=== PATIENT | female | born 1950 | race Caucasian/White ===

== ENCOUNTER → 2017-03-09 | Outpatient (CLI) | payer MEDICARE, OTHER ==
[~2017-03-09] MED LIST: ASPI-587 PO; CIPR250S2 PO; HYDR-2890 PO; HYDR-623 PO; HYDR1TAB PO; MELO-195 PO; MULT-608 PO; NAPR220T76 PO; OMEP-10 PO; OMEP20CA6 PO; PANT40TA2 PO; POLY17PO21 PO; POLY500P24 MC; SUCR1TAB36 PO; TRM50T PO
--- NOTE | 2017-03-09 18:10 | ECHOCARDIOGRAPHY REPORT ---
DATE OF SERVICE: 03/09/2017 REFERRING PHYSICIAN: Dr. Ned Sun. MEASUREMENT: LVID end diastolic 4.3, IVS thickness 1.1, LVPW thickness 1.0, left atrial diameter 3.9, ejection fraction 60%. FINDINGS: 1. Technical quality is good. 2. The left ventricle is normal in size with normal contractility, systolic function appeared to be normal, estimated ejection fraction 60%. Diastolic dysfunction is suggested by Doppler. 3. The left atrium is normal in size. No clot or thrombus were seen within the left atrium. 4. The right atrium and right ventricle are normal in size. No clot or thrombus were seen within the right side. 5. Mitral valve is normal in morphology with mild mitral regurgitation noted by color Doppler flow. Doppler across the mitral valve showed equalization of E and A, which is suggestive of diastolic dysfunction. 6. Aortic valve is functioning normally. The leaflets were not well visualized. There is no significant aortic stenosis or regurgitation was seen. 7. Tricuspid valve is normal in morphology with mild tricuspid regurgitation noted by color Doppler flow. Doppler across the tricuspid valve estimated pulmonary artery pressure of 20+ right atrial pressure. 8. Pulmonic valve is functioning normally. 9. No pericardial effusion. CONCLUSION: 1. Normal left ventricular size and systolic function, estimated ejection fraction 60%. 2. Mild mitral and tricuspid regurgitation. 3. Estimated pulmonary artery pressure of 30 mmHg. Job ID: [id number] DocumentID: [id number] Dictated Date: 03/09/2017 16:19:42 Vice President Underwriting Date: 03/09/2017 16:54:49 Dictated By: AIDAN GUO MD
== END ==
LOC: CARD 13:42
PROVIDERS: ATTEND Internal Medicine Cardiovascular Disease
DX: K21.9 Gastro-esophageal reflux disease without esophagitis (principal); E78.2 Mixed hyperlipidemia; R07.9 Chest pain, unspecified; I08.1 Rheumatic disorders of both mitral and tricuspid valves
CPT/HCPCS: 93306

== ENCOUNTER 2017-08-31 15:49 | Emergency (ER) | payer MEDICARE, OTHER ==
[~2017-08-31] VITALS: Ht 165.1 cm; Wt 72.6 kg
[2017-08-31] MEDS ORDERED: ADENOSINE 6 MG/2 ML (ADENOCARD) VIAL IV ONE ×3 (15:53→16:00)
[2017-08-31] MEDS ORDERED: NS IV 1000 ML 1,000 ML ONE (15:55)
[2017-08-31] MEDS ORDERED: ASPIRIN 81 MG CHEW (CHILDREN'S ASA) PO STA (16:08)
[2017-08-31] MEDS ORDERED: NS IV 1000 ML 1,000 ML IV ONE (16:09)
--- NOTE | 2017-08-31 16:21 | ED Cardiac General ---
History of Present Illness General Chief Complaint: Cardiac/General Problems Stated Complaint: HEART PROBLEMS;HEART RACING Source: patient Exam Limitations: no limitations (MERCY JEAN BAPTISTE MD) History of Present Illness Time seen by provider: 15:51 Initial Comments Here with report of palpitations that started about 2 p.m. today. States that she feels a heaviness and palpitations with this. She did get clammy earlier but that has improved. School nurse took her pulse and was unable to read it because it was too fast so sent her here to the ER for evaluation. Her primary vocational education teacher is Dr. Hernandez with PCP of Dr. Sun. Doesn't really any significant medical problems. Takes a baby aspirin daily as well as a stomach medicine and low-dose cholesterol medicine. Denies nausea, vomiting, breathing problems, sweating or weakness. Timing/Duration: 1-3 hours, constant Severity: mild Location: central (pressure) Activities at Onset: none Prior CP/Workup: no prior chest pain Modifying Factors: improves with rest NTG SL LAMP SHADE SEWER: No ASA po LAMP SHADE SEWER: Yes Associated Systoms: No Diaphoresis, No Nausea/Vomiting, No Shortness of Air, No Weakness (MERCY JEAN BAPTISTE MD) Allergies and Home Medications Allergies Coded Allergies: No Known Drug Allergies (Unverified , 01/16/12) Home Medications Hydrocodone Bit/Acetaminophen 1 Tab Tablet, 1 EACH PO Q 4 - 6 HRS PRN, #60 Ref 4 Prescribed by: SOCORRO TOWNSEND on 05/01/14 1106 Pantoprazole Sodium 40 Mg Tablet.dr, 40 MG PO DAILY, #90 Prescribed by: KALYAN DALE on 01/21/16 1534 Polyethylene Glycol 3350 17 Gm Powd.pack, 17 GM PO DAILY, (Reported) Sucralfate 1 Gm Tablet, 1 GM PO QID, #120 Prescribed by: KALYAN DALE on 01/21/16 1534 Tramadol Hcl 50 Mg Tab, 50 MG PO Q4H, #60 Ref 1 Prescribed by: SOCORRO TOWNSEND on 05/01/14 1106 Review of Systems Constitutional: see HPI, No chills, No diaphoresis, No fever EENTM: No Symptoms Reported Respiratory: No Symptoms Reported Cardiovascular: See HPI, Denies Edema, Palpitations Gastrointestinal: Denies Nausea, Denies Vomiting Genitourinary: No Symptoms Reported Musculoskeletal: no symptoms reported Skin: no symptoms reported (MERCY JEAN BAPTISTE MD) All Other Systems Reviewed Negative Unless Noted: Yes (MERCY JEAN BAPTISTE MD) Past Jzeosqx-Jqtcly-Vjzqad Hx Patient Social History Alcohol Use: Denies Use Recreational Drug Use: No Smoking Status: Never a Smoker 2nd Hand Smoke Exposure: No Recent Foreign Travel: No Contact w/Someone Who Travel: No Recent Hopitalizations: No Physical Abuse: No Sexual Abuse: No (MERCY JEAN BAPTISTE MD) Immunizations Up To Date Tetanus Booster (TDap): Unknown Date of Pneumonia Vaccine: Nov 23, 2015 (MERCY JEAN BAPTISTE MD) Surgeries History of Surgeries: Yes Surgeries: Abdominal, Section, Gallbladder, Orthopedic (MERCY JEAN BAPTISTE MD) Respiratory History of Respiratory Disorde: No (MERCY JEAN BAPTISTE MD) Cardiovascular History of Cardiac Disorders: No Cardiac Disorders: High Cholesterol (MERCY JEAN BAPTISTE MD) Neurological History of Neurological Disord: No (MERCY JEAN BAPTISTE MD) Reproductive System Hx Reproductive Disorders: No (MERCY JEAN BAPTISTE MD) Gastrointestinal History of Gastrointestinal Di: Yes Gastrointestinal Disorders: Gastroesophageal Reflux (MERCY JEAN BAPTISTE MD) Musculoskeletal History of Musculoskeletal Dis: Yes (ARTHRITIS, DJD) (MERCY JEAN BAPTISTE MD) Endocrine History of Endocrine Disorders: No (MERCY JEAN BAPTISTE MD) Cancer History of Cancer: No (MERCY JEAN BAPTISTE MD) Psychosocial History of Psychiatric Problem: No Suicide Risk Score: 0 (MERCY JEAN BAPTISTE MD) Integumentary History of Skin or Integumenta: No (MERCY JEAN BAPTISTE MD) Blood Transfusions History of Blood Disorders: No Adverse Reaction to a Blood Tr: No (MERCY JEAN BAPTISTE MD) Reviewed Nursing Assessment Reviewed/Agree w Nursing PMH: Yes (MERCY JEAN BAPTISTE MD) Family Medical History Significant Family History: No Pertinent Family Hx Family Medial History: Cancer 19 MOTHER (LARYNX AND SPINE ) Family history: Cardiovascular disease 19 FATHER (MERCY JEAN BAPTISTE MD) Family Medial History: Cancer 19 MOTHER (LARYNX AND SPINE ) Family history: Cardiovascular disease 19 FATHER (KARLENE HOLMAN APRN) Physical Exam Vital Signs Vital Sign - Last 12Hours 08/31/17 15:49 Temp 96.5 Pulse 186 Resp 10 B/P (MAP) 115/84 Pulse Ox 97 O2 Delivery Room Air (KARLENE HOLMAN APRN) Vital Signs Capillary Refill : Less Than 3 Seconds (MERCY JEAN BAPTISTE MD) General Appearance: No Apparent Distress, WD/WN HEENT: PERRL/EOMI, Pharynx Normal Neck: Non Tender, Supple Respiratory: Lungs Clear, Normal Breath Sounds Cardiovascular: No Murmur, Tachycardia Gastrointestinal: Non Tender, Soft Extremity: Normal Inspection, Normal Range of Motion, Non Tender, No Calf Tenderness Neurologic/Psychiatric: Alert, Oriented x3 Skin: Normal Color, Warm/Dry (MERCY JEAN BAPTISTE MD) Progress/Results/Core Measures Results/Orders Lab Results Laboratory Tests Test 08/31/17 16:00 08/31/17 18:20 Range/Units White Blood Count 7.5 4.3-11.0 10^3/uL Red Blood Count 4.99 4.35-5.85 10^6/uL Hemoglobin 15.3 11.5-16.0 G/DL Hematocrit 45 35-52 % Mean Corpuscular Volume 90 80-99 FL Mean Corpuscular Hemoglobin 31 25-34 PG Mean Corpuscular Hemoglobin Concent 34 32-36 G/DL Red Cell Distribution Width 13.2 10.0-14.5 % Platelet Count 640 H 130-400 10^3/uL Mean Platelet Volume 10.5 H 7.4-10.4 FL Neutrophils (%) (Auto) 59 42-75 % Lymphocytes (%) (Auto) 27 12-44 % Monocytes (%) (Auto) 11 0-12 % Eosinophils (%) (Auto) 2 0-10 % Basophils (%) (Auto) 1 0-10 % Neutrophils # (Auto) 4.5 1.8-7.8 X 10^3 Lymphocytes # (Auto) 2.0 1.0-4.0 X 10^3 Monocytes # (Auto) 0.8 0.0-1.0 X 10^3 Eosinophils # (Auto) 0.1 0.0-0.3 10^3/uL Basophils # (Auto) 0.1 0.0-0.1 10^3/uL Prothrombin Time 14.6 12.2-14.7 SEC INR Comment 1.1 0.8-1.4 Activated Partial Thromboplast Time 29 24-35 SEC D-Dimer 0.37 0.00-0.49 UG/ML Sodium Level 140 135-145 MMOL/L Potassium Level 3.8 3.6-5.0 MMOL/L Chloride Level 107 98-107 MMOL/L Carbon Dioxide Level 20 L 21-32 MMOL/L Anion Gap 13 5-14 MMOL/L Blood Urea Nitrogen 15 7-18 MG/DL Creatinine 1.81 H 0.60-1.30 MG/DL Estimat Glomerular Filtration Rate 28 BUN/Creatinine Ratio 8 Glucose Level 111 H 70-105 MG/DL Calcium Level 8.8 8.5-10.1 MG/DL Magnesium Level 1.9 1.8-2.4 MG/DL Total Bilirubin 0.5 0.1-1.0 MG/DL Aspartate Amino Transf (AST/SGOT) 45 H 5-34 U/L Alanine Aminotransferase (ALT/SGPT) 51 0-55 U/L Alkaline Phosphatase 101 40-136 U/L Myoglobin 93.2 H 10.0-92.0 NG/ML Troponin I < 0.30 <0.30 NG/ML Total Protein 7.1 6.4-8.2 GM/DL Albumin 3.8 3.2-4.5 GM/DL Thyroid Stimulating Hormone (TSH) 0.75 0.35-4.94 UIU/ML (KARLENE HOLMAN APRN) My Orders Orders - KARLENE HOLMAN APRN Myoglobin Serum (08/31/17 18:02) Troponin I (08/31/17 18:02) (KARLENE HOLMAN APRN) Medications Given in ED Current Medications Medications Dose Ordered Sig/Thu Route Start Time Stop Time Status Last Admin Dose Admin Adenosine 6 mg ONCE ONCE IV 08/31/17 16:00 08/31/17 16:01 DC 08/31/17 16:03 6 MG Adenosine 12 mg ONCE ONCE IV 08/31/17 16:00 08/31/17 16:01 DC 08/31/17 16:04 12 MG Metoprolol Succinate 25 mg ONCE ONCE PO 08/31/17 16:15 08/31/17 16:16 DC 08/31/17 16:22 25 MG Sodium Chloride 500 ml @ 0 mls/hr Q0M ONCE IV 08/31/17 17:41 08/31/17 17:43 DC 08/31/17 17:54 0 MLS/HR Sodium Chloride 1,000 ml @ 0 mls/hr Q0M ONCE IV 08/31/17 16:09 08/31/17 16:10 DC 08/31/17 16:05 0 MLS/HR (KARLENE HOLMAN APRN) Vital Signs/I&O Vital Sign - Last 12Hours 08/31/17 15:49 Temp 96.5 Pulse 186 Resp 10 B/P (MAP) 115/84 Pulse Ox 97 O2 Delivery Room Air (KARLENE HOLMAN APRN) Progress Note : Progress Note Seen and evaluated. Supraventricular tachycardia noted on monitor and EKG. Advanced medical maneuvers attempted with Nehemias rounds and laying back with leg lift 2 without improvement in her heart rate. Adenosine 6 mg IV attempted which did not change rate. Adenosine 12 mg IV and then given and rate and rhythm change noted. Rate decreased to the 90s. Patient feels much better. Normal saline 1 L bolus initiated. I did discuss the case with Dr. Hernandez. We will give Toprol-XL 25 mg by mouth. Patient does have a mild first degree block and he is okay with the Toprol. Labs, EKG and chest x-ray ordered. Aspirin 324 mg by mouth ordered. Monitor patient. 1745: Labs reviewed. Myoglobin slightly elevated. Patient has been working outside quite a bit this week and her kidney function is elevated and this is likely related to that but we will recheck it as well as troponin to give her indication of rise or stability. All of this was discussed with the patient and family who agree. Repeat normal saline 500 mL bolus. Patient is urinating well. She does admit that she drinks 3 sodas a day but doesn't really drink water and this is likely the cause of the elevated serum creatinine. She was instructed on ensuring adequate fluid intake. Also she was counseled on the need for follow-up with her doctor. We will recheck myoglobin and troponin at 615 p.m. (MERCY JEAN BAPTISTE MD) ECG Initial ECG Impression Date: Aug 31, 2017 Initial ECG Impression Time: 15:53 Initial ECG Rate: 187 Initial ECG Rhythm: SVT Initial ECG Impression: SVT Comment SVT with normal axis. No evidence of ST elevation RI. No previous for comparison. Interpreted by me. EKG : EKG Time: 16:02 Rate: 97 Rhythm: Normal Sinus Intervals: CO (first degree block) ECG Impression: 1st Degree AV Block Comment First degree block with occasional PVC. Normal axis. Change from previous done earlier as now is in sinus rhythm. No evidence of ST elevation RI. Interpreted by me. (MERCY JEAN BAPTISTE MD) Diagnostic Imaging Diagonstic Imaging: Xray Plain Films/CT/US/NM/MRI: chest Comments NAME: [facility] REC#: [id number] PT STATUS: REG ER : 1950 PHYSICIAN: MERCY JEAN BAPTISTE MD ADMIT DATE: 08/31/17/ER Draft Date of Exam:08/31/17 CHEST 1 VIEW, AP/PA ONLY EXAMINATION: Portable upright radiograph of the chest. INDICATION: Palpitations. FINDINGS: There is mild cardiomegaly with minimal vascular congestion. There is no focal consolidation. No effusion or pneumothorax. The mediastinum and kavita appear markable. IMPRESSION: Cardiomegaly with mild vascular congestion. Dictated on workstation # [id number] Dict: 08/31/17 1621 Trans: 08/31/17 1641 [facility] [id number] Interpreted by: ALEXANDRIA SOTO MD Electronically signed by: (MERCY JEAN BAPTISTE MD) Departure Impression Impression: Primary Impression: SVT (supraventricular tachycardia) Disposition: 01 HOME, SELF-CARE Condition: Stable Departure-Patient Inst. Decision time for Depature: 18:50 (KARLENE HOLMAN APRN) Referrals: RYLEY SUN DO (PCP/Family) Primary Care Physician Patient Instructions: Paroxysmal Supraventricular Tachycardia (DC) Add. Discharge Instructions: 1. Follow up with Dr Sun next week for recheck 2. Return to ER for any concerns or worsening symptoms All discharge instructions reviewed with patient and/or family. Voiced understanding. Copy Copies To 1: AIDAN HERNANDEZ MD Copies To 2: RYLEY SUN TIMOTHY D MD Aug 31, 2017 16:21 KARLENE HOLMAN APRN Aug 31, 2017 18:50
[2017-08-31 16:26] LABS: BASOPHILS # (AUTO) 0.1 10^3/uL (0.0-0.1); BASOPHILS % (AUTO) 1 % (0-10); EOSINOPHILS # (AUTO) 0.1 10^3/uL (0.0-0.3); EOSINOPHILS % (AUTO) 2 % (0-10); LYMPHOCYTES % (AUTO) 27 % (12-44); MEAN CORPUSCULAR HEMOGLOBIN 31 PG (25-34); MEAN CORPUSCULAR HGB CONC 34 G/DL (32-36); MEAN CORPUSCULAR VOLUME 90 FL (80-99); MEAN PLATELET VOLUME 10.5 FL (7.4-10.4); MONOCYTES # (AUTO) 0.8 X 10^3 (0.0-1.0); MONOCYTES % (AUTO) 11 % (0-12); NEUTROPHILS # (AUTO) 4.5 X 10^3 (1.8-7.8); NEUTROPHILS % (AUTO) 59 % (42-75); PLATELET COUNT 640 10^3/uL (130-400); RED BLOOD COUNT 4.99 10^6/uL (4.35-5.85); RED CELL DISTRIBUTION WIDTH 13.2 % (10.0-14.5); WHITE BLOOD COUNT 7.5 10^3/uL (4.3-11.0)
[2017-08-31 16:39] LABS: INR 1.1 (0.8-1.4); PROTHROMBIN TIME PATIENT 14.6 SEC (12.2-14.7)
--- NOTE | 2017-08-31 16:42 | Diagnostic Imaging Report ---
EXAMINATION: Portable upright radiograph of the chest. INDICATION: Palpitations. FINDINGS: There is mild cardiomegaly with minimal vascular congestion. There is no focal consolidation. No effusion or pneumothorax. The mediastinum and kavita appear markable. IMPRESSION: Cardiomegaly with mild vascular congestion. Dictated by: Dictated on workstation # [id number]
[2017-08-31 16:54] LABS: ALANINE AMINOTRANSFERASE 51 U/L (0-55); ALBUMIN 3.8 GM/DL (3.2-4.5); ANION GAP 13 MMOL/L (5-14); ASPARTATE AMINO TRANSFERASE 45 U/L (5-34); BILIRUBIN,TOTAL 0.5 MG/DL (0.1-1.0); BLOOD UREA NITROGEN 15 MG/DL (7-18); BUN/CREATININE RATIO 8; CALCIUM 8.8 MG/DL (8.5-10.1); CARBON DIOXIDE 20 MMOL/L (21-32); CHLORIDE 107 MMOL/L (98-107); CREATININE SERUM 1.81 MG/DL (0.60-1.30); GFR ESTIMATED 28; GLUCOSE 111 MG/DL (70-105); MAGNESIUM 1.9 MG/DL (1.8-2.4); POTASSIUM 3.8 MMOL/L (3.6-5.0); SODIUM 140 MMOL/L (135-145); TOTAL PROTEIN 7.1 GM/DL (6.4-8.2)
[2017-08-31 17:14] LABS: MYOGLOBIN SERUM 93.2 NG/ML (10.0-92.0)
[2017-08-31] MEDS ORDERED: NS IV 500 ML 500 ML IV ONE (17:41)
[2017-08-31 18:51] LABS: TROPONIN I < 0.30 NG/ML (<0.30)
[2017-08-31 19:05] VITALS: BP 123/80
== END 2017-08-31 19:05 | disposition home or self-care (01) ==
LOC: EDUNIT# 15:49 → ER 15:51
DX: I47.1 Supraventricular tachycardia (principal); E78.00 Pure hypercholesterolemia, unspecified; K21.9 Gastro-esophageal reflux disease without esophagitis; M19.90 Unspecified osteoarthritis, unspecified site; Z82.49 Family history of ischemic heart disease and other diseases of the circulatory system; Z80.8 Family history of malignant neoplasm of other organs or systems; Z87.59 Personal history of other complications of pregnancy, childbirth and the puerperium
CPT/HCPCS: 36415; 71010; 80053; 83735; 83874; 84443; 84484; 85025; 85379; 85610; 85730; 93005; 93041

== ENCOUNTER → 2017-09-11 | Outpatient (CLI) | payer MEDICARE, OTHER ==
[~2017-09-11] MED LIST changes: +CATHETER FLUSH 10 ML SYR IV PRN; +REGADENOSON 0.4 MG/5 ML SYR (LEXISCAN) IV ONE
[2017-09-11 08:01] VITALS: BP 142/75
[2017-09-11 08:49] LABS: ANION GAP 10 MMOL/L (5-14); BLOOD UREA NITROGEN 15 MG/DL (7-18); BUN/CREATININE RATIO 18; CALCIUM 8.8 MG/DL (8.5-10.1); CARBON DIOXIDE 24 MMOL/L (21-32); CHLORIDE 107 MMOL/L (98-107); CREATININE SERUM 0.82 MG/DL (0.60-1.30); GFR ESTIMATED > 60; GLUCOSE 101 MG/DL (70-105); POTASSIUM 3.9 MMOL/L (3.6-5.0); SODIUM 141 MMOL/L (135-145)
--- NOTE | 2017-09-11 23:00 | STRESS TEST ---
DATE OF SERVICE: 09/11/2017 NUCLEAR MYOVIEW REPORT REFERRING PHYSICIAN: Ned Sun DO. SUMMARY: The patient was injected with 10.52 mCi of technetium-99 Myoview and the resting images were obtained. With peak stress test, a 32.5 mCi of technetium-99 Myoview were injected and stress images were obtained. The resting and stress images were reviewed and compared in the short axis, horizontal long axis, and vertical long axis views. Review of the images showed diaphragmatic attenuation with mild decrease uptake involving the mid to apical inferior wall with mild reversibility. SSS is 0. Transient ischemic dilatation with TID value 1.26. On the gated images, the left ventricle appeared to be normal size with normal contractility. Calculated ejection fraction is 69%. CONCLUSION: 1. Questionable mild ischemia involving the mid to apical inferior wall. 2. Transient ischemic dilatation with TID value 1.26. 3. Normal left ventricular size with normal contractility. Calculated ejection fraction is 69%. Job ID: [id number] DocumentID: [id number] Dictated Date: 09/11/2017 16:44:35 Warp Hauler Date: 09/11/2017 19:16:51 Dictated By: AIDAN GUO MD
== END ==
LOC: CARD 06:52
PROVIDERS: ATTEND Internal Medicine
DX: I47.1 Supraventricular tachycardia (principal); E86.0 Dehydration
CPT/HCPCS: 36415; 78452; 80048; 93017; 93306

== ENCOUNTER 2017-09-20 11:27 | Day surgery (SDC) | payer MEDICARE, OTHER ==
[2017-09-20] VITALS (15 sets, daily range): BP systolic 100–138; BP diastolic 57–78
[~2017-09-20] VITALS: Ht 165.1 cm; Wt 73.0 kg
[~2017-09-20 11:27] MED LIST changes: -CATHETER FLUSH 10 ML SYR IV PRN; -REGADENOSON 0.4 MG/5 ML SYR (LEXISCAN) IV ONE
[2017-09-20] MEDS ORDERED: LIDOCAINE 1% INJ 50 ML (XYLOCAINE) VIAL ONE (11:33)
[2017-09-20] MEDS ORDERED: HEParin (CATH LAB) 2,000 ML IV ONE (11:33)
[2017-09-20] MEDS ORDERED: NS IV 1000 ML 1,000 ML ONE (11:33)
--- NOTE | 2017-09-20 11:47 | Cardiac Procedure Note-CS/ASA ---
Pre-Procedure Note Pre-Op Procedure Note H&P Reviewed The H&P was reviewed, patient examined and no changes noted. Date H&P Reviewed: Sep 20, 2017 Time H&P Reviewed: 11:47 Conscious Sedation Pre-Proced Time Reviewed: 11:47 ASA Class: 3 Airway Mallampati Classification: ([place] appropriate class) I. II. III, IV Lungs Heart ASA score ASA 1: a normal healthy patient ASA 2: a patient with a mild systemic disease (mid diabetes, controlled hypertension, obesity x ASA 3: a patient with a severe systemic disease that limits activity (angina , COPD, prior Myocardial infarction) ASA 4: a patient with an incapacitating disease that is a constant threat to life (CHF, renal failure) ASA 5: a moribund patient not expected to survive 24 hrs. (ruptured aneurysm) ASA 6: a declared brain patient whose organs are being harvested. For emergent operations, add the letter E after the classification Grade 3 Sedation Plan: Analgesia, Amnesia, Plan communicated to team members, Discussed options with patient/fam, Discussed risks with patient/fam Note The patient is an appropriate candidate to undergo the planned procedure, sedation, and anesthesia. The patient immediately re-assessed prior to indication. AIDAN GUO MD Sep 20, 2017 11:47
[2017-09-20 11:52] LABS: RED BLOOD COUNT 4.87 10^6/uL (4.35-5.85); WHITE BLOOD COUNT 6.4 10^3/uL (4.3-11.0)
[2017-09-20 11:53] LABS: BILIRUBIN,URINE NEGATIVE (NEGATIVE); KETONES,URINE NEGATIVE (NEGATIVE); LEUKOCYTE ESTERASE ,URINE 2+ (NEGATIVE); NITRITE,URINE NEGATIVE (NEGATIVE); PH,URINE 6 (5-9); PROTEIN,URINE NEGATIVE (NEGATIVE); UROBILINOGEN,URINE NORMAL (NORMAL)
--- NOTE | 2017-09-20 11:58 | Diagnostic Imaging Report ---
INDICATION: Hypertension FINDINGS: The lungs are clear. The heart and vessels normal. There is no effusion or pneumothorax. IMPRESSION: Negative. Dictated by: Dictated on workstation # [id number]
[2017-09-20] MEDS ORDERED: NS IV 1000 ML 1,000 ML IV SCH ×3 (12:00→13:11)
[2017-09-20] MEDS ORDERED: OMG1KC PO (12:03)
[2017-09-20] MEDS ORDERED: PANT40TA2 PO (12:03)
[2017-09-20] MEDS ORDERED: ATOR10TA66 PO (12:03)
[2017-09-20] MEDS ORDERED: ASPI-983 PO (12:03)
[2017-09-20] MEDS ORDERED: OMEG-160 PO (12:03)
[2017-09-20 12:11] LABS: ALBUMIN 4.2 GM/DL (3.2-4.5); BILIRUBIN,TOTAL 0.8 MG/DL (0.1-1.0); CALCIUM 8.9 MG/DL (8.5-10.1); CREATININE SERUM 0.94 MG/DL (0.60-1.30); INR 1.1 (0.8-1.4); PROTHROMBIN TIME PATIENT 14.1 SEC (12.2-14.7); TOTAL PROTEIN 7.6 GM/DL (6.4-8.2)
[2017-09-20] MEDS ORDERED: NITROGLYCERIN DRIP 25 MG/D5W 250 ML IV ONE (12:29)
[2017-09-20] MEDS ORDERED: fentaNYL INJECTION 100 MCG/2 ML AMP ONE (12:29)
[2017-09-20] MEDS ORDERED: VERAPAMIL 5 MG/2 ML (CALAN) VIAL IV ONE (12:29)
[2017-09-20] MEDS ORDERED: HEParin 1000 UNIT/ML (10ML VIAL) FOR BOLUS ONE (12:29)
[2017-09-20] MEDS ORDERED: MIDAZOLAM 2 MG/2 ML (VERSED) VIAL ONE (12:29)
--- NOTE | 2017-09-20 13:13 | Discharge Inst-Post CATH ---
Discharge Inst-CATH Post Cardiac Cath D/C Inst Follow Up/Plan Appointment with Dr. Hernandez's office in 2-4 weeks CARDIAC CATH DISCHARGE INSTRUCTIONS *Hold Metformin for 48 hours post heart cath. ACTIVITY * Go Home directly and rest. * Limit activity of the leg (or wrist if it was used) for 7 days including aerobics, swimming, jogging, bicycling, etc. * Restrict stair-climbing for 7 days if possible, if not, climb up with your non -cath leg, then bring together on the same step. * Avoid lifting, pushing, pulling or excessive movement of the affected extremity for 7 days. * Customary sexual activity may be resumed after 2 days-use caution not to use a position that strains or causes pain to the affected extremity. * No driving for 24 hours. * NO SMOKING. * Avoid straining for bowel movements for 7 days. * Gentle walking on level ground is allowed. * Returning to work will depend on the type of procedure and the results. Your doctor will discuss this with you. CALL YOUR DOCTOR FOR ANY OF THE FOLLOWING: *If bleeding from the puncture site occurs- Apply gentle pressure to site with clean cloth and call your doctor or EMS. * If a knot or lump forms under the skin, increases in size, or causes pain. * If bruising appears to be worsening or moving further down your leg instead of disappearing. * Temperature above 101 F. CARE OF YOUR GROIN INCISION; * Bruising or purple discoloration of the skin near the puncture site is common. * You may shower only, no bathtub bathing for 5 days. Be careful to avoid slipping as your leg may feel stiff. * If a closure device was used on your femoral artery, please see the attached guide regarding care of the device and your leg. * REMOVE the dressing from your groin the next day after your procedure in the shower. CARE OF YOUR WRIST INCISION; * Bruising or purple discoloration of the skin near the puncture site is common. * You may shower. * DO NOT submerge wrist. * Remove dressing in 24 hours. AIDAN HERNANDEZ MD Sep 20, 2017 13:13
--- NOTE | 2017-09-20 13:17 | Cardiac Cath Report ---
Cardiac Cath Report Physician (s)/Airbrush Artist (s) Physician AIDAN GUO MD Pre-Procedure Diagnosis Pre-Procedure Diagnosis: coronary artery disease Post-Procedure Note Procedure Start Date: Sep 20, 2017 Name of Procedure: coronary angiogram 10014 Findings/Procedure Note PROCEDURE NOTE: After explaining the procedure to the patient, all pros and cons were explained, all questions were answered. The patient signed the consent and then she was placed on the cardiac catheterization laboratory. The patient was placed on the cardiac catheterization laboratory. wrist was prepped SL fashion local anesthesia was used. Sheath placed in the right radial artery. Hayden catheter was used for access the right and left coronary system At the end of the procedure the sheath was removed. Closure device was used FINDINGS: Hemodynamics Aorta 108/71 mean of 54 ANATOMY: Left Main is free of obstructive disease Left Anterior Descending has mild disease distally Left Circumflex has mild disease at the midportion nonobstructive disease Right Coronory Artery his small with no obstructive disease CONCLUSION: 1. Small coronary system with mild disease nonobstructive disease 2. Normal aortic pressure DISCUSSION AND RECOMMENDATION: Continue medical therapy, abnormal stress test is probably due to extracardiac attenuation Anesthesia Type: Conscious Sedation Estimated blood loss (mL): 5 ml Contrast Amount: 33 ml Total Radiation Dose: 218 mGy Post-Procedure Diagnosis Post-operative diagnosis: Chest pain nonspecific etiology Coronary artery disease Hyperlipidemia Gastroesophageal reflux disease AIDAN GUO MD Sep 20, 2017 13:17
== END 2017-09-20 17:15 | disposition home or self-care (01) ==
LOC: CATH 11:27 → ICU 13:24 → CATH 17:15
PROVIDERS: ATTEND Internal Medicine Cardiovascular Disease
DX: R07.89 Other chest pain (principal); I25.10 Atherosclerotic heart disease of native coronary artery without angina pectoris; E78.2 Mixed hyperlipidemia; I65.23 Occlusion and stenosis of bilateral carotid arteries; K21.9 Gastro-esophageal reflux disease without esophagitis; R94.39 Abnormal result of other cardiovascular function study; Z79.82 Long term (current) use of aspirin; Z79.899 Other long term (current) drug therapy; Z96.652 Presence of left artificial knee joint
CPT/HCPCS: 36415; 71010; 80053; 80061; 81000; 85027; 85610; 85730; 87081; 87088; 93005; 93454

== ENCOUNTER 2018-06-25 19:14 | Emergency (ER) | payer MEDICARE, OTHER ==
[~2018-06-25] VITALS: Ht 165.1 cm; Wt 73.0 kg
[~2018-06-25 19:14] MED LIST changes: +ASPI-983 PO; +ATOR10TA66 PO; +OMEG-160 PO; +OMG1KC PO
[2018-06-25] MEDS ORDERED: ADENOSINE 6 MG/2 ML (ADENOCARD) VIAL IV ONE ×2 (19:30)
[2018-06-25] MEDS: ADENOSINE 6 MG/2 ML (ADENOCARD) VIAL IV ONE ×2 (19:33→19:37)
[2018-06-25] MEDS ORDERED: NS IV 1000 ML 1,000 ML IV ONE (19:41)
[2018-06-25] MEDS ORDERED: ASPIRIN 81 MG CHEW (CHILDREN'S ASA) PO ONE (19:45)
[2018-06-25] MEDS ORDERED: DILTIAZEM 25 MG/5 ML INJ (CARDIZEM) VIAL IVP ONE (19:45)
[2018-06-25 19:47] LABS: BASOPHILS # (AUTO) 0.1 10^3/uL (0.0-0.1); BASOPHILS % (AUTO) 1 % (0-10); EOSINOPHILS # (AUTO) 0.2 10^3/uL (0.0-0.3); EOSINOPHILS % (AUTO) 2 % (0-10); HEMATOCRIT 43 % (35-52); HEMOGLOBIN 15.1 G/DL (11.5-16.0); LYMPHOCYTES # (AUTO) 2.1 X 10^3 (1.0-4.0); LYMPHOCYTES % (AUTO) 22 % (12-44); MEAN CORPUSCULAR HEMOGLOBIN 31 PG (25-34); MEAN CORPUSCULAR HGB CONC 35 G/DL (32-36); MEAN CORPUSCULAR VOLUME 89 FL (80-99); MEAN PLATELET VOLUME 9.8 FL (7.4-10.4); MONOCYTES % (AUTO) 10 % (0-12); NEUTROPHILS # (AUTO) 6.5 X 10^3 (1.8-7.8); NEUTROPHILS % (AUTO) 66 % (42-75); PLATELET COUNT 718 10^3/uL (130-400); RED BLOOD COUNT 4.83 10^6/uL (4.35-5.85); RED CELL DISTRIBUTION WIDTH 13.6 % (10.0-14.5); WHITE BLOOD COUNT 9.8 10^3/uL (4.3-11.0)
--- NOTE | 2018-06-25 19:48 | ED Cardiac General ---
History of Present Illness General Stated Complaint: SOB/CARDIAC ISSUES Source: patient Exam Limitations: no limitations History of Present Illness Date Seen by Provider: Jun 25, 2018 Time Seen by Provider: 19:30 Initial Comments PT ARRIVES VIA POV FROM HOME C/O RAPID HEART BEAT SINCE 1800 STATES SHE HAD GONE TO A VOLLEYBALL GAME, AND WAS WALKING UP STAIRS OF BLEACHERS WHEN SHE SUDDENLY HAD RAPID HEART BEAT, SLIGHT SHORTNESS OF BREATH, SLIGHT LIGHTHEADEDNESS AND WAS SWEATY DROVE HOME AND THEN CAME HERE STATES NO CHEST PAIN NO LONGER SHORT OF BREATH NO SWEATS NOW NO SWELLING IN LEGS/ FEET OR PAIN IN [place] HAS HAD THIS ONE OTHER TIME IN JANUARY OF THIS YEAR SEEN BY DR. GUO AND HAD NORMAL STRESS TEST AND ECHOCARDIOGRAM IS NOT ON ANY MEDICATIONS FOR IT PCP: DR. HARVEY Allergies and Home Medications Allergies Coded Allergies: No Known Drug Allergies (Unverified , 01/16/12) Home Medications Aspirin 81 Mg Tablet.dr, 81 MG PO DAILY, (Reported) Atorvastatin Calcium 10 Mg Tablet, 10 MG PO DAILY, (Reported) [place] 3 Polyunsat Fatty Acids 1,000 Mg Cap, 1,000 MG PO EVENING, (Reported) [place]-3/Dha/Epa/Fish Oil 1 Each Capsule, 2,000 MG PO AM, (Reported) Pantoprazole Sodium 40 Mg Tablet.dr, 40 MG PO DAILY, (Reported) Patient Home Medication List Home Medication List Reviewed: Yes Review of Systems Review of Systems Constitutional: see HPI, diaphoresis, dizziness, weakness EENTM: No Symptoms Reported Respiratory: See HPI, Shortness of Air, SOA With Exertion Cardiovascular: See HPI; Denies Chest Pain, Denies Edema; Irregular Heart Rate , Lightheadedness, Palpitations; Denies Syncope Gastrointestinal: No Symptoms Reported; Denies Abdominal Pain, Denies Nausea, Denies Vomiting Genitourinary: No Symptoms Reported Musculoskeletal: no symptoms reported Skin: no symptoms reported Psychiatric/Neurological: No Symptoms Reported Endocrine: No Symptoms Reported Hematologic/Lymphatic: No Symptoms Reported Past Voaqhga-Hyxbta-Zaczqq Hx Patient Social History Alcohol Use: Denies Use Recreational Drug Use: No Smoking Status: Never a Smoker 2nd Hand Smoke Exposure: No Recent Foreign Travel: No Contact w/Someone Who Travel: No Recent Hopitalizations: No Immunizations Up To Date Tetanus Booster (TDap): Unknown Date of Pneumonia Vaccine: Nov 23, 2015 Date of Influenza Vaccine: Sep 05, 2017 Past Medical History Surgeries: Yes ( X 3; BILATERAL TOTAL KNEE REPLACEMENTS; COLON RESECTION FOR OBSTRUCTION; OPEN CHOLECYSTECTOMY) Abdominal, Bowel Surgery, Section, Gallbladder, Joint Replacement, Orthopedic Respiratory: No Cardiac: Yes (SVT--NORMAL ECHOCARDIOGRAM AND STRESS TEST 01/2018 ) High Cholesterol, Irregular Heartbeat Neurological: No Reproductive Disorders: No Genitourinary: No Gastrointestinal: Yes (S/P COLON RESECTION FOR OBSTRUCTION; OPEN CHOLECYSTECTOMY) Gastroesophageal Reflux, Obstructive Bowel, Gall Bladder Disease Musculoskeletal: Yes (ARTHRITIS, DJD) Arthritis Endocrine: No HEENT: No Cancer: No Psychosocial: No Integumentary: No Blood Disorders: No Adverse Reaction/Blood Tranf: No Family Medical History Cancer 19 MOTHER (LARYNX AND SPINE ) Family history: Cardiovascular disease 19 FATHER No Pertinent Family Hx Physical Exam Vital Signs Vital Signs - First Documented 06/25/18 06/25/18 19:30 21:28 Pulse 77 Resp 17 B/P (MAP) 81/54 (63) Pulse Ox 99 O2 Delivery Room Air Capillary Refill : Height, Weight, BMI Height: 5'5.00" Weight: 161lbs. 0.0oz. 73.962246cl; 26.8 BMI Method:Stated General Appearance: No Apparent Distress, WD/WN, Other (SMILING TALKATIVE) Neck: Full Range of Motion, Normal Inspection, Non Tender, Supple; No Carotid Bruit Respiratory: Normal Breath Sounds, No Accessory Muscle Use, No Respiratory Distress Cardiovascular: No Edema, No Gallop, No JVD, No Murmur, Normal Peripheral Pulses, Tachycardia Gastrointestinal: Normal Bowel Sounds, No Organomegaly, No Pulsatile Mass, Non Tender Extremity: Normal Capillary Refill, Normal Inspection, Normal Range of Motion, Non Tender, No Calf Tenderness, No Pedal Edema Neurologic/Psychiatric: Alert, Oriented x3, No Motor/Sensory Deficits, Normal Mood/Affect, 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-XII Norm as Tested Skin: Normal Color, Warm/Dry Progress/Results/Core Measures Results/Orders Lab Results Laboratory Tests Test 06/25/18 19:35 Range/Units White Blood Count 9.8 4.3-11.0 10^3/uL Red Blood Count 4.83 4.35-5.85 10^6/uL Hemoglobin 15.1 11.5-16.0 G/DL Hematocrit 43 35-52 % Mean Corpuscular Volume 89 80-99 FL Mean Corpuscular Hemoglobin 31 25-34 PG Mean Corpuscular Hemoglobin Concent 35 32-36 G/DL Red Cell Distribution Width 13.6 10.0-14.5 % Platelet Count 718 H 130-400 10^3/uL Mean Platelet Volume 9.8 7.4-10.4 FL Neutrophils (%) (Auto) 66 42-75 % Lymphocytes (%) (Auto) 22 12-44 % Monocytes (%) (Auto) 10 0-12 % Eosinophils (%) (Auto) 2 0-10 % Basophils (%) (Auto) 1 0-10 % Neutrophils # (Auto) 6.5 1.8-7.8 X 10^3 Lymphocytes # (Auto) 2.1 1.0-4.0 X 10^3 Monocytes # (Auto) 1.0 0.0-1.0 X 10^3 Eosinophils # (Auto) 0.2 0.0-0.3 10^3/uL Basophils # (Auto) 0.1 0.0-0.1 10^3/uL Prothrombin Time 14.4 12.2-14.7 SEC INR Comment 1.1 0.8-1.4 Activated Partial Thromboplast Time 33 24-35 SEC Sodium Level 140 135-145 MMOL/L Potassium Level 3.7 3.6-5.0 MMOL/L Chloride Level 105 98-107 MMOL/L Carbon Dioxide Level 19 L 21-32 MMOL/L Anion Gap 16 H 5-14 MMOL/L Blood Urea Nitrogen 17 7-18 MG/DL Creatinine 1.33 H 0.60-1.30 MG/DL Estimat Glomerular Filtration Rate 40 BUN/Creatinine Ratio 13 Glucose Level 147 H 70-105 MG/DL Calcium Level 9.2 8.5-10.1 MG/DL Corrected Calcium 9.2 8.5-10.1 MG/DL Magnesium Level 2.1 1.8-2.4 MG/DL Total Bilirubin 0.6 0.1-1.0 MG/DL Aspartate Amino Transf (AST/SGOT) 22 5-34 U/L Alanine Aminotransferase (ALT/SGPT) 26 0-55 U/L Alkaline Phosphatase 80 40-136 U/L Total Creatine Kinase 60 29-168 U/L Creatine Kinase MB 1.1 <6.6 NG/ML Myoglobin 70.1 10.0-92.0 NG/ML Troponin I < 0.30 <0.30 NG/ML B-Type Natriuretic Peptide 17.1 <100.0 PG/ML Total Protein 6.7 6.4-8.2 GM/DL Albumin 4.0 3.2-4.5 GM/DL TSH [place] Testing 1.24 0.35-4.94 UIU/ML My Orders Orders - KEN ALANIZ DO Cbc With Automated Diff (06/25/18) Magnesium (06/25/18) Chest 1 View, Ap/Pa Only (06/25/18) Ekg Tracing (06/25/18) Cardiac Profile 1 (06/25/18) Comprehensive Metabolic Panel (06/25/18) Myoglobin Serum (06/25/18) Protime With Inr (06/25/18) Partial Thromboplastin Time (06/25/18) O2 (06/25/18) Monitor-Rhythm Ecg Trace Only (06/25/18) Aspirin Chewable Tablet (Baby Aspirin Ch (06/25/18:45) Saline Lock/Iv-Start (06/25/18) Creatine Kinase (06/25/18) Creatine Kinase Mb (06/25/18) BNP (06/25/18) Thyroid Analyzer (06/25/18) Diltiazem Injection (Cardizem Injection) (06/25/18:45) Adenosine Injection (Adenocard Injection (06/25/18:30) Adenosine Injection (Adenocard Injection (06/25/18:30) Adenosine Injection (Adenocard Injection (06/25/18:45) Saline Lock/Iv-Start (06/25/18:41) Ns Iv 1000 Ml (Sodium Chloride 0.9%) (06/25/18:41) Ekg Tracing (06/26/18 03:10) Ekg Tracing (06/26/18 03:10) Medications Given in ED Vital Signs/I&O 06/25/18 06/25/18 19:30 21:28 Pulse 77 Resp 17 B/P (MAP) 81/54 (63) 128/75 (63) Pulse Ox 99 O2 Delivery Room Air 06/26/18 00:00 Intake Total 1000 ml Balance 1000 ml Progress Progress Note : Progress Note CONVERTED TO NSR WITH ADENOSINE 6 MG PT REMAINED IN NSR AND HAD NO COMPLAINTS OR SYMPTOMS FOR REMAINDER OF ER STAY Initial ECG Impression Date: Jun 25, 2018 Initial ECG Impression Time: 19:30 Initial ECG Rate: 152 Initial ECG Rhythm: SVT EKG : EKG Time: 19:34 Rate: 100 Rhythm: JUNCTIONAL RHYTHM Comment EKG #3 AT 1935-RATE 85, NSR, NO ACUTE CHANGES Diagnostic Imaging Comments CXR--NO ACUTE PROCESS, PENDING RADIOLOGIST REVIEW Reviewed: Reviewed by Me Departure Communication (Admissions) 2029--SPOKE WITH DR. GUO, HE ADVISES TO SEND PT HOME AND HE WILL SEE IN OFFICE THIS WEEK Impression Primary Impression: PSVT (paroxysmal supraventricular tachycardia) Disposition: 01 HOME, SELF-CARE Condition: Improved Departure-Patient Inst. Referrals: AIDAN GUO MD, WILLIAM J DO (PCP/Family) Primary Care Physician Patient Instructions: Paroxysmal Supraventricular Tachycardia (DC) Add. Discharge Instructions: HOME, REST AVOID CAFFEINE, DECONGESTANTS OR ANY STIMULANTS FOLLOW UP WITH DR GUO IN 1-2 DAYS--CALL IN AM TO MAKE APPOINTMENT RETURN TO ER IF SYMPTOMS RETURN KEN ALANIZ DO Jun 25, 2018 19:48
[2018-06-25 19:57] LABS: INR 1.1 (0.8-1.4); PROTHROMBIN TIME PATIENT 14.4 SEC (12.2-14.7)
[2018-06-25 20:05] LABS: ALANINE AMINOTRANSFERASE 26 U/L (0-55); ALKALINE PHOSPHATASE 80 U/L (40-136); BILIRUBIN,TOTAL 0.6 MG/DL (0.1-1.0); BUN/CREATININE RATIO 13; CALCIUM 9.2 MG/DL (8.5-10.1); CARBON DIOXIDE 19 MMOL/L (21-32); CHLORIDE 105 MMOL/L (98-107); CREATINE KINASE 60 U/L (29-168); CREATININE SERUM 1.33 MG/DL (0.60-1.30); GFR ESTIMATED 40; GLUCOSE 147 MG/DL (70-105); MAGNESIUM 2.1 MG/DL (1.8-2.4); POTASSIUM 3.7 MMOL/L (3.6-5.0); SODIUM 140 MMOL/L (135-145); TOTAL PROTEIN 6.7 GM/DL (6.4-8.2)
--- NOTE | 2018-06-25 20:07 | Diagnostic Imaging Report ---
INDICATION: Chest pain COMPARISON: 09/20/2017 TECHNIQUE: Single frontal radiograph of the chest dated 06/25/2018. FINDINGS: The cardiac silhouette is at the upper limits of normal in size. No significant pulmonary vascular congestion. The lungs are clear of focal pulmonary opacity. No pleural effusion. No pneumothorax. No acute osseous abnormality. IMPRESSION: Similar appearing examination without acute cardiopulmonary abnormality. Dictated by: Dictated on workstation # [id number]
[2018-06-25 20:13] LABS: CREATINE KINASE MB 1.1 NG/ML (<6.6); MYOGLOBIN SERUM 70.1 NG/ML (10.0-92.0)
[2018-06-25 21:28] VITALS: BP 128/75
== END 2018-06-25 21:30 | disposition home or self-care (01) ==
LOC: EDUNIT# 19:14 → ER 19:15
DX: I47.1 Supraventricular tachycardia (principal); E78.00 Pure hypercholesterolemia, unspecified; K21.9 Gastro-esophageal reflux disease without esophagitis; Z80.8 Family history of malignant neoplasm of other organs or systems; Z87.448 Personal history of other diseases of urinary system; Z82.49 Family history of ischemic heart disease and other diseases of the circulatory system; Z87.19 Personal history of other diseases of the digestive system; Z79.82 Long term (current) use of aspirin; Z98.890 Other specified postprocedural states; Z96.653 Presence of artificial knee joint, bilateral; Z90.49 Acquired absence of other specified parts of digestive tract
CPT/HCPCS: 36415; 71045; 80053; 82550; 82553; 83735; 83874; 83880; 84443; 84484; 85025; 85610; 85730; 93005; 93041; 96361; 96374

== ENCOUNTER 2018-12-26 02:59 | Emergency (ER) | payer MEDICARE, OTHER ==
[~2018-12-26] VITALS: Ht 165.1 cm; Wt 72.6 kg
--- OUTSIDE RECORDS SUMMARY | 2018-12-26 03:06 | XMS REPORT | Continuity of Care Document ---
Demographics Preferred Language Unknown Marital Status Unknown Restoration Affiliation Unknown Race Unknown Ethnic Group Unknown Author Author [facility] Address Unknown Phone Unavailable Allergies Active Description Code Type Severity Reaction Onset Reported/Identified Relationship to Patient Clinical Status Yes No Known Drug Allergies [id number] Drug Allergy Unknown N/A 01/16/2012 Medications There is no data. Problems Date Dx Coded Attending Type Code Diagnosis Diagnosed By 01/09/2012 564.00 CONSTIPATION 03/05/2012 Ot V58.31 ENCOUNTER FOR CHANGE OR REMOVAL OF SURGI 06/22/2012 Ot 998.59 OTH POSTOPER INFECTION 06/22/2012 Ot V58.30 ENCOUNTER FOR CHANGE OR REMOVAL OF NONSU 03/06/2014 JOSELITO DO KANDY Hills Ot 715.36 LOC OSTEOARTH NOS-L/LEG 05/01/2014 JOSELITO DO KANDY Hills Ot 715.36 LOC OSTEOARTH NOS-L/LEG 05/01/2014 JOSELITO , KANDY Hills Ot 788.20 RETENTION OF URINE NOS 01/21/2016 Ot 562.10 01/21/2016 Ot 562.10 01/21/2016 Ot V72.63 01/21/2016 Ot V74.8 01/21/2016 JOSELITO DO, KANDY Hills Ot 715.36 01/21/2016 JOSELITO DO, KANDY Hills Ot V72.63 01/21/2016 JOSELITO DO, KANDY F Ot V72.81 01/21/2016 JOSELITO DO, KANDY Hills Ot V72.83 01/21/2016 JOSELITO DO, KANDY F Ot V72.84 01/21/2016 JOSELITO DO, KANDY F Ot V74.8 01/21/2016 JOSELITO DO, KANDY F Ot 715.36 01/21/2016 JOSELITO DO, KANDY F Ot 791.9 01/21/2016 JOSELITO DO, KANDY F Ot V72.63 01/21/2016 JOSELITO DO, KANDY Reinier Ot V74.8 01/21/2016 JOSELITO DO, KANDY Reinier Ot V43.65 01/21/2016 JOSELITO DO KANDY Hills Ot V58.61 01/21/2016 JOSELITO DO KANDY Reinier Ot V58.83 01/21/2016 CHITO PRIEST, KALYAN Nicole K21.0 GASTRO-ESOPHAGEAL REFLUX DISEASE WITH ES 01/21/2016 CHITO PRIEST, KALYAN Ot K22.2 ESOPHAGEAL OBSTRUCTION 01/21/2016 CHITO PRIEST, KALYAN Ot K29.70 GASTRITIS, UNSPECIFIED, WITHOUT BLEEDING 01/21/2016 CHITO PRIEST, KALYAN Ot K44.9 DIAPHRAGMATIC HERNIA WITHOUT OBSTRUCTION 01/21/2016 CHITO PRIEST, KALYAN Ot T18.108A UNSP FOREIGN BODY IN ESOPHAGUS CAUSING O 01/22/2016 CHITO PRIEST, KALYAN Ot K21.0 01/22/2016 CHITO PRIEST, KALYAN Ot K22.2 01/22/2016 CHITO PRIEST, KALYAN Nicole K29.70 01/22/2016 CHITO PRIEST, KALYAN Nicole K44.9 01/22/2016 CHITO PRIEST, KALYAN Nicole T18.108A 03/09/2017 Ot 562.10 DIVERTICULOSIS COLON (W/O MENT OF HEMORR 03/09/2017 Ot 562.10 DIVERTICULOSIS COLON (W/O MENT OF HEMORR 03/09/2017 Ot V72.63 PRE- PROCEDURAL LABORATORY EXAMINATION 03/09/2017 Ot V74.8 SCREEN- BACTERIAL DIS NEC 03/09/2017 JOSELITO KANDY RADER Ot 715.36 LOC OSTEOARTH NOS-L/LEG 03/09/2017 JOSELITO DO KANDY Reinier Ot V72.63 PRE-PROCEDURAL LABORATORY EXAMINATION 03/09/2017 JOSELITO DO KANDY F Ot V72.81 SPTA-RNA-SYHHXCZZV CARDIOVASCULAR 03/09/2017 KANDY YEE DO Ot V72.83 EXAM PRE-OPERATIVE NEC 03/09/2017 JOSELITO DO KANDY Reinier Ot V72.84 EXAM PRE-OPERATIVE NOS 03/09/2017 JOSELITO KANDY RADER Ot V74.8 SCREEN-BACTERIAL DIS NEC 03/09/2017 KANDY YEE DO Ot 715.36 LOC OSTEOARTH NOS-L/LEG 03/09/2017 KANDY YEE DO Ot 791.9 ABN URINE FINDINGS NEC 03/09/2017 JOSELITO DO KANDY Reinier Ot V72.63 PRE-PROCEDURAL LABORATORY EXAMINATION 03/09/2017 KANDY YEE DO Ot V74.8 SCREEN-BACTERIAL DIS NEC 03/09/2017 KANDY YEE DO Ot V43.65 KNEE JOINT REPLACEMENT STATUS 03/09/2017 KANDY YEE DO Ot V58.61 ANTICOAGULANTS,LT,CURRENT USE 03/09/2017 KANDY YEE DO Ot V58.83 ENCOUNTER FOR THERAPEUTIC DRUG MONITORIN 03/10/2017 AIDAN GUO MD Ot E78.2 MIXED HYPERLIPIDEMIA 03/10/2017 AIDAN GUO MD Ot I08.1 RHEUMATIC DISORDERS OF BOTH MITRAL AND T 03/10/2017 AIDAN GUO MD Ot K21.9 GASTRO-ESOPHAGEAL REFLUX DISEASE WITHOUT 03/10/2017 AIDAN GUO MD Ot R07.9 CHEST PAIN, UNSPECIFIED 03/30/2017 AIDAN GUO MD Ot E78.2 MIXED HYPERLIPIDEMIA 03/30/2017 AIDAN GUO MD Ot I08.1 RHEUMATIC DISORDERS OF BOTH MITRAL AND T 03/30/2017 AIDAN GUO MD Ot K21.9 GASTRO-ESOPHAGEAL REFLUX DISEASE WITHOUT 03/30/2017 AIDAN GUO MD Ot R07.9 CHEST PAIN, UNSPECIFIED 04/12/2017 AIDAN GUO MD Ot E78.2 MIXED HYPERLIPIDEMIA 04/12/2017 AIDAN GUO MD Ot I08.1 RHEUMATIC DISORDERS OF BOTH MITRAL AND T 04/12/2017 AIDAN GUO MD Ot K21.9 GASTRO-ESOPHAGEAL REFLUX DISEASE WITHOUT 04/12/2017 AIDAN GUO MD Ot R07.9 CHEST PAIN, UNSPECIFIED 08/31/2017 KARLENE HOLMAN APRN Ot E78.00 PURE HYPERCHOLESTEROLEMIA, UNSPECIFIED 08/31/2017 KARLENE HOLMAN APRN Ot I47.1 SUPRAVENTRICULAR TACHYCARDIA 08/31/2017 KARLENE HOLMAN APRN Ot K21.9 GASTRO-ESOPHAGEAL REFLUX DISEASE WITHOUT 08/31/2017 KARLENE HOLMAN APRN Ot M19.90 UNSPECIFIED OSTEOARTHRITIS, UNSPECIFIED 08/31/2017 KARLENE HOLMAN APRN Ot R00.2 PALPITATIONS 08/31/2017 KARLENE HOLMAN APRN Ot Z80.8 FAMILY HISTORY OF MALIGNANT NEOPLASM OF 08/31/2017 KARLENE HOLMAN APRN Ot Z82.49 FAMILY HX OF ISCHEM HEART DIS AND OTH DI 08/31/2017 KARLENE HOLMAN APRN Ot Z87.59 PERSONAL HISTORY OF COMP OF PREG, CHLDBR 09/12/2017 RYLEY HARVEY DO Ot E86.0 DEHYDRATION 09/12/2017 RYLEY HARVEY DO Ot I47.1 SUPRAVENTRICULAR TACHYCARDIA 09/20/2017 AIDAN GUO MD Ot E78.2 MIXED HYPERLIPIDEMIA 09/20/2017 AIDAN GUO MD Ot I25.10 ATHSCL HEART DISEASE OF [place] CORONARY 09/20/2017 AIDAN GUO MD Ot I65.23 OCCLUSION AND STENOSIS OF BILATERAL [place] 09/20/2017 AIDAN GUO MD Ot K21.9 GASTRO-ESOPHAGEAL REFLUX DISEASE WITHOUT 09/20/2017 AIDAN GUO MD Ot R07.89 OTHER CHEST PAIN 09/20/2017 AIDAN GUO MD Ot R94.39 ABNORMAL RESULT OF OTHER CARDIOVASCULAR 09/20/2017 AIDAN GUO MD Ot Z79.82 SENIOR CARE (CURRENT) USE OF ASPIRIN 09/20/2017 AIDAN GUO MD Ot 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 09/20/2017 AIDAN GUO MD Ot Z96.652 PRESENCE OF LEFT ARTIFICIAL KNEE JOINT 09/25/2017 AIDAN GUO MD Ot E78.2 MIXED HYPERLIPIDEMIA 09/25/2017 AIDAN GUO MD Ot I25.10 ATHSCL HEART DISEASE OF [place] CORONARY 09/25/2017 AIDAN GUO MD Ot I65.23 OCCLUSION AND STENOSIS OF BILATERAL [place] 09/25/2017 AIDAN GUO MD Ot K21.9 GASTRO-ESOPHAGEAL REFLUX DISEASE WITHOUT 09/25/2017 AIDAN GUO MD Ot R07.89 OTHER CHEST PAIN 09/25/2017 AIDAN GUO MD Ot R94.39 ABNORMAL RESULT OF OTHER CARDIOVASCULAR 09/25/2017 AIDAN GUO MD Ot Z79.82 SENIOR CARE (CURRENT) USE OF ASPIRIN 09/25/2017 AIDAN GUO MD Ot 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 09/25/2017 AIDAN GUO MD Ot Z96.652 PRESENCE OF LEFT ARTIFICIAL KNEE JOINT 10/03/2017 RYLEY HARVEY DO Ot E86.0 DEHYDRATION 10/03/2017 RYLEY HARVEY DO Ot I47.1 SUPRAVENTRICULAR TACHYCARDIA 10/10/2017 RYLEY HARVEY DO Ot E86.0 DEHYDRATION 10/10/2017 RYLEY HARVEY DO Ot I47.1 SUPRAVENTRICULAR TACHYCARDIA 10/20/2017 AIDAN GUO MD, Ot E78.2 MIXED HYPERLIPIDEMIA 10/20/2017 AIDAN GUO MD, Ot I25.10 ATHSCL HEART DISEASE OF [place] CORONARY 10/20/2017 AIDAN GUO MD, Ot I65.23 OCCLUSION AND STENOSIS OF BILATERAL [place] 10/20/2017 AIDAN GUO MD, Ot K21.9 GASTRO-ESOPHAGEAL REFLUX DISEASE WITHOUT 10/20/2017 AIDAN GUO MD Ot R07.89 OTHER CHEST PAIN 10/20/2017 AIDAN GUO MD, Ot R94.39 ABNORMAL RESULT OF OTHER CARDIOVASCULAR 10/20/2017 AIDAN GUO MD, Ot 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 10/20/2017 AIDAN GUO MD, Ot 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 10/20/2017 AIDAN GUO MD, Ot Z96.652 PRESENCE OF LEFT ARTIFICIAL KNEE JOINT 06/25/2018 KEN ALANIZ DO Ot E78.00 PURE HYPERCHOLESTEROLEMIA, UNSPECIFIED 06/25/2018 KEN ALANIZ DO Ot I47.1 SUPRAVENTRICULAR TACHYCARDIA 06/25/2018 KEN ALANIZ DO, Ot K21.9 GASTRO-ESOPHAGEAL REFLUX DISEASE WITHOUT 06/25/2018 KEN ALANIZ DO Ot R00.0 TACHYCARDIA, UNSPECIFIED 06/25/2018 KEN ALANIZ DO Ot Z79.82 SENIOR CARE (CURRENT) USE OF ASPIRIN 06/25/2018 KEN ALANIZ DO Ot Z80.8 FAMILY HISTORY OF MALIGNANT NEOPLASM OF 06/25/2018 KEN ALANIZ DO Ot Z82.49 FAMILY HX OF ISCHEM HEART DIS AND OTH DI 06/25/2018 KEN ALANIZ DO, Ot Z87.19 PERSONAL HISTORY OF OTHER DISEASES OF TH 06/25/2018 KEN ALANIZ DO Ot Z87.448 PERSONAL HISTORY OF OTHER DISEASES OF UR 06/25/2018 KEN ALANIZ DO Ot Z90.49 ACQUIRED ABSENCE OF OTHER SPECIFIED PART 06/25/2018 KEN ALANIZ DO Ot Z96.653 PRESENCE OF ARTIFICIAL KNEE JOINT, BILAT 06/25/2018 KEN ALANIZ DO Ot Z98.890 OTHER SPECIFIED POSTPROCEDURAL STATES 06/25/2018 KANDY YEE DO Ot 715.36 LOC OSTEOARTH NOS-L/LEG 06/25/2018 KANDY YEE DO Ot V72.63 PRE-PROCEDURAL LABORATORY EXAMINATION 06/25/2018 KANDY YEE DO Ot V72.81 BZKA-THN-NVIWAIBPO CARDIOVASCULAR 06/25/2018 KANDY YEE DO Ot V72.83 EXAM PRE-OPERATIVE NEC 06/25/2018 JOSELITO RADER KANDY Hills Ot V72.84 EXAM PRE-OPERATIVE NOS 06/25/2018 KANDY YEE DO Ot V74.8 SCREEN-BACTERIAL DIS NEC 06/25/2018 KANDY YEE DO Ot 715.36 LOC OSTEOARTH NOS-L/LEG 06/25/2018 KANDY YEE DO Ot 791.9 ABN URINE FINDINGS NEC 06/25/2018 KANDY YEE DO Ot V72.63 PRE-PROCEDURAL LABORATORY EXAMINATION 06/25/2018 KANDY YEE DO Ot V74.8 SCREEN-BACTERIAL DIS NEC 06/25/2018 KANDY YEE DO Ot V43.65 KNEE JOINT REPLACEMENT STATUS 06/25/2018 KANDY YEE DO Ot V58.61 ANTICOAGULANTS,LT,CURRENT USE 06/25/2018 KANDY YEE DO Ot V58.83 ENCOUNTER FOR THERAPEUTIC DRUG MONITORIN 06/25/2018 AIDAN GUO MD Ot E78.2 MIXED HYPERLIPIDEMIA 06/25/2018 AIDAN GUO MD Ot I08.1 RHEUMATIC DISORDERS OF BOTH [place]RAL AND T 06/25/2018 AIDAN GUO MD Ot K21.9 GASTRO-ESOPHAGEAL REFLUX DISEASE WITHOUT 06/25/2018 AIDAN GUO MD Ot R07.9 CHEST PAIN, UNSPECIFIED 06/25/2018 RYLEY HARVEY DO Ot E86.0 DEHYDRATION 06/25/2018 RYLEY HARVEY DO Ot I47.1 SUPRAVENTRICULAR TACHYCARDIA 06/27/2018 KEN ALANIZ DO Ot E78.00 PURE HYPERCHOLESTEROLEMIA, UNSPECIFIED 06/27/2018 KEN ALANIZ DO Ot I47.1 SUPRAVENTRICULAR TACHYCARDIA 06/27/2018 KEN ALANIZ DO Ot K21.9 GASTRO-ESOPHAGEAL REFLUX DISEASE WITHOUT 06/27/2018 KEN ALANIZ DO Ot R00.0 TACHYCARDIA, UNSPECIFIED 06/27/2018 KEN ALANIZ DO Ot Z79.82 SENIOR CARE (CURRENT) USE OF ASPIRIN 06/27/2018 KEN ALANIZ DO Ot Z80.8 FAMILY HISTORY OF MALIGNANT NEOPLASM OF 06/27/2018 KEN ALANIZ DO Ot Z82.49 FAMILY HX OF ISCHEM HEART DIS AND OTH DI 06/27/2018 KEN ALANIZ DO Ot Z87.19 PERSONAL HISTORY OF OTHER DISEASES OF TH 06/27/2018 KEN ALANIZ DO Ot Z87.448 PERSONAL HISTORY OF OTHER DISEASES OF UR 06/27/2018 KEN ALANIZ DO Ot Z90.49 ACQUIRED ABSENCE OF OTHER SPECIFIED PART 06/27/2018 KEN ALANIZ DO Ot Z96.653 PRESENCE OF ARTIFICIAL KNEE JOINT, BILAT 06/27/2018 KEN ALANIZ DO Ot Z98.890 OTHER SPECIFIED POSTPROCEDURAL STATES Procedures Code Description Performed By Performed On 81.54 TOTAL KNEE REPLACEMENT 03/04/2014 81.54 TOTAL KNEE REPLACEMENT 04/29/2014 Results Test Result Range Complete blood count (CBC) with automated white blood cell (WBC) differential - 08/31/17 16:00 Blood leukocytes automated count (number/volume) 7.5 10*3/uL 4.3-11.0 Blood erythrocytes automated count (number/volume) 4.99 10*6/uL 4.35-5.85 Venous blood hemoglobin measurement (mass/volume) 15.3 g/dL 11.5-16.0 Blood hematocrit (volume fraction) 45 % 35-52 Automated erythrocyte mean corpuscular volume 90 [foz_us] 80-99 Automated erythrocyte mean corpuscular hemoglobin (mass per erythrocyte) 31 pg 25-34 Automated erythrocyte mean corpuscular hemoglobin concentration measurement ( mass/volume) 34 g/dL 32-36 Automated erythrocyte distribution width ratio 13.2 % 10.0-14.5 Automated blood platelet count (count/volume) 640 10*3/uL 130-400 Automated blood platelet mean volume measurement 10.5 [foz_us] 7.4-10.4 Automated blood neutrophils/100 leukocytes 59 % 42-75 Automated blood lymphocytes/100 leukocytes 27 % 12-44 Blood monocytes/100 leukocytes 11 % 0-12 Automated blood eosinophils/100 leukocytes 2 % 0-10 Automated blood basophils/100 leukocytes 1 % 0-10 Blood neutrophils automated count (number/volume) 4.5 10*3 1.8-7.8 Blood lymphocytes automated count (number/volume) 2.0 10*3 1.0-4.0 Blood monocytes automated count (number/volume) 0.8 10*3 0.0-1.0 Automated eosinophil count 0.1 10*3/uL 0.0-0.3 Automated blood basophil count (count/volume) 0.1 10*3/uL 0.0-0.1 PT panel in platelet poor plasma by coagulation assay - 08/31/17 16:00 Prothrombin time (PT) in platelet poor plasma by coagulation assay 14.6 s 12.2-14.7 INR in platelet poor plasma or blood by coagulation assay 1.1 0.8-1.4 Activated partial thromboplastin time (aPTT) in platelet poor plasma bycoagulation assay - 08/31/17 16:00 Activated partial thromboplastin time (aPTT) in platelet poor plasma bycoagulation assay 29 s 24-35 Fibrin D-dimer FEU measurement in platelet poor plasma (mass/volume) - 16:00 Fibrin D-dimer FEU measurement in platelet poor plasma (mass/volume) 0.37 ug/mL 0.00-0.49 Comprehensive metabolic panel - 08/31/17 16:00 Serum or plasma sodium measurement (moles/volume) 140 mmol/L 135-145 Serum or plasma potassium measurement (moles/volume) 3.8 mmol/L 3.6-5.0 Serum or plasma chloride measurement (moles/volume) 107 mmol/L 98-107 Carbon dioxide 20 mmol/L 21-32 Serum or plasma anion gap determination (moles/volume) 13 mmol/L 5-14 Serum or plasma urea nitrogen measurement (mass/volume) 15 mg/dL 7-18 Serum or plasma creatinine measurement (mass/volume) 1.81 mg/dL 0.60-1.30 Serum or plasma urea nitrogen/creatinine mass ratio 8 NRG Serum or plasma creatinine measurement with calculation of estimated glomerular filtration rate 28 NRG Serum or plasma glucose measurement (mass/volume) 111 mg/dL 70-105 Serum or plasma calcium measurement (mass/volume) 8.8 mg/dL 8.5-10.1 Serum or plasma total bilirubin measurement (mass/volume) 0.5 mg/dL 0.1-1.0 Serum or plasma alkaline phosphatase measurement (enzymatic activity/volume) 101 U/L 40-136 Serum or plasma aspartate aminotransferase measurement (enzymatic activity/ volume) 45 U/L 5-34 Serum or plasma alanine aminotransferase measurement (enzymatic activity/volume ) 51 U/L 0-55 Serum or plasma protein measurement (mass/volume) 7.1 g/dL 6.4-8.2 Serum or plasma albumin measurement (mass/volume) 3.8 g/dL 3.2-4.5 Magnesium - 08/31/17 16:00 Magnesium 1.9 mg/dL 1.8-2.4 Serum or plasma troponin i.cardiac measurement (mass/volume) - 08/31/17 16:00 Serum or plasma troponin i.cardiac measurement (mass/volume) < ng/ mL <0.30 THYROID STIMULATING HORMONE - 08/31/17 16:00 THYROID STIMULATING HORMONE 0.75 u[iU]/mL 0.35-4.94 Myoglobin, serum - 08/31/17 16:00 Myoglobin, serum 93.2 ng/mL 10.0-92.0 Serum or plasma troponin i.cardiac measurement (mass/volume) - 08/31/17 18:20 Serum or plasma troponin i.cardiac measurement (mass/volume) < ng/ mL <0.30 Myoglobin, serum - 08/31/17 18:20 Myoglobin, serum 66.0 ng/mL 10.0-92.0 Whole blood basic metabolic panel - 09/11/17 08:18 Serum or plasma sodium measurement (moles/volume) 141 mmol/L 135-145 Serum or plasma potassium measurement (moles/volume) 3.9 mmol/L 3.6-5.0 Serum or plasma chloride measurement (moles/volume) 107 mmol/L 98-107 Carbon dioxide 24 mmol/L 21-32 Serum or plasma anion gap determination (moles/volume) 10 mmol/L 5-14 Serum or plasma urea nitrogen measurement (mass/volume) 15 mg/dL 7-18 Serum or plasma creatinine measurement (mass/volume) 0.82 mg/dL 0.60-1.30 Serum or plasma urea nitrogen/creatinine mass ratio 18 NRG Serum or plasma creatinine measurement with calculation of estimated glomerular filtration rate > NRG Serum or plasma glucose measurement (mass/volume) 101 mg/dL 70-105 Serum or plasma calcium measurement (mass/volume) 8.8 mg/dL 8.5-10.1 Complete urinalysis with reflex to culture - 09/20/17 11:39 Urine color determination YELLOW NRG Urine clarity determination CLEAR NRG Urine pH measurement by test strip 6 5-9 Specific gravity of urine by test strip 1.015 1.016- 1.022 Urine protein assay by test strip, semi-quantitative NEGATIVE NEGATIVE Urine glucose detection by automated test strip NEGATIVE NEGATIVE Erythrocytes detection in urine sediment by light microscopy 1+ NEGATIVE Urine ketones detection by automated test strip NEGATIVE NEGATIVE Urine nitrite detection by test strip NEGATIVE NEGATIVE Urine total bilirubin detection by test strip NEGATIVE NEGATIVE Urine urobilinogen measurement by automated test strip (mass/volume) NORMAL NORMAL Urine leukocyte esterase detection by dipstick 2+ NEGATIVE Automated urine sediment erythrocyte count by microscopy (number/high power field) NONE NRG Automated urine sediment leukocyte count by microscopy (number/high power field ) [HPF] NRG Bacteria detection in urine sediment by light microscopy TRACE NRG Squamous epithelial cells detection in urine sediment by light microscopy 5-10 NRG Crystals detection in urine sediment by light microscopy NONE NRG Casts detection in urine sediment by light microscopy NONE NRG Mucus detection in urine sediment by light microscopy NEGATIVE NRG Complete urinalysis with reflex to culture YES NRG Bacterial urine culture - 09/20/17 11:39 URINE CULTURE RESULTS <10,000/ML NRG Automated blood complete blood count (hemogram) panel - 09/20/17 11:45 Blood leukocytes automated count (number/volume) 6.4 10*3/uL 4.3-11.0 Blood erythrocytes automated count (number/volume) 4.87 10*6/uL 4.35-5.85 Venous blood hemoglobin measurement (mass/volume) 15.1 g/dL 11.5-16.0 Blood hematocrit (volume fraction) 44 % 35-52 Automated erythrocyte mean corpuscular volume 90 [foz_us] 80-99 Automated erythrocyte mean corpuscular hemoglobin (mass per erythrocyte) 31 pg 25-34 Automated erythrocyte mean corpuscular hemoglobin concentration measurement ( mass/volume) 35 g/dL 32-36 Automated erythrocyte distribution width ratio 13.0 % 10.0-14.5 Automated blood platelet count (count/volume) 555 10*3/uL 130-400 Automated blood platelet mean volume measurement 10.0 [foz_us] 7.4-10.4 Comprehensive metabolic panel - 09/20/17 11:45 Serum or plasma sodium measurement (moles/volume) 142 mmol/L 135-145 Serum or plasma potassium measurement (moles/volume) 4.0 mmol/L 3.6-5.0 Serum or plasma chloride measurement (moles/volume) 107 mmol/L 98-107 Carbon dioxide 24 mmol/L 21-32 Serum or plasma anion gap determination (moles/volume) 11 mmol/L 5-14 Serum or plasma urea nitrogen measurement (mass/volume) 15 mg/dL 7-18 Serum or plasma creatinine measurement (mass/volume) 0.94 mg/dL 0.60-1.30 Serum or plasma urea nitrogen/creatinine mass ratio 16 NRG Serum or plasma creatinine measurement with calculation of estimated glomerular filtration rate 59 NRG Serum or plasma glucose measurement (mass/volume) 97 mg/dL 70-105 Serum or plasma calcium measurement (mass/volume) 8.9 mg/dL 8.5-10.1 Serum or plasma total bilirubin measurement (mass/volume) 0.8 mg/dL 0.1-1.0 Serum or plasma alkaline phosphatase measurement (enzymatic activity/volume) 92 U/L 40-136 Serum or plasma aspartate aminotransferase measurement (enzymatic activity/ volume) 24 U/L 5-34 Serum or plasma alanine aminotransferase measurement (enzymatic activity/volume ) 26 U/L 0-55 Serum or plasma protein measurement (mass/volume) 7.6 g/dL 6.4-8.2 Serum or plasma albumin measurement (mass/volume) 4.2 g/dL 3.2-4.5 Lipid 1996 panel - 09/20/17 11:45 Serum or plasma triglyceride measurement (mass/volume) 72 mg/dL <150 Serum or plasma cholesterol measurement (mass/volume) 152 mg/dL < 200 Serum or plasma cholesterol in HDL measurement (mass/volume) 42 mg/ dL 40-60 Cholesterol in LDL [mass/volume] in serum or plasma by direct assay 92 mg/dL 1-129 Serum or plasma cholesterol in VLDL measurement (mass/volume) 14 mg/ dL 5-40 PT panel in platelet poor plasma by coagulation assay - 09/20/17 11:45 Prothrombin time (PT) in platelet poor plasma by coagulation assay 14.1 s 12.2-14.7 INR in platelet poor plasma or blood by coagulation assay 1.1 0.8-1.4 Activated partial thromboplastin time (aPTT) in platelet poor plasma bycoagulation assay - 09/20/17 11:45 Activated partial thromboplastin time (aPTT) in platelet poor plasma bycoagulation assay 31 s 24-35 Methicillin resistant Staphylococcus aureus (MRSA) screening culture - 11:45 Methicillin resistant Staphylococcus aureus (MRSA) screening culture NEG NRG Complete blood count (CBC) with automated white blood cell (WBC) differential - 06/25/18 19:35 Blood leukocytes automated count (number/volume) 9.8 10*3/uL 4.3-11.0 Blood erythrocytes automated count (number/volume) 4.83 10*6/uL 4.35-5.85 Venous blood hemoglobin measurement (mass/volume) 15.1 g/dL 11.5-16.0 Blood hematocrit (volume fraction) 43 % 35-52 Automated erythrocyte mean corpuscular volume 89 [foz_us] 80-99 Automated erythrocyte mean corpuscular hemoglobin (mass per erythrocyte) 31 pg 25-34 Automated erythrocyte mean corpuscular hemoglobin concentration measurement ( mass/volume) 35 g/dL 32-36 Automated erythrocyte distribution width ratio 13.6 % 10.0-14.5 Automated blood platelet count (count/volume) 718 10*3/uL 130-400 Automated blood platelet mean volume measurement 9.8 [foz_us] 7.4-10.4 Automated blood neutrophils/100 leukocytes 66 % 42-75 Automated blood lymphocytes/100 leukocytes 22 % 12-44 Blood monocytes/100 leukocytes 10 % 0-12 Automated blood eosinophils/100 leukocytes 2 % 0-10 Automated blood basophils/100 leukocytes 1 % 0-10 Blood neutrophils automated count (number/volume) 6.5 10*3 1.8-7.8 Blood lymphocytes automated count (number/volume) 2.1 10*3 1.0-4.0 Blood monocytes automated count (number/volume) 1.0 10*3 0.0-1.0 Automated eosinophil count 0.2 10*3/uL 0.0-0.3 Automated blood basophil count (count/volume) 0.1 10*3/uL 0.0-0.1 PT panel in platelet poor plasma by coagulation assay - 06/25/18 19:35 Prothrombin time (PT) in platelet poor plasma by coagulation assay 14.4 s 12.2-14.7 INR in platelet poor plasma or blood by coagulation assay 1.1 0.8-1.4 Activated partial thromboplastin time (aPTT) in platelet poor plasma bycoagulation assay - 06/25/18 19:35 Activated partial thromboplastin time (aPTT) in platelet poor plasma bycoagulation assay 33 s 24-35 Comprehensive metabolic panel - 06/25/18 19:35 Serum or plasma sodium measurement (moles/volume) 140 mmol/L 135-145 Serum or plasma potassium measurement (moles/volume) 3.7 mmol/L 3.6-5.0 Serum or plasma chloride measurement (moles/volume) 105 mmol/L 98-107 Carbon dioxide 19 mmol/L 21-32 Serum or plasma anion gap determination (moles/volume) 16 mmol/L 5-14 Serum or plasma urea nitrogen measurement (mass/volume) 17 mg/dL 7-18 Serum or plasma creatinine measurement (mass/volume) 1.33 mg/dL 0.60-1.30 Serum or plasma urea nitrogen/creatinine mass ratio 13 NRG Serum or plasma creatinine measurement with calculation of estimated glomerular filtration rate 40 NRG Serum or plasma glucose measurement (mass/volume) 147 mg/dL 70-105 Serum or plasma calcium measurement (mass/volume) 9.2 mg/dL 8.5-10.1 Serum or plasma total bilirubin measurement (mass/volume) 0.6 mg/dL 0.1-1.0 Serum or plasma alkaline phosphatase measurement (enzymatic activity/volume) 80 U/L 40-136 Serum or plasma aspartate aminotransferase measurement (enzymatic activity/ volume) 22 U/L 5-34 Serum or plasma alanine aminotransferase measurement (enzymatic activity/volume ) 26 U/L 0-55 Serum or plasma protein measurement (mass/volume) 6.7 g/dL 6.4-8.2 Serum or plasma albumin measurement (mass/volume) 4.0 g/dL 3.2-4.5 CALCIUM CORRECTED 9.2 mg/dL 8.5-10.1 Magnesium - 06/25/18 19:35 Magnesium 2.1 mg/dL 1.8-2.4 Serum or plasma creatine kinase measurement (enzymatic activity/volume) - 06/25 19:35 Serum or plasma creatine kinase measurement (enzymatic activity/volume) 60 U/L 29-168 Serum or plasma creatine kinase MB measurement (enzymatic activity/volume) - 19:35 Serum or plasma creatine kinase MB measurement (enzymatic activity/volume) 1.1 ng/mL <6.6 Serum or plasma troponin i.cardiac measurement (mass/volume) - 06/25/18 19:35 Serum or plasma troponin i.cardiac measurement (mass/volume) < ng/ mL <0.30 Myoglobin, serum - 06/25/18 19:35 Myoglobin, serum 70.1 ng/mL 10.0-92.0 Serum or plasma lithium measurement (moles/volume) - 06/25/18 19:35 BNP level 17.1 pg/mL <100.0 Serum or plasma thyrotropin measurement by detection limit <=0.05 miu/l (units/ volume) - 06/25/18 19:35 Serum or plasma thyrotropin measurement by detection limit <=0.05 miu/l (units/ volume) 1.24 u[iU]/mL 0.35-4.94 Encounters ACCT No. Visit Date/Time Discharge Status Pt. Type Provider Facility Loc./Unit Complaint [id number] 01/09/2012 10:12:00 01/09/2012 23:59:59 CLS Outpatient [id number] 06/25/2018 19:15:00 06/25/2018 21:30:00 DIS Emergency KEN ALANIZ DO [facility] ER SOB/CARDIAC ISSUES [id number] 09/20/2017 11:27:00 09/20/2017 17:15:00 DIS Outpatient AIDAN GUO MD [facility] CATH CP,CAD [id number] 09/11/2017 06:52:00 09/11/2017 23:59:59 CLS Outpatient RYLEY HARVEY DO [facility] CARD PSVT [id number] 09/05/2017 12:53:00 09/05/2017 23:59:59 CLS Preadmit RYLEY HARVEY DO [facility] RAD E86.0 [id number] 08/31/2017 15:51:00 08/31/2017 19:05:00 DIS Emergency KARLENE HOLMAN APRN [facility] ER HEART PROBLEMS;HEART RACING [id number] 03/09/2017 13:42:00 03/09/2017 23:59:59 CLS Outpatient AIDAN GUO MD [facility] CARD R07.9 CHEST PAIN [id number] 01/21/2016 14:26:00 01/21/2016 16:15:00 DIS Outpatient KALYAN DALE MD [facility] SDC FOREIGN BODY [id number] 04/29/2014 06:00:00 05/01/2014 11:30:00 DIS Inpatient JOSELITO RADER [place] [facility] SURGICAL LEFT KNEE DEGENERATIVE JOINT DISEASE [id number] 04/22/2014 10:05:00 04/22/2014 23:59:59 CLS Outpatient JOSELITO RADER [place] [facility] PREOP LEFT KNEE DEGNERATIVE JOINT DISEASE [id number] 03/13/2014 15:35:00 03/13/2014 23:59:59 CLS Outpatient KANDY YEE DO [place] [facility] HH TKR, ANTICOAG [place] [id number] 03/04/2014 08:55:00 03/06/2014 12:00:00 DIS Inpatient KANDY YEE DO [facility] SURGICAL RIGHT KNEE DEGENERATIVE JOINT DISEASE [id number] 02/26/2014 09:44:00 02/26/2014 23:59:59 CLS Outpatient KANDY YEE DO [facility] PREOP RIGHT KNEE DEGENERATIVE JOINT DISEASE [id number] 06/22/2012 08:30:00 Document Registration [id number] 05/07/2012 10:23:00 Document Registration [id number] 05/02/2012 10:05:00 Document Registration [id number] 03/02/2012 09:00:00 Document Registration
[2018-12-26 03:20] LABS: BASOPHILS # (AUTO) 0.1 10^3/uL (0.0-0.1); BASOPHILS % (AUTO) 1 % (0-10); EOSINOPHILS # (AUTO) 0.1 10^3/uL (0.0-0.3); EOSINOPHILS % (AUTO) 2 % (0-10); HEMATOCRIT 42 % (35-52); HEMOGLOBIN 14.6 G/DL (11.5-16.0); LYMPHOCYTES # (AUTO) 0.9 X 10^3 (1.0-4.0); LYMPHOCYTES % (AUTO) 16 % (12-44); MEAN CORPUSCULAR HEMOGLOBIN 31 PG (25-34); MEAN CORPUSCULAR HGB CONC 34 G/DL (32-36); MEAN CORPUSCULAR VOLUME 90 FL (80-99); MEAN PLATELET VOLUME 9.6 FL (7.4-10.4); MONOCYTES # (AUTO) 1.2 X 10^3 (0.0-1.0); MONOCYTES % (AUTO) 21 % (0-12); NEUTROPHILS # (AUTO) 3.6 X 10^3 (1.8-7.8); NEUTROPHILS % (AUTO) 61 % (42-75); PLATELET COUNT 571 10^3/uL (130-400); RED CELL DISTRIBUTION WIDTH 13.9 % (10.0-14.5); WHITE BLOOD COUNT 5.9 10^3/uL (4.3-11.0)
[2018-12-26 03:29] VITALS: BP_SYST 130; BP_SYST 135; BP_SYST 136; BP_DIAS 71; BP_DIAS 72; BP_DIAS 76
[2018-12-26 03:32] LABS: INR 1.1 (0.8-1.4); PROTHROMBIN TIME PATIENT 14.2 SEC (12.2-14.7)
[2018-12-26 03:44] LABS: BAND NEUTROPHILS 1 %; EOSINOPHILS % (MANUAL) 2 %; LYMPHOCYTES % (MANUAL) 8 %; MONOCYTES % (MANUAL) 16 %; NEUTROPHILS % (MANUAL) 73 %; RBC MORPH NORMAL
[2018-12-26 03:45] LABS: ALANINE AMINOTRANSFERASE 28 U/L (0-55); ALBUMIN 3.7 GM/DL (3.2-4.5); ALKALINE PHOSPHATASE 80 U/L (40-136); BILIRUBIN,TOTAL 0.6 MG/DL (0.1-1.0); BUN/CREATININE RATIO 14; CARBON DIOXIDE 23 MMOL/L (21-32); CHLORIDE 104 MMOL/L (98-107); CREATININE SERUM 0.99 MG/DL (0.60-1.30); GFR ESTIMATED 55; GLUCOSE 143 MG/DL (70-105); MAGNESIUM 1.9 MG/DL (1.8-2.4); POTASSIUM 3.6 MMOL/L (3.6-5.0); SODIUM 140 MMOL/L (135-145); TOTAL PROTEIN 6.5 GM/DL (6.4-8.2)
[2018-12-26 04:00] LABS: TSH (THYROID ANALYZER) 1.29 UIU/ML (0.35-4.94)
[2018-12-26 04:26] LABS: BILIRUBIN,URINE NEGATIVE (NEGATIVE); CLARITY,URINE CLEAR; COLOR,URINE YELLOW; GLUCOSE, URINE (UA) NEGATIVE (NEGATIVE); KETONES,URINE NEGATIVE (NEGATIVE); LEUKOCYTE ESTERASE ,URINE 3+ (NEGATIVE); NITRITE,URINE NEGATIVE (NEGATIVE); PH,URINE 6 (5-9); PROTEIN,URINE 1+ (NEGATIVE); UROBILINOGEN,URINE NORMAL (NORMAL)
[2018-12-26 04:39] LABS: RBC,URINE 0-2 /HPF
[2018-12-26 04:40] LABS: BACTERIA,URINE FEW /HPF
[2018-12-26] MEDS ORDERED: RX-OSELTAMIVIR 75 MG (TAMIFLU) BOX OF 10 PO STA (04:46)
[2018-12-26] MEDS ORDERED: BENZ100C18 PO (04:50)
[2018-12-26] MEDS ORDERED: CEFD300C3 PO (04:50)
--- NOTE | 2018-12-26 04:51 | ED General ---
General Chief Complaint: Dizziness/Syncope Stated Complaint: HEADACHE SYNCOPAL EPISODE/FALL Nursing Triage Note: AMBULATED TO ED 7 WITHOUT DIFFICULTY. A&O X4. MONDAY STARTED WITH A SINUS CARTER, TURNED INTO A DEEP COUGH (THAT HAS MADE HER STOMACH AND CHEST SORE), AND IS NOW HAVING CONGESTION. WOKE UP WITH THE CARTER AGAIN THIS AM. WENT TO THE BATHROOM BECAME SWEATY AND CLAMMY, CALLED FOR HER TO COME HELP HER, WHEN HE GOT TO HER IN THE HALLWAY SHE WAS ON THE FLOOR. DOES NOT CLAIM TO HAVE HIT HER HEAD. DOES NOT RECALL GOING TO THE FLOOR. REPORTS HAVING EPISODES OF PSVT. LAST ONE WAS A MONTH AGO. Nursing Sepsis Screen: No Definite Risk Source of Information: Patient Exam Limitations: No Limitations History of Present Illness Date Seen by Provider: Dec 26, 2018 Time Seen by Provider: 03:13 Initial Comments PT ARRIVES VIA POV FROM HOME PT STATES "I THINK I HAVE THE FLU" PT STATES SHE STARTED GETTING SICK ON MONDAY NIGHT--STARTED WITH A SINUS HEADACHE, THEN WITH NASAL CONGESTION AND NON-PRODUCTIVE COUGH COUGH IS VERY HARSH AND CHEST AND ABDOMINAL MUSCLES ARE SORE FROM COUGHING NO KNOWN FEVER WOKE UP WITH HEADACHE AGAIN THIS AM AT 0230, WENT TO BATHROOM AND GOT SWEATY/ CLAMMY, NAUSEATED AND PASSED OUT--WAS NOT WITNESSED BUT WAS HEARD BY , AND WAS BRIEF. NO COUGH WITH SYNCOPE NO INJURY NO INCONTINENCE NO CHEST PAIN NO SHORTNESS OF BREATH NO PALPITATIONS--HAS HISTORY OF PSVT, AND STATES SHE DID NOT HAVE THOSE SYMPTOMS AT ALL. STATES SHE HAS BEEN SLEEPING MORE HAS BEEN ABLE TO EAT AND DRINK BUT NOT MUCH USUAL, IS URINATING A NORMAL AMOUNT. 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 GUO Allergies and Home Medications Allergies Coded Allergies: No Known Drug Allergies (Unverified , 01/16/12) Home Medications Aspirin 81 Mg Tablet.dr, 81 MG PO DAILY, (Reported) Atorvastatin Calcium 10 Mg Tablet, 10 MG PO DAILY, (Reported) Benzonatate 100 Mg Capsule, 1-2 TAB PO TID Prescribed by: KEN ALANIZ on 12/26/18449 Cefdinir 300 Mg Capsule, 300 MG PO BID Prescribed by: KEN ALANIZ on 3/13/19 0450 Satanta 3 Polyunsat Fatty Acids 1,000 Mg Cap, 1,000 MG PO EVENING, (Reported) Satanta-3/Dha/Epa/Fish Oil 1 Each Capsule, 2,000 MG PO AM, (Reported) Pantoprazole Sodium 40 Mg Tablet.dr, 40 MG PO DAILY, (Reported) Patient Home Medication List Home Medication List Reviewed: Yes Review of Systems Review of Systems Constitutional: see HPI, diaphoresis, dizziness; No fever; malaise, weakness EENTM: see HPI, nose congestion Respiratory: see HPI, cough; No short of breath, No wheezing Cardiovascular: see HPI; No edema, No palpitations; syncope Gastrointestinal: No diarrhea; loss of appetite; No nausea, No vomiting Genitourinary: No decreased output Musculoskeletal: see HPI Skin: no symptoms reported Psychiatric/Neurological: See HPI Hematologic/Lymphatic: No Symptoms Reported Immunological/Allergic: no symptoms reported Past Uloqgyz-Bnpdcd-Brscnh Hx Patient Social History Alcohol Use: Rarely Uses Recreational Drug Use: No Smoking Status: Never a Smoker 2nd Hand Smoke Exposure: No Recent Foreign Travel: No Contact w/Someone Who Travel: No Recent Infectious Disease Expo: No Recent Hopitalizations: No Immunizations Up To Date Tetanus Booster (TDap): Unknown Date of Pneumonia Vaccine: Nov 23, 2015 Date of Influenza Vaccine: Sep 05, 2017 Seasonal Allergies Seasonal Allergies: Yes Past Medical History Surgeries: Yes ( X 3; BILATERAL TOTAL KNEE REPLACEMENTS; COLON RESECTION FOR OBSTRUCTION; OPEN CHOLECYSTECTOMY; CARDIAC CATH 09/2017-NO INTERVENTION) Abdominal, Bowel Surgery, Cardiac, Section, Gallbladder, Hysterectomy, Joint Replacement, Orthopedic Respiratory: No Cardiac: Yes (PSVT; NORMAL ECHO AND STRESS TEST 01/2018; NORMAL CARDIAC CATH ) High Cholesterol, Irregular Heartbeat Neurological: No : No 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, Menopausal Genitourinary: No Gastrointestinal: Yes (S/P COLON RESECTION FOR OBSTRUCTION; OPEN CHOLECYSTECTOMY) Gastroesophageal Reflux, Obstructive Bowel, Gall Bladder Disease Musculoskeletal: Yes (DJD) Arthritis Endocrine: No HEENT: No Cancer: No Psychosocial: No Integumentary: No Blood Disorders: No Adverse Reaction/Blood Tranf: No Family Medical History Cancer 19 MOTHER (LARYNX AND SPINE ) Family history: Cardiovascular disease 19 FATHER No Pertinent Family Hx Physical Exam Vital Signs Vital Signs - First Documented 12/26/18 03:12 Temp 98.8 Pulse 76 Resp 23 B/P (MAP) 130/70 (90) Pulse Ox 96 O2 Delivery Room Air Capillary Refill : Less Than 3 Seconds Height, Weight, BMI Height: 5'5.00" Weight: 160lbs. 0.0oz. 72.080321jl; 26.8 BMI Method:Stated General Appearance: No Apparent Distress, WD/WN HEENT: PERRL/EOMI, Normal ENT Inspection Neck: Full Range of Motion, Normal Inspection, Non Tender, Supple Respiratory: Normal Breath Sounds, No Accessory Muscle Use, No Respiratory Distress Cardiovascular: Regular Rate, Rhythm, No Edema, No JVD, No Murmur, Normal Peripheral Pulses Gastrointestinal: Normal Bowel Sounds, No Organomegaly, No Pulsatile Mass, Non Tender, Soft Back: Normal Inspection Extremity: Normal Capillary Refill, Normal Inspection, Normal Range of Motion, Non Tender, No Calf Tenderness, No Pedal Edema Neurologic/Psychiatric: Alert, Oriented x3, No Motor/Sensory Deficits, Normal 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, 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 as Tested Skin: Normal Color, Warm/Dry Progress/Results/Core Measures Suspected Sepsis Recent Fever Within 48 Hours: No Infection Criteria Present: None New/Unexplained Altered Menta: No Sepsis Screen: No Definite Risk SIRS Temperature:98.8 Pulse: 79 Respiratory Rate: 23 Laboratory Tests 12/26/18 03:11: White Blood Count 5.9 Blood Pressure 130 /76 Mean: 94 Laboratory Tests 12/26/18 03:11: Creatinine 0.99, INR Comment 1.1, Platelet Count 571H, Total Bilirubin 0.6 Results/Orders Lab Results Laboratory Tests Test 12/26/18 03:11 12/26/18 03:25 12/26/18 04:15 Range/Units White Blood Count 5.9 4.3-11.0 10^3/uL Red Blood Count 4.70 4.35-5.85 10^6/uL Hemoglobin 14.6 11.5-16.0 G/DL Hematocrit 42 35-52 % Mean Corpuscular Volume 90 80-99 FL Mean Corpuscular Hemoglobin 31 25-34 PG Mean Corpuscular Hemoglobin Concent 34 32-36 G/DL Red Cell Distribution Width 13.9 10.0-14.5 % Platelet Count 571 H 130-400 10^3/uL Mean Platelet Volume 9.6 7.4-10.4 FL Neutrophils (%) (Auto) 61 42-75 % Lymphocytes (%) (Auto) 16 12-44 % Monocytes (%) (Auto) 21 H 0-12 % Eosinophils (%) (Auto) 2 0-10 % Basophils (%) (Auto) 1 0-10 % Neutrophils # (Auto) 3.6 1.8-7.8 X 10^3 Lymphocytes # (Auto) 0.9 L 1.0-4.0 X 10^3 Monocytes # (Auto) 1.2 H 0.0-1.0 X 10^3 Eosinophils # (Auto) 0.1 0.0-0.3 10^3/uL Basophils # (Auto) 0.1 0.0-0.1 10^3/uL Neutrophils % (Manual) 73 % Lymphocytes % (Manual) 8 % Monocytes % (Manual) 16 % Eosinophils % (Manual) 2 % Band Neutrophils 1 % Blood Morphology Comment NORMAL Prothrombin Time 14.2 12.2-14.7 SEC INR Comment 1.1 0.8-1.4 Activated Partial Thromboplast Time 34 24-35 SEC Sodium Level 140 135-145 MMOL/L Potassium Level 3.6 3.6-5.0 MMOL/L Chloride Level 104 98-107 MMOL/L Carbon Dioxide Level 23 21-32 MMOL/L Anion Gap 13 5-14 MMOL/L Blood Urea Nitrogen 14 7-18 MG/DL Creatinine 0.99 0.60-1.30 MG/DL Estimat Glomerular Filtration Rate 55 BUN/Creatinine Ratio 14 Glucose Level 143 H 70-105 MG/DL Calcium Level 9.0 8.5-10.1 MG/DL Corrected Calcium 9.2 8.5-10.1 MG/DL Magnesium Level 1.9 1.8-2.4 MG/DL Total Bilirubin 0.6 0.1-1.0 MG/DL Aspartate Amino Transf (AST/SGOT) 33 5-34 U/L Alanine Aminotransferase (ALT/SGPT) 28 0-55 U/L Alkaline Phosphatase 80 40-136 U/L Troponin I < 0.028 <0.028 NG/ML B-Type Natriuretic Peptide 24.1 <100.0 PG/ML Total Protein 6.5 6.4-8.2 GM/DL Albumin 3.7 3.2-4.5 GM/DL TSH [place] Testing 1.29 0.35-4.94 UIU/ML Glucometer 129 H 70-110 MG/DL Urine Color YELLOW Urine Clarity CLEAR Urine pH 6 5-9 Urine Specific [place] 1.025 H 1.016-1.022 Urine Protein 1+ H NEGATIVE Urine Glucose (UA) NEGATIVE NEGATIVE Urine Ketones NEGATIVE NEGATIVE Urine Nitrite NEGATIVE NEGATIVE Urine Bilirubin NEGATIVE NEGATIVE Urine Urobilinogen NORMAL NORMAL MG/DL Urine Leukocyte Esterase 3+ H NEGATIVE Urine RBC (Auto) 2+ H NEGATIVE Urine RBC 0-2 /HPF Urine WBC 10-25 H /HPF Urine Squamous Epithelial Cells 5-10 /HPF Urine Crystals NONE /LPF Urine Bacteria FEW H /HPF Urine Casts PRESENT /LPF Urine Hyaline Casts 2-5 H /LPF Urine Mucus LARGE H /LPF Urine Culture Indicated YES Micro Results Microbiology 12/26/18 Influenza Types A,B Antigen (NAHOMY) - Final, Complete My Orders Orders - KEN ALANIZ DO Accucheck Stat ONCE (12/26/18 03:13) Saline Lock/Iv-Start (12/26/18 03:13) Ekg Tracing (12/26/18 03:13) O2 (12/26/18 03:13) Monitor-Rhythm Ecg Trace Only (12/26/18 03:13) Ct Head Wo-R/O Stroke (12/26/18 03:13) BNP (12/26/18 03:13) Cbc With Automated Diff (12/26/18 03:13) Comprehensive Metabolic Panel (12/26/18 03:13) Magnesium (12/26/18 03:13) Protime With Inr (12/26/18 03:13) Partial Thromboplastin Time (12/26/18 03:13) Thyroid Analyzer (12/26/18 03:13) Troponin I (12/26/18 03:13) Ua Culture If Indicated (12/26/18 03:13) Chest 1 View, Ap/Pa Only (12/26/18 03:13) Manual Differential (12/26/18 03:11) Influenza A And B Antigens (12/26/18 04:13) Urine Culture (12/26/18 04:15) Ceftriaxone For Iv Use (Rocephin For I (12/26/18 05:00) Rx-Oseltamivir Caps (Rx-Tamiflu Caps) (12/26/18 04:46) Medications Given in ED Current Medications Medications Dose Ordered Sig/Thu Route Start Time Stop Time Status Last Admin Dose Admin Ceftriaxone Sodium 1000 mg/ Sterile Water 10 ml @ 200 mls/hr ONCE ONCE IV 12/26/18 05:00 12/26/18 05:02 DC 12/26/18 04:52 200 MLS/HR Vital Signs/I&O 12/26/18 12/26/18 12/26/18 03:12 03:29 05:29 Temp 98.8 98.8 Pulse 76 70 75 75 79 Resp 23 18 B/P (MAP) 130/70 (90) 136/72 (93) 135/71 (92) 135/71 (92) 130/76 (94) Pulse Ox 96 97 O2 Delivery Room Air Room Air Capillary Refill : Less Than 3 Seconds Blood Pressure Mean: 94 Point of Care Testing Finger Stick Blood Glucose: 129 Progress Note : Progress Note UNEVENTFUL ER STAY PT STATES SHE FEELS MUCH BETTER ECG Initial ECG Impression Date: Dec 26, 2018 Initial ECG Impression Time: 03:27 Initial ECG Rate: 77 Initial ECG Rhythm: Normal Sinus Diagnostic Imaging Comments CT HEAD--NO ACUTE PROCESS, PER [facility] VIA FAX @ 6326 CXR--NO ACUTE PROCESS, PENDING RADIOLOGIST REVIEW Reviewed: Reviewed by Me Departure Impression Primary Impression: Influenza A Additional Impressions: UTI (urinary tract infection) Episode of syncope Right maxillary sinusitis Disposition: 01 HOME, SELF-CARE Condition: Improved Departure-Patient Inst. Referrals: RYLEY HARVEY DO (PCP/Family) Primary Care Physician Patient Instructions: Flu, Adult (DC), Sinusitis, Adult (DC), Syncope (Fainting ) (DC), Urinary Tract Infection, Adult (DC) Add. Discharge Instructions: TAKE TAMIFLU TWICE A DAY FOR 5 DAYS LOTS OF CLEAR LIQUIDS--WATER, BROTH, JELLO, GATORADE TYLENOL 1 GRAM/ MOTRIN 800 MG 4 TIMES A DAY NEEDED FOR PAIN OR FEVER TAKE YOUR HOME COUGH SYRUP NEEDED OVER THE COUNTER FLONASE OR NASACORT NASAL SPRAY DAILY FOR SINUSES FOLLOW UP WITH YOUR DR IN 2-3 DAYS IF NO BETTER, RETURN TO ER IF WORSE All discharge instructions reviewed with patient and/or family. Voiced understanding. Scripts Cefdinir (Cefdinir) 300 Mg Capsule 300 MG PO BID for FOR INFECTION, #20 CAP Prov: KEN ALANIZ DO 12/26/18 Benzonatate (TESSALON PERLES) 100 Mg Capsule 1-2 TAB PO TID for Cough, #30 CAP Prov: KEN ALANIZ DO 12/26/18 KEN ALANIZ DO Dec 26, 2018 04:51
[2018-12-26] MEDS ORDERED: cefTRIAXone FOR IV USE 1,000 MG in WATER (STERILE) FOR INJECTION 10 ML IV ONE (05:00)
[2018-12-26 05:29] VITALS: BP 135/71
--- NOTE | 2018-12-26 08:14 | Diagnostic Imaging Report ---
PROCEDURE: CT head wok r/o stroke. TECHNIQUE: Multiple contiguous axial images were obtained through the brain without the use of intravenous contrast. INDICATION: Headache and syncope. No prior studies are available for comparison. The ventricles and sulci are within normal limits. No sulcal effacement, midline shift or hemorrhage is detected. Cisterns are patent. There is some fluid in the right maxillary sinus. Remaining sinuses are clear. IMPRESSION: 1. No acute intracranial process is identified. 2. Right maxillary sinusitis. Dictated by: Dictated on workstation # [id number]
--- NOTE | 2018-12-26 08:26 | Diagnostic Imaging Report ---
CHEST 1 VIEW, AP/PA ONLY Indication: Syncope Comparison: 06/25/2018 Findings: No focal airspace disease in the visualized lungs. Please note that the posterior lower lobes are poorly evaluated by portable radiography. No pleural effusion or pneumothorax. Normal cardiomediastinal silhouette. Impression: No acute cardiopulmonary process by portable radiography. Dictated by: Dictated on workstation # [id number]
== END 2018-12-26 05:29 | disposition home or self-care (01) ==
LOC: EDUNIT# 02:59 → ER 03:01
DX: J10.1 Influenza due to other identified influenza virus with other respiratory manifestations (principal); N39.0 Urinary tract infection, site not specified; R55 Syncope and collapse; J32.0 Chronic maxillary sinusitis; E78.00 Pure hypercholesterolemia, unspecified; K21.9 Gastro-esophageal reflux disease without esophagitis; Z82.49 Family history of ischemic heart disease and other diseases of the circulatory system; Z80.8 Family history of malignant neoplasm of other organs or systems; Z87.19 Personal history of other diseases of the digestive system; Z86.79 Personal history of other diseases of the circulatory system; Z79.82 Long term (current) use of aspirin; Z96.653 Presence of artificial knee joint, bilateral; Z90.49 Acquired absence of other specified parts of digestive tract; Z98.890 Other specified postprocedural states; Z90.710 Acquired absence of both cervix and uterus
CPT/HCPCS: 36415; 70450; 71045; 80053; 81000; 82962; 83735; 83880; 84443; 84484; 85007; 85027; 85610; 85730; 87088; 87804; 93005; 93041

== ENCOUNTER → 2019-03-21 | Outpatient (CLI) | payer MEDICARE, OTHER ==
[~2019-03-21] MED LIST changes: +BENZ100C18 PO; +CEFD300C3 PO; +METO-387 PO
--- NOTE | 2019-03-21 11:09 | Diagnostic Imaging Report ---
PROCEDURE: CT abdomen and pelvis without contrast. TECHNIQUE: Multiple contiguous axial images were obtained through the abdomen and pelvis without the use of intravenous contrast. Auto Exposure Controls were utilized during the CT exam to meet ALARA standards for radiation dose reduction. INDICATION: Diarrhea. Abdominal cramping. COMPARISON: 01/16/2012 FINDINGS: Included portions of the lung bases show small micronodule within the subpleural margins of lateral segment of the right middle lobe measuring approximately 3 mm (image 5, series 2). This is stable compared to 01/16/2012. Partially visualized subpleural micronodule is also noted more anteriorly and superiorly also within the right middle lobe and measures approximately 3-4 mm. Although only partially visualized, visualized portions of the micronodule are stable as well. Small hiatal hernia is also noted. CT ABDOMEN: Patient appears to be status post previous partial colectomy. There is dominant large diverticulum at the anastomotic site measuring approximately 2.4 cm in diameter. A few smaller scattered more proximal colonic diverticuli are also noted, but there is no CT evidence of acute diverticulitis. Normal appendix is identified. Small bowel loops are nondistended. The kidneys, adrenal glands, spleen, pancreas, and liver have an unremarkable noncontrast CT appearance. There is no loculated fluid collection, free fluid, nor free air within the abdomen. No abnormal mesenteric or retroperitoneal adenopathy is seen. There is moderate scattered calcified aortic atherosclerosis. Bony structures show no acute abnormalities. CT PELVIS: Urinary bladder is unopacified. No calculi are seen within the urinary bladder. There is no loculated fluid collection, free fluid, nor free air within the pelvis. No abnormal lymph nodes are seen. Osseous structures show no acute abnormalities. IMPRESSION: 1. No acute abnormalities are seen within the abdomen or pelvis. 2. Postsurgical changes of previous partial colectomy. Again, there is dominant diverticulum at the anastomotic site as well as a few smaller scattered colonic diverticuli. There is however no CT evidence of acute diverticulitis. 3. Small hiatal hernia. 4. Micronodules within the right middle lobe as described above. Dictated by: Dictated on workstation # [id number]
== END ==
LOC: RAD 10:28
PROVIDERS: ATTEND Internal Medicine
DX: K57.30 Diverticulosis of large intestine without perforation or abscess without bleeding (principal); K44.9 Diaphragmatic hernia without obstruction or gangrene; I70.0 Atherosclerosis of aorta; R91.8 Other nonspecific abnormal finding of lung field; Z90.49 Acquired absence of other specified parts of digestive tract
CPT/HCPCS: 74176

== ENCOUNTER 2019-03-26 15:21 | Outpatient (RCR) | payer MEDICARE, OTHER ==
[~2019-03-26 15:21] MED LIST changes: -METO-387 PO
[2019-03-28] MEDS ORDERED: METO-387 PO (14:08)
== END 2019-06-24 | disposition home or self-care (01) ==
LOC: LAB 15:21
PROVIDERS: ATTEND Surgery
DX: R19.7 Diarrhea, unspecified (principal); K21.9 Gastro-esophageal reflux disease without esophagitis; Z87.19 Personal history of other diseases of the digestive system

== ENCOUNTER 2019-03-28 05:41 | Outpatient (CLI) | payer MEDICARE, OTHER ==
[~2019-03-28] VITALS: Ht 165.1 cm; Wt 72.6 kg
[2019-03-28] MEDS ORDERED: METO-387 PO (14:08)
== END 2019-03-28 14:10 ==
LOC: PREOP 05:41
PROVIDERS: ATTEND Surgery
DX: Z01.818 Encounter for other preprocedural examination (principal)

== ENCOUNTER 2019-04-01 09:14 | Day surgery (SDC) | payer MEDICARE, OTHER ==
[~2019-04-01] VITALS: Ht 165.1 cm; Wt 72.6 kg
[~2019-04-01 09:14] MED LIST changes: +LACTATED RINGERS 1,000 ML IV ONE; +METO-387 PO
[2019-04-01] MEDS ORDERED: LACTATED RINGERS 1,000 ML IV STA (09:21)
[2019-04-01] MEDS ORDERED: HURRICAINE EXT TUBE (BENZOCAINE) XX PRN (09:30)
[2019-04-01 09:39] VITALS: BP 111/80
[2019-04-01] MEDS ORDERED: PROPOFOL INJECTION 50 ML IV ONE (09:52)
[2019-04-01] MEDS ORDERED: MIDAZOLAM 2 MG/2 ML (VERSED) VIAL ONE (09:52)
--- NOTE | 2019-04-01 09:52 | Progress Note-Pre Operative ---
Pre-Operative Progress Note H&P Reviewed The H&P was reviewed, patient examined and no changes noted. Time Seen by Provider: 09:50 Date H&P Reviewed: Apr 01, 2019 Time H&P Reviewed: 09:51 Pre-Operative Diagnosis: Chronic Gastritis, Hx of colon polyps, Diverticulitis, Diarrhea JAMESON MOSES DO Apr 01, 2019 09:52
--- NOTE | 2019-04-01 10:43 | Progress Note-Post Operative ---
Post-Operative Progess Note Surgeon (s)/Health Information Internship (s) Surgeon JAMESON MOSES DO Health Information Internship: none Pre-Operative Diagnosis Chronic Gastritis, Hx of colon polyps, Diverticulitis, Diarrhea Post-Operative Diagnosis Gastritis Hiatal Hernia Diverticula Internal Hemorrhoids Procedure & Operative Findings Date of Procedure 04/01/19 Procedure Performed/Findings EGD with bx Colon Anesthesia Type IV sedation by DIRECTOR NEW PRODUCT Estimated Blood Loss Estimated blood loss (mL): scant Specimens/Packing Specimens Removed antral bx GE jxn bx JAMESON MOSES DO Apr 01, 2019 10:43
--- NOTE | 2019-04-01 10:46 | Endoscopy Discharge Instruct ---
Endo Procedure/Findings Findings 1.: Gastritis 2.: Hiatal Hernia 3.: Diverticulosis 4.: Internal Hemorrhoids Discharge Instructions - Activity: You might feel a little sleepy until tomorrow. This is due to the medicine you received to relax you. Until tomorrow, you should: NOT drive a car, operate machinery or power tools. NOT drink any alcoholic beverages. NOT make any important decisions or sign importortant papers. Do not return to work until tomorrow, unless otherwise instructed. Resume previous activities tomorrow. Diet: Start by taking liquids. If you tolerate liquids, advance to solid food. make an appointment for one week Instructions: 1.: Colonscopy in 10 years, EGD in 3 years Notify Physician - If you experience excessive bleeding, unusual abdominal pain, fever, or chest pain, contact your doctor immediately. Follow-Up: - I have received and understand the above instructions and will call my doctor if I have any further questions. Patient Signature Date Nurse Signature Other (Relationship) JAMESON MOSES DO Apr 01, 2019 10:46
[2019-04-01 11:05] VITALS: BP 109/74
[2019-04-01 11:35] VITALS: BP 112/66
--- NOTE | 2019-04-01 14:48 | Anesthesia-General Post-Op ---
MAC Patient Condition Mental Status/LOC: Same as Preop Cardiovascular: Satisfactory Nausea/Vomiting: Absent Respiratory: Satisfactory Pain: Controlled Complications: Absent Post Op Complications Complications None Follow Up Care/Instructions Patient Instructions None needed. Anesthesiology Discharge Order Discharge Order Patient is doing well, no complaints, stable vital signs, no apparent adverse anesthesia problems. No complications reported per nursing. ALETA SAUCEDO CRNA Apr 01, 2019 14:48
--- NOTE | 2019-04-01 20:59 | OPERATIVE REPORT ---
DATE OF SERVICE: 04/01/2019 PREOPERATIVE DIAGNOSES: 1. Chronic gastritis, history of colon polyps. 2. Diverticulitis. 3. Diarrhea. POSTOPERATIVE DIAGNOSES: 1. Gastritis, hiatal hernia, gastric polyps. 2. Diverticula. 3. Internal hemorrhoids. PROCEDURE: 1. EGD with biopsy. 2. Colonoscopy. SURGEON: Phil Sánchez DO. FIELD MECHANIC: None. ANESTHESIA: IV sedation by TECHNICAL SUPPORT INTERN. SPECIMEN: One biopsy from the antrum, one biopsy of the GE junction. BLOOD LOSS: Scant. FLUIDS: Per anesthesia. POSTOPERATIVE CONDITION: Stable. INDICATION FOR PROCEDURE: The patient is a 68-year-old female who has been having some chronic gastritis. She has a history of colon polyps and has not had a colonoscopy in over 5 years. She also has recently had some diverticulitis and she had some diarrhea. FINDINGS: The patient had some gastritis, large hiatal hernia. In the colon, she had a large amount of diverticula, but no inflammation. Also could see previous colon anastomosis and she had some internal hemorrhoids. PROCEDURE NOTE: After informed consent was obtained, the patient was brought to the endoscopy suite, placed in the bed in left lateral decubitus position. She was administered IV sedation by the TECHNICAL SUPPORT INTERN who monitored her vitals the entire time, heart rate, blood pressure, pulse ox and the scope was inserted down the mouth through the esophagus and into the stomach, pushed through into the duodenum. First and second portion of duodenum looked normal, took a picture. Pulled back into the antrum and there was some mild inflammation, did a biopsy here, retroflexed the scope, saw moderate hiatal hernia, took a picture of this and then noted some gastric polyps, took a picture of this, then pulled back into the GE junction, did a biopsy of the GE junction. Switched gloves and switched cameras and went down below to start the colonoscopy. Pushed all the way into 150 cm, able to get to the cecum, took a picture of appendiceal orifice, noted the ileocecal valve and then slowly withdrew the scope insufflating to look circumferentially at the archer looking at the cecum up the ascending colon to the hepatic flexure, then down the transverse colon, the splenic flexure, into the descending colon, through the descending colon and down to sigmoid colon or whatever was left after resection. She had some diverticula throughout the colon; including in the transverse and on the right side, found at the anastomosis, took a picture of this, looked good and then pulled into the rectum, retroflexed the rectal vault, saw some minimal internal hemorrhoids, took a picture of this and then removed the scope. The patient tolerated the procedure and she was recovered in the endoscopy suite. Job ID: [id number] DocumentID: [id number] Dictated Date: 04/01/2019 14:56:35 Social Work Nurse Date: 04/01/2019 20:58:02 Dictated By: DO DANA MATHEW
== END 2019-04-01 11:45 | disposition home or self-care (01) ==
LOC: ENDO 09:14
PROVIDERS: ATTEND Surgery
DX: Z12.11 Encounter for screening for malignant neoplasm of colon (principal); K29.50 Unspecified chronic gastritis without bleeding; K44.9 Diaphragmatic hernia without obstruction or gangrene; K31.7 Polyp of stomach and duodenum; K57.30 Diverticulosis of large intestine without perforation or abscess without bleeding; K21.9 Gastro-esophageal reflux disease without esophagitis; K64.8 Other hemorrhoids; I25.10 Atherosclerotic heart disease of native coronary artery without angina pectoris; E78.2 Mixed hyperlipidemia; I47.1 Supraventricular tachycardia; I65.23 Occlusion and stenosis of bilateral carotid arteries; Z96.653 Presence of artificial knee joint, bilateral; Z95.5 Presence of coronary angioplasty implant and graft; Z79.82 Long term (current) use of aspirin; Z79.899 Other long term (current) drug therapy; Z86.010 Personal history of colon polyps; Z87.19 Personal history of other diseases of the digestive system
CPT/HCPCS: 43239; G0105

== ENCOUNTER → 2019-10-23 | Outpatient (CLI) | payer MEDICARE, OTHER ==
[~2019-10-23] MED LIST changes: -LACTATED RINGERS 1,000 ML IV ONE
--- NOTE | 2019-10-23 14:21 | Diagnostic Imaging Report ---
INDICATION: Left breast pain. Patient denies a discrete palpable lump. COMPARISON: Correlation is made with prior mammogram from 04/29/2010. TECHNIQUE: 2-D and 3-D bilateral diagnostic mammography was performed. The current study was also evaluated with a Computer Aided Detection (CAD) system. 3-D tomosynthesis was also performed and reviewed. FINDINGS: Scattered fibroglandular densities are identified bilaterally. Overall parenchymal density is stable. No spiculated mass or malignant-appearing microcalcifications are seen. Benign nodular densities in the right breast are stable. Axillae are unremarkable. IMPRESSION: No mammographic features suspicious for malignancy are identified. ACR BI-RADS Category 2: Benign findings. Result letter will be mailed to the patient. Note: At least 10% of breast cancer is not imaged by mammography. Dictated by: Dictated on workstation # [id number]
== END ==
LOC: RAD 13:56
PROVIDERS: ATTEND Internal Medicine
DX: N63.20 Unspecified lump in the left breast, unspecified quadrant (principal)
CPT/HCPCS: 77066

== ENCOUNTER → 2021-01-19 | Outpatient (CLI) | payer MEDICARE, OTHER ==
[~2021-01-19] MED LIST changes: +ASPI-1238 PO; -ASPI-983 PO; -METO-387 PO; +MTP25TSR PO
[2021-01-19 09:44] LABS: ABSOLUTE RETIC # 83 10e9/uL (24-90); BASOPHILS # (AUTO) 0.1 10^3/uL (0.0-0.1); BASOPHILS % (AUTO) 2 % (0-10); EOSINOPHILS # (AUTO) 0.2 10^3/uL (0.0-0.3); EOSINOPHILS % (AUTO) 3 % (0-10); HEMATOCRIT 45 % (35-52); HEMOGLOBIN 14.7 g/dL (11.5-16.0); LYMPHOCYTES # (AUTO) 1.7 10^3/uL (1.0-4.0); LYMPHOCYTES % (AUTO) 28 % (12-44); MEAN CORPUSCULAR HEMOGLOBIN 30 pg (25-34); MEAN CORPUSCULAR HGB CONC 33 g/dL (32-36); MEAN CORPUSCULAR VOLUME 90 fL (80-99); MEAN PLATELET VOLUME 9.7 fL (9.0-12.2); MONOCYTES # (AUTO) 0.8 10^3/uL (0.0-1.0); MONOCYTES % (AUTO) 13 % (0-12); NEUTROPHILS # (AUTO) 3.3 10^3/uL (1.8-7.8); NEUTROPHILS % (AUTO) 55 % (42-75); PLATELET COUNT 703 10^3/uL (130-400); RETICULOCYTE % 1.67 % (0.50-2.40); WHITE BLOOD COUNT 6.1 10^3/uL (4.3-11.0)
[2021-01-19 10:17] LABS: LYMPHOCYTES % (MANUAL) 36 %; MONOCYTES % (MANUAL) 11 %; NEUTROPHILS % (MANUAL) 53 %
[2021-01-19 10:19] LABS: RBC MORPH NORMAL
--- NOTE | 2021-01-19 11:43 | Diagnostic Imaging Report ---
INDICATION: Postmenopausal state. COMPARISON: None available. FINDINGS: AP Spine L1-L4: [BMD (g/cm2): 0.826] [T-Score: -3.1] [Z-Score: -1.7] [BMD Previous: NA] [BMD % Change: NA] LT Hip Neck: [BMD (g/cm2): 0.824] [T-Score: -1.5] [Z-Score: 0.1] LT Hip Total: [BMD (g/cm2):0.853] [T-Score:-1.2] [Z-Score: 0.1] [BMD Previous: NA] [BMD % Change: NA] RT Hip Neck: [BMD (g/cm2):0.826] [T-Score:-1.5] [Z-Score:0.1] RT Hip Total: [BMD (g/cm2):0.854] [T-score:-1.2] [Z-Score:0.1] [BMD Previous:NA] [BMD % Change:NA] *Indicates significant change from prior examination based on 95% confidence level. World Health Organization criteria for BMD interpretation classify patients as Normal (T-score at or above -1.0), Osteopenic (T-score between -1.0 and -2.5) or Osteoporotic (T-score at or below -2.5). LIMITATIONS AND MODIFICATION: None. IMPRESSION: 1. Osteoporosis. 2. Baseline examination. 3. See below National Osteoporosis Foundation guidelines on when to potentially initiate pharmacologic therapy. Based on the National Osteoporosis Foundation Guidelines, pharmacologic treatment should be initiated in any of the following, unless clinical conditions suggest otherwise: * Any patient with prior fragility fracture of the hip or vertebrae. A spine fracture indicates 5X risk for subsequent spine fracture and 2X risk for subsequent hip fracture. * Osteoporosis (T-score <-2.5). * Postmenopausal women and men age 50 and older with low bone mass/osteopenia (T-score between -1.0 and -2.5) by DXA and 10-year major osteoporotic fracture greater than 20% or a 10-year probability of hip fracture greater than 3%. These fracture risks are supplied above in the FRAX score, if applicable. * Clinician judgement and/or patient preferences may indicate treatment for people with 10-year fracture probabilities above or below these levels. Dictated by: Dictated on workstation # [id number]
--- NOTE | 2021-01-19 12:20 | Diagnostic Imaging Report ---
INDICATION: Routine screening. COMPARISON: 10/23/2019. TECHNIQUE: 2D and 3D bilateral screening mammography was performed with CAD. FINDINGS: Scattered fibroglandular densities are identified bilaterally. The parenchymal pattern is stable. No mass is identified. No malignant appearing microcalcifications are seen. The axillae are unremarkable. IMPRESSION: No mammographic features suspicious for malignancy are identified. ACR BI-RADS Category 1: Negative. Result letter will be mailed to the patient. Note: At least 10% of breast cancer is not imaged by mammography. Dictated by: Dictated on workstation # [id number]
== END ==
LOC: RAD 08:52
PROVIDERS: ATTEND Family Medicine
DX: Z12.31 Encounter for screening mammogram for malignant neoplasm of breast (principal); M81.0 Age-related osteoporosis without current pathological fracture; D47.3 Essential (hemorrhagic) thrombocythemia; Z78.0 Asymptomatic menopausal state
CPT/HCPCS: 36415; 77063; 77067; 77080; 85007; 85027; 85045; 85055

== ENCOUNTER 2021-03-31 07:26 | Day surgery (SDC) | payer MEDICARE, OTHER ==
[~2021-03-31] VITALS: Ht 165.1 cm; Wt 74.5 kg
[2021-03-31] VITALS (10 sets, daily range): BP systolic 120–163; BP diastolic 61–84
[2021-03-31] MEDS ORDERED: NS IV 1000 ML 1,000 ML IV STA (08:03)
[2021-03-31] MEDS ORDERED: MIDAZOLAM 2 MG/2 ML (VERSED) VIAL IVP ONE (08:15)
[2021-03-31] MEDS ORDERED: LIDOCAINE 1% INJ 20 ML 20 ML VIAL INJ ONE (08:15)
[2021-03-31] MEDS ORDERED: fentaNYL INJ 100 MCG/2 ML AMP IVP ONE (08:15)
[2021-03-31 08:38] LABS: ABSOLUTE RETIC # 69 10e9/uL (24-90); BASOPHILS # (AUTO) 0.1 10^3/uL (0.0-0.1); BASOPHILS % (AUTO) 1 % (0-10); EOSINOPHILS # (AUTO) 0.2 10^3/uL (0.0-0.3); EOSINOPHILS % (AUTO) 3 % (0-10); HEMATOCRIT 46 % (35-52); HEMOGLOBIN 15.1 g/dL (11.5-16.0); LYMPHOCYTES # (AUTO) 1.4 10^3/uL (1.0-4.0); LYMPHOCYTES % (AUTO) 26 % (12-44); MEAN CORPUSCULAR HEMOGLOBIN 30 pg (25-34); MEAN CORPUSCULAR HGB CONC 33 g/dL (32-36); MEAN CORPUSCULAR VOLUME 91 fL (80-99); MEAN PLATELET VOLUME 9.9 fL (9.0-12.2); MONOCYTES # (AUTO) 0.7 10^3/uL (0.0-1.0); MONOCYTES % (AUTO) 13 % (0-12); NEUTROPHILS # (AUTO) 3.1 10^3/uL (1.8-7.8); NEUTROPHILS % (AUTO) 56 % (42-75); RETICULOCYTE % 1.37 % (0.50-2.40); WHITE BLOOD COUNT 5.5 10^3/uL (4.3-11.0)
[2021-03-31 08:58] LABS: INR 1.1 (0.8-1.4); PROTHROMBIN TIME PATIENT 14.4 SEC (12.2-14.7)
[2021-03-31 09:04] LABS: NEUTROPHILS % (MANUAL) 55 %
[2021-03-31 09:05] LABS: BASOPHILS % (MANUAL) 1 %; EOSINOPHILS % (MANUAL) 2 %; LYMPHOCYTES % (MANUAL) 30 %; MONOCYTES % (MANUAL) 11 %; RBC MORPH NORMAL; REACTIVE LYMPHOCYTES 1 %
[2021-03-31 09:06] LABS: PLATELET COUNT 702 10^3/uL (130-400)
--- NOTE | 2021-03-31 10:08 | Pre-Op Note & Conscious Sedat ---
Pre-Operative Progress Note H&P Reviewed The H&P was reviewed, patient examined and no changes noted. Date H&P Reviewed: Mar 31, 2021 Time H&P Reviewed: 08:00 Pre-Op Diagnosis: essential thrombocytopenia Conscious Sedation Pre-Proced Time 08:00 ASA Score 2 For ASA 3 and 4: Consider anesthesia and medical clearance. Also, for patients with a history of failed moderate sedation consider anesthesia. Airway Lungs Heart ASA score ASA 1: a normal healthy patient ASA 2: a patient with a mild systemic disease (mid diabetes, controlled hypertension, obesity ASA 3: a patient with a severe systemic disease that limits activity (angina, COPD, prior Myocardial infarction) ASA 4: a patient with an incapacitating disease that is a constant threat to life (CHF, renal failure) ASA 5: a moribund patient not expected to survive 24 hrs. (ruptured aneurysm) ASA 6: a declared brain- patient whose organs are being harvested. For emergent operations, add the letter E after the classification Mallampati Classification Grade 2 Sedation Plan Analgesia, Amnesia, Plan communicated to team members, Discussed options with patient/fam, Discussed risks with patient/fam The patient is an appropriate candidate to undergo the planned procedure, sedation, and anesthesia. The patient immediately re-assessed prior to indication. TEJINDER EID MD Mar 31, 2021 10:08
[2021-03-31] MEDS ORDERED: HYDROcodone/APAP 5 MG/325 MG (LORTAB) TAB PO PRN (10:15)
--- NOTE | 2021-03-31 10:19 | Diagnostic Imaging Report ---
Indication: Essential thrombocytopenia. Patient presents for CT-guided bone marrow aspiration and biopsy. Patient brought to the CT suite placed on table in the prone position. Axial imaging through the pelvis was performed to evaluate appropriate entry site. The procedure was performed utilizing conscious sedation with radiology nursing and constant patient monitoring. Patient was given a total of 50 mg of fentanyl intravenously. Total procedure time was 3 minutes. Low back was prepped and draped in usual sterile fashion. Small amount of 1% lidocaine was utilized for local anesthesia. Bone marrow needle was advanced and placed with its tip along the posterior cortex of the right iliac bone. The needle was advanced through the cortex into the marrow utilizing the bone marrow drill. 2 bone marrow aspirates were then obtained. Next, the drill was utilized to obtain a bone marrow core biopsy. The needle was removed and hemostasis was obtained using manual compression. The patient tolerated the procedure well and left the department in stable condition. IMPRESSION: Successful CT-guided bone marrow aspiration and biopsy utilizing conscious sedation. Dictated by: Dictated on workstation # [id number]
== END 2021-03-31 11:55 | disposition home or self-care (01) ==
LOC: RAD 07:26 → SDC 09:52 → RAD 11:55
PROVIDERS: ATTEND Internal Medicine Hematology & Oncology
DX: D69.3 Immune thrombocytopenic purpura (principal); D45 Polycythemia vera; Z79.82 Long term (current) use of aspirin; Z79.899 Other long term (current) drug therapy
CPT/HCPCS: 36415; 38222; 77012; 85007; 85027; 85045; 85055; 85610; 85730; 99156

== ENCOUNTER 2021-05-11 16:05 | Observation (INO) | payer MEDICARE, OTHER ==
[~2021-05-11] VITALS: Ht 165.1 cm; Wt 73.4 kg
[2021-05-11] MEDS ORDERED: ACETAMINOPHEN 500 MG TAB (TYLENOL) PO ONE (16:45)
[2021-05-11] MEDS ORDERED: LACTATED RINGERS 1,000 ML IV ONE ×2 (16:45→20:00)
[2021-05-11] MEDS ORDERED: ONDANSETRON 4 MG/2 ML (SDV) Z0FRAN IVP ONE (16:45)
[2021-05-11 16:57] LABS: BASOPHILS % (AUTO) 1 % (0-10); EOSINOPHILS # (AUTO) 0.1 10^3/uL (0.0-0.3); EOSINOPHILS % (AUTO) 1 % (0-10); HEMATOCRIT 45 % (35-52); HEMOGLOBIN 15.3 g/dL (11.5-16.0); LYMPHOCYTES # (AUTO) 0.6 10^3/uL (1.0-4.0); LYMPHOCYTES % (AUTO) 7 % (12-44); MEAN CORPUSCULAR HEMOGLOBIN 31 pg (25-34); MEAN CORPUSCULAR HGB CONC 34 g/dL (32-36); MEAN CORPUSCULAR VOLUME 90 fL (80-99); MEAN PLATELET VOLUME 9.5 fL (9.0-12.2); MONOCYTES # (AUTO) 1.1 10^3/uL (0.0-1.0); MONOCYTES % (AUTO) 12 % (0-12); NEUTROPHILS # (AUTO) 6.9 10^3/uL (1.8-7.8); NEUTROPHILS % (AUTO) 79 % (42-75); PLATELET COUNT 664 10^3/uL (130-400); WHITE BLOOD COUNT 8.7 10^3/uL (4.3-11.0)
[2021-05-11 17:08] LABS: ALBUMIN 3.8 GM/DL (3.2-4.5); POTASSIUM 3.9 MMOL/L (3.6-5.0)
[2021-05-11 17:09] LABS: CALCIUM 7.9 MG/DL (8.5-10.1)
[2021-05-11 17:10] LABS: INR 1.2 (0.8-1.4); PROTHROMBIN TIME PATIENT 15.4 SEC (12.2-14.7)
[2021-05-11 17:11] LABS: TOTAL PROTEIN 7.2 GM/DL (6.4-8.2)
[2021-05-11 17:12] LABS: BILIRUBIN,TOTAL 0.9 MG/DL (0.1-1.0)
[2021-05-11 17:13] LABS: BAND NEUTROPHILS 0 %; BASOPHILS % (MANUAL) 0 %; EOSINOPHILS % (MANUAL) 0 %; LYMPHOCYTES % (MANUAL) 8 %; MONOCYTES % (MANUAL) 4 %; NEUTROPHILS % (MANUAL) 88 %; RBC MORPH NORMAL
[2021-05-11 17:14] LABS: CREATININE SERUM 1.04 MG/DL (0.60-1.30)
[2021-05-11 18:24] LABS: MAGNESIUM 1.7 MG/DL (1.6-2.4)
--- NOTE | 2021-05-11 18:32 | Diagnostic Imaging Report ---
EXAMINATION: Chest radiograph, portable AP view. DATE: 05/11/2021 6:09 PM INDICATION: 70-year-old female, bodyaches, chills, cough. COMPARISON: December 26, 2018. FINDINGS: Stable overall appearance of the cardiomediastinal silhouette. There is no identified pneumothorax. There is no large pleural effusion. There is no identified focal airspace consolidation. IMPRESSION: No identified acute cardiopulmonary abnormality. Dictated by: Dictated on workstation # [id number]
[2021-05-11 18:48] LABS: BILIRUBIN,URINE NEGATIVE (NEGATIVE); CLARITY,URINE CLEAR; COLOR,URINE YELLOW; GLUCOSE, URINE (UA) NEGATIVE (NEGATIVE); KETONES,URINE NEGATIVE (NEGATIVE); LEUKOCYTE ESTERASE ,URINE NEGATIVE (NEGATIVE); NITRITE,URINE NEGATIVE (NEGATIVE); PROTEIN,URINE NEGATIVE (NEGATIVE)
[2021-05-11 19:00] LABS: BACTERIA,URINE NEGATIVE /HPF; WBC,URINE 0-2 /HPF
[2021-05-11] MEDS ORDERED: DOXYCYCLINE 100 MG (VIBRAMYCIN) TABLET PO ONE (19:30)
--- NOTE | 2021-05-11 19:56 | ED General ---
General Chief Complaint: Fever-Adult/Adol Stated Complaint: ACHES, CHILLS, NAUSEA Nursing Triage Note: PT FROM HOME TO RM 8 VIA WC. PT REPORTS BODY ACHES, CHILLS, COUGH, NAUSEA, CONGESTION, AND DIZZINESS. PT STATES SHE HAD A NEGATIVE COVID TEST ON MONDAY. Source of Information: Patient, Old Records Exam Limitations: No Limitations History of Present Illness Date Seen by Provider: May 11, 2021 Time Seen by Provider: 16:35 Initial Comments This 70-year-old woman presents to the emergency room via private vehicle with complaints of shortness of breath, mild cough, congestion, lightheadedness, nausea, headache, and myalgias that started earlier today. She was not feeling well last weekend in particular had headache and neck pain. She was seen in the clinic and had a negative Covid test on Monday the . She then felt better for a few days before again getting ill. She is febrile. Patient has a history of paroxysmal SVT and reports having an episode this morning. Allergies and Home Medications Allergies Coded Allergies: No Known Drug Allergies (Verified , 04/01/19) Home Medications Aspirin 81 Mg Tablet.dr, 81 MG PO DAILY, (Reported) Atorvastatin Calcium 10 Mg Tablet, 10 MG PO DAILY, (Reported) Metoprolol Succinate 25 Mg Tab.er.24h, 25 MG PO DAILY, (Reported) Morley-3/Dha/Epa/Fish Oil 1 Each Capsule, 2,000 MG PO DAILY, (Reported) Pantoprazole Sodium 40 Mg Tablet.dr, 40 MG PO DAILY, (Reported) Patient Home Medication List Home Medication List Reviewed: Yes Review of Systems Review of Systems Constitutional: see HPI EENTM: no symptoms reported Respiratory: see HPI Cardiovascular: see HPI Gastrointestinal: see HPI Genitourinary: no symptoms reported : No Musculoskeletal: see HPI Skin: no symptoms reported Psychiatric/Neurological: See HPI Hematologic/Lymphatic: No Symptoms Reported Immunological/Allergic: no symptoms reported Past Ksmfsox-Wgfcey-Sddiyj Hx Patient Social History Tobacco Use?: No Substance use?: No Alcohol Use?: No Pt feels they are or have been: No Immunizations Up To Date Tetanus Booster (TDap): Unknown COVID19 Vaccine 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 Seasonal Allergies Seasonal Allergies: Yes Past Medical History Surgeries: Yes (c/s x3, bilat TKR, colon resection with colostomy then reversal, ) Abdominal, Bowel Surgery, Cardiac, Section, Gallbladder, Joint Replacement, Orthopedic Respiratory: No Cardiac: Yes (PSVT; ) High Cholesterol, Irregular Heartbeat Neurological: No Reproductive Disorders: No 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 Genitourinary: No Gastrointestinal: Yes (S/P COLON RESECTION FOR OBSTRUCTION; OPEN CHOLECYSTECTOMY) Gastroesophageal Reflux, Obstructive Bowel Musculoskeletal: Yes (DJD) Arthritis Endocrine: No HEENT: No Cancer: No Psychosocial: No Integumentary: No Blood Disorders: No Adverse Reaction/Blood Tranf: No Family Medical History Cancer 19 MOTHER (LARYNX AND SPINE ) Family history: Cardiovascular disease 19 FATHER No Pertinent Family Hx Physical Exam-Suspected Sepsis Physical Exam Vital Signs Vital Signs - First Documented 05/11/21 16:25 Temp 39.2 Pulse 94 Resp 20 B/P (MAP) 113/68 (83) Pulse Ox 98 O2 Delivery Room Air Capillary Refill : Less Than 3 Seconds Blood Pressure Mean: 83 Height, Weight, BMI Height: 5'5.00" Weight: 160lbs. 0.0oz. 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 Norm as Tested Skin: normal color, warm/dry Focused Exam Lactate Level 05/11/21 16:40: Lactic Acid Level 3.12*H 05/11/21 18:55: Lactic Acid Level 1.56 Lactic Acid Level Progress/Results/Core Measures Suspected Sepsis SIRS Temperature: Pulse: 94 Respiratory Rate: 20 Laboratory Tests 05/11/21 16:40: White Blood Count 8.7 05/12/21 04:55: White Blood Count 6.7 Blood Pressure 113 /68 Mean: 83 05/11/21 16:40: Lactic Acid Level 3.12*H 05/11/21 18:55: Lactic Acid Level 1.56 Laboratory Tests 05/11/21 16:40: Creatinine 1.04, INR Comment 1.2, Platelet Count 664H, Total Bilirubin 0.9 05/12/21 04:55: Creatinine 0.99, Platelet Count 488H Results/Orders Lab Results Laboratory Tests Test 05/11/21 16:35 05/11/21 16:40 05/11/21 18:36 05/11/21 18:55 Range/Units Influenza Type A (RT-PCR) Not Detected Not Detecte Influenza Type B (RT-PCR) Not Detected Not Detecte SARS-CoV-2 RNA (RT-PCR) Not Detected Not Detecte White Blood Count 8.7 4.3-11.0 10^3/uL Red Blood Count 4.99 3.80-5.11 10^6/uL Hemoglobin 15.3 11.5-16.0 g/dL Hematocrit 45 35-52 % Mean Corpuscular Volume 90 80-99 fL Mean Corpuscular Hemoglobin 31 25-34 pg Mean Corpuscular Hemoglobin Concent 34 32-36 g/dL Red Cell Distribution Width 14.8 H 10.0-14.5 % Platelet Count 664 H 130-400 10^3/uL Mean Platelet Volume 9.5 9.0-12.2 fL Immature Granulocyte % (Auto) 1 % Neutrophils (%) (Auto) 79 H 42-75 % Lymphocytes (%) (Auto) 7 L 12-44 % Monocytes (%) (Auto) 12 0-12 % Eosinophils (%) (Auto) 1 0-10 % Basophils (%) (Auto) 1 0-10 % Neutrophils # (Auto) 6.9 1.8-7.8 10^3/uL Lymphocytes # (Auto) 0.6 L 1.0-4.0 10^3/uL Monocytes # (Auto) 1.1 H 0.0-1.0 10^3/uL Eosinophils # (Auto) 0.1 0.0-0.3 10^3/uL Basophils # (Auto) 0.0 0.0-0.1 10^3/uL Immature Granulocyte # (Auto) 0.1 0.0-0.1 10^3/uL Neutrophils % (Manual) 88 % Lymphocytes % (Manual) 8 % Monocytes % (Manual) 4 % Eosinophils % (Manual) 0 % Basophils % (Manual) 0 % Band Neutrophils 0 % Blood Morphology Comment NORMAL Erythrocyte Sedimentation Rate 13 0-30 MM/HR Prothrombin Time 15.4 H 12.2-14.7 SEC INR Comment 1.2 0.8-1.4 Activated Partial Thromboplast Time 29 24-35 SEC D-Dimer 0.49 0.00-0.49 UG/ML Sodium Level 139 135-145 MMOL/L Potassium Level 3.9 3.6-5.0 MMOL/L Chloride Level 101 98-107 MMOL/L Carbon Dioxide Level 22 21-32 MMOL/L Anion Gap 16 H 5-14 MMOL/L Blood Urea Nitrogen 14 7-18 MG/DL Creatinine 1.04 0.60-1.30 MG/DL Estimat Glomerular Filtration Rate 52 BUN/Creatinine Ratio 13 Glucose Level 142 H 70-105 MG/DL Lactic Acid Level 3.12 *H 1.56 0.50-2.00 MMOL/L Calcium Level 7.9 L 8.5-10.1 MG/DL Corrected Calcium 8.1 L 8.5-10.1 MG/DL Magnesium Level 1.7 1.6-2.4 MG/DL Total Bilirubin 0.9 0.1-1.0 MG/DL Aspartate Amino Transf (AST/SGOT) 43 H 5-34 U/L Alanine Aminotransferase (ALT/SGPT) 63 H 0-55 U/L Alkaline Phosphatase 93 40-136 U/L Total Creatine Kinase 20 L 29-168 U/L Myoglobin 23.4 10.0-92.0 NG/ML Troponin I 0.068 H <0.028 NG/ML C-Reactive Protein High Sensitivity 4.60 H 0.00-0.50 MG/DL B-Type Natriuretic Peptide 253.6 H <100.0 PG/ML Total Protein 7.2 6.4-8.2 GM/DL Albumin 3.8 3.2-4.5 GM/DL Procalcitonin 0.09 <0.10 NG/ML Urine Color YELLOW Urine Clarity CLEAR Urine pH 6.0 5-9 Urine Specific [place] 1.015 L 1.016-1.022 Urine Protein NEGATIVE NEGATIVE Urine Glucose (UA) NEGATIVE NEGATIVE Urine Ketones NEGATIVE NEGATIVE Urine Nitrite NEGATIVE NEGATIVE Urine Bilirubin NEGATIVE NEGATIVE Urine Urobilinogen 1.0 < = 1.0 MG/DL Urine Leukocyte Esterase NEGATIVE NEGATIVE Urine RBC (Auto) NEGATIVE NEGATIVE Urine RBC NONE /HPF Urine WBC 0-2 /HPF Urine Squamous Epithelial Cells NONE /HPF Urine Crystals NONE /LPF Urine Bacteria NEGATIVE /HPF Urine Casts NONE /LPF Urine Mucus NEGATIVE /LPF Urine Culture Indicated CULTURE PENDING Test 05/11/21 19:33 05/11/21 22:35 05/12/21 04:55 Range/Units Troponin I 0.092 H 0.067 H <0.028 NG/ML White Blood Count 6.7 4.3-11.0 10^3/uL Red Blood Count 4.08 3.80-5.11 10^6/uL Hemoglobin 12.4 11.5-16.0 g/dL Hematocrit 38 35-52 % Mean Corpuscular Volume 93 80-99 fL Mean Corpuscular Hemoglobin 30 25-34 pg Mean Corpuscular Hemoglobin Concent 33 32-36 g/dL Red Cell Distribution Width 15.1 H 10.0-14.5 % Platelet Count 488 H 130-400 10^3/uL Mean Platelet Volume 9.7 9.0-12.2 fL Immature Granulocyte % (Auto) 1 % Neutrophils (%) (Auto) 70 42-75 % Lymphocytes (%) (Auto) 12 12-44 % Monocytes (%) (Auto) 16 H 0-12 % Eosinophils (%) (Auto) 1 0-10 % Basophils (%) (Auto) 1 0-10 % Neutrophils # (Auto) 4.7 1.8-7.8 10^3/uL Lymphocytes # (Auto) 0.8 L 1.0-4.0 10^3/uL Monocytes # (Auto) 1.0 0.0-1.0 10^3/uL Eosinophils # (Auto) 0.0 0.0-0.3 10^3/uL Basophils # (Auto) 0.1 0.0-0.1 10^3/uL Immature Granulocyte # (Auto) 0.1 0.0-0.1 10^3/uL Sodium Level 140 135-145 MMOL/L Potassium Level 3.9 3.6-5.0 MMOL/L Chloride Level 106 98-107 MMOL/L Carbon Dioxide Level 22 21-32 MMOL/L Anion Gap 12 5-14 MMOL/L Blood Urea Nitrogen 15 7-18 MG/DL Creatinine 0.99 0.60-1.30 MG/DL Estimat Glomerular Filtration Rate 55 BUN/Creatinine Ratio 15 Glucose Level 103 70-105 MG/DL Calcium Level 7.8 L 8.5-10.1 MG/DL C-Reactive Protein High Sensitivity 8.41 H 0.00-0.50 MG/DL Triglycerides Level 97 <150 MG/DL Cholesterol Level 90 < 200 MG/DL LDL Cholesterol Direct 52 1-129 MG/DL VLDL Cholesterol 19 5-40 MG/DL HDL Cholesterol 23 L 40-60 MG/DL My Orders Orders - VENU HAYDEN MD Acetaminophen Tablet (Tylenol Tablet) (05/11/21 16:45) Ondansetron Injection (Zofran Injectio (05/11/21 16:45) Ed Iv/Invasive Line Start (05/11/21 16:37) Lactated Ringers (Lr 1000 Ml Iv Solution (05/11/21 16:45) Cbc With Automated Diff (05/11/21 16:37) Comprehensive Metabolic Panel (05/11/21 16:37) Blood Culture (05/11/21 16:37) Sputum Culture (05/11/21 16:37) Urinalysis (05/11/21 16:37) Urine Culture (05/11/21 16:37) Protime With Inr (05/11/21 16:37) Partial Thromboplastin Time (05/11/21 16:37) Chest 1 View, Ap/Pa Only (05/11/21 16:37) Vital Signs Adult Sepsis Patie Q15M (05/11/21 16:37) O2 (05/11/21 16:37) Remove Rings In Anticipation O (05/11/21 16:37) Lactic Acid Analyzer (05/11/21 16:37) Procalcitonin (Pct) (05/11/21 16:37) Hs C Reactive Protein (05/11/21 16:37) Covid 19 Inhouse Test (05/11/21 16:37) Influenza A And B By Pcr (05/11/21 16:37) Manual Differential (05/11/21 16:40) Magnesium (05/11/21 17:46) Ekg Tracing (05/11/21 17:46) Myoglobin Serum (05/11/21 17:46) Monitor-Rhythm Ecg Trace Only (05/11/21 17:46) Troponin I (05/11/21 17:46) Creatine Kinase (05/11/21 17:46) Fibrin Degradation Products (05/11/21 17:46) Erythrocyte Sedimentation Rate (05/11/21 19:12) BNP (05/11/21 19:16) Tick Panel With Lyme Eia (05/11/21 19:19) Doxycycline Hyclate Tablet (Vibramycin T (05/11/21 19:30) Lactated Ringers (Lr 1000 Ml Iv Solution (05/11/21 20:00) Medications Given in ED Vital Signs/I&O 05/11/21 05/11/21 05/11/21 05/12/21 21:19 22:13 22:19 00:55 Temp 39.2 36.2 Pulse 74 76 74 Resp 16 16 B/P (MAP) 103/56 (83) 100/54 (69) Pulse Ox 96 96 O2 Delivery Room Air Room Air Room Air 05/12/21 05/12/21 05/12/21 01:00 04:50 08:01 Temp 36.8 36.2 Pulse 72 58 67 Resp 16 18 B/P (MAP) 115/57 (76) 125/60 (81) Pulse Ox 98 99 O2 Delivery Room Air Room Air 05/12/21 00:00 Intake Total 1000 ml Balance 1000 ml Capillary Refill : Less Than 3 Seconds Blood Pressure Mean: 83 Progress Note #1: Time: 20:10 Progress Note Septic work-up was pursued. No source of infection was identified and no reason for her lightheadedness and shortness of breath was identified. Cardiac work-up was added including EKG, D-dimer, and troponin. EKG and D-dimer were normal but troponin was slightly elevated. This is likely secondary to the SVT she had this morning. She had a cardiac cath in 2017 showing no obstructive disease. Patient felt markedly improved after a liter of IV fluid and Tylenol. Case was reviewed with Dr. Sherwood because of the elevated troponin. He requested 2 additional troponin measurements 6 hours apart for cardiac clearance. I discussed the case with Dr. PALMER. She recommended obtaining a tick panel and providing doxycycline 100 mg twice daily orally. First dose was ordered for the ER. At the time of transition to care to Dr. JEAN BAPTISTE, it was noted patient had systolic blood pressures in the 80s. An additional liter of IV fluid was ordered. Patient is likely hypovolemic as she spends much time outside in the heat. We will assess her blood pressure after this bolus. Progress Note #2: Progress Note Hypotension resolved with fluid boluses and patient was admitted. ECG Initial ECG Impression Date: May 11, 2021 Initial ECG Impression Time: 18:26 Initial ECG Rate: 79 Initial ECG Rhythm: Normal Sinus Initial ECG Intervals: Normal Initial ECG Impression: Normal Comment Normal sinus rhythm with no ST elevation or depression. No abnormal intervals or axis deviation. Diagnostic Imaging Diagonstic Imaging: Xray Plain Films/CT/US/NM/MRI: chest Comments NAME: [facility] REC#: [id number] PT STATUS: REG ER : 1950 PHYSICIAN: VENU HAYDEN MD ADMIT DATE: 05/11/21/ER Signed Date of Exam:05/11/21 CHEST 1 VIEW, AP/PA ONLY EXAMINATION: Chest radiograph, portable AP view. DATE: 05/11/2021 6:09 PM INDICATION: 70-year-old female, bodyaches, chills, cough. COMPARISON: December 26, 2018. FINDINGS: Stable overall appearance of the cardiomediastinal silhouette. There is no identified pneumothorax. There is no large pleural effusion. There is no identified focal airspace consolidation. IMPRESSION: No identified acute cardiopulmonary abnormality. Dictated by: Dictated on workstation # [id number] Dict: 05/11/211811 Trans: 05/11/211838 [facility] [place] [id number] Interpreted by: MICHELLE OSULLIVAN MD Electronically signed by: MICHELLE OSULLIVAN MD 05/11/211838 Departure Communication (Admissions) Time/Spoke to Admitting Phy: 19:15 Dr. Palmer Time/Spoke to Consulting Phy: 19:15 Dr. Sherwood Impression Primary Impression: Febrile illness Additional Impressions: Elevated troponin Shortness of breath Disposition: ADMITTED INPATIENT Condition: Improved Admissions Decision to Admit Reason: Admit from ER (General) Decision to Admit/Date: May 11, 2021 Time/Decision to Admit Time: 19:15 Departure-Patient Inst. Referrals: SCOTT PALMER MD (PCP/Family) Primary Care Physician VENU HAYDEN MD May 11, 2021 19:56
[2021-05-11] MEDS ORDERED: ONDANSETRON 4 MG/2 ML (SDV) Z0FRAN IV PRN (21:45)
[2021-05-11] MEDS ORDERED: PATIENT MAY USE OWN MEDS, ALL MC SCH (21:45)
[2021-05-11] MEDS: LACTATED RINGERS 1,000 ML IV SCH (22:04)
[2021-05-11] MEDS: IBUPROFEN TABLET 200 MG TAB PO PRN (22:15)
[2021-05-12] VITALS (7 sets, daily range): BP systolic 92–138; BP diastolic 51–66
[2021-05-12] MEDS: LACTATED RINGERS 1,000 ML IV SCH ×2 (04:40→13:33)
[2021-05-12 05:05] LABS: BASOPHILS # (AUTO) 0.1 10^3/uL (0.0-0.1); BASOPHILS % (AUTO) 1 % (0-10); EOSINOPHILS % (AUTO) 1 % (0-10); HEMATOCRIT 38 % (35-52); HEMOGLOBIN 12.4 g/dL (11.5-16.0); LYMPHOCYTES # (AUTO) 0.8 10^3/uL (1.0-4.0); LYMPHOCYTES % (AUTO) 12 % (12-44); MEAN CORPUSCULAR HEMOGLOBIN 30 pg (25-34); MEAN CORPUSCULAR HGB CONC 33 g/dL (32-36); MEAN CORPUSCULAR VOLUME 93 fL (80-99); MEAN PLATELET VOLUME 9.7 fL (9.0-12.2); MONOCYTES % (AUTO) 16 % (0-12); NEUTROPHILS # (AUTO) 4.7 10^3/uL (1.8-7.8); NEUTROPHILS % (AUTO) 70 % (42-75); PLATELET COUNT 488 10^3/uL (130-400); WHITE BLOOD COUNT 6.7 10^3/uL (4.3-11.0)
[2021-05-12 05:16] LABS: POTASSIUM 3.9 MMOL/L (3.6-5.0)
[2021-05-12 05:17] LABS: CALCIUM 7.8 MG/DL (8.5-10.1)
[2021-05-12 05:22] LABS: CREATININE SERUM 0.99 MG/DL (0.60-1.30)
--- NOTE | 2021-05-12 07:52 | Consultation-Cardiology ---
HPI-Cardiology Cardiology Consultation: Date of Consultation 05/12/21 Date of Admission Attending Physician Marivel Palmer MD Admitting Physician Marivel Palmer MD Consulting Physician EVA LR Review of Systems-Cardiology Review of Systems : No ILB-Xiwilk-Gtakyo Hx Patient Social History Smoking Status: Never a Smoker 2nd Hand Smoke Exposure: No Have you traveled recently?: No Alcohol Use?: No Pt feels they are or have been: No Immunizations Up To Date Tetanus Booster (TDap): Unknown Date of Pneumonia Vaccine: Nov 23, 2015 Date of Influenza Vaccine: Sep 05, 2017 Past Medical History PMH As described under Assessment. Family Medical History Family History: Cancer 19 MOTHER (LARYNX AND SPINE ) Family history: Cardiovascular disease 19 FATHER Allergies and Home Medications Allergies Coded Allergies: No Known Drug Allergies (Verified , 04/01/19) Home Medications Aspirin 81 Mg Tablet.dr, 81 MG PO DAILY, (Reported) Atorvastatin Calcium 10 Mg Tablet, 10 MG PO DAILY, (Reported) Metoprolol Succinate 25 Mg Tab.er.24h, 25 MG PO DAILY, (Reported) [place]-3/Dha/Epa/Fish Oil 1 Each Capsule, 2,000 MG PO DAILY, (Reported) Pantoprazole Sodium 40 Mg Tablet.dr, 40 MG PO DAILY, (Reported) Physical Exam-Cardiology Physical Exam Vital Signs/I&O 05/11/21 05/11/21 05/11/21 05/12/21 21:19 22:13 22:19 00:55 Temp 39.2 36.2 Pulse 74 76 74 Resp 16 16 B/P (MAP) 103/56 (83) 100/54 (69) Pulse Ox 96 96 O2 Delivery Room Air Room Air Room Air 05/12/21 05/12/21 01:00 04:50 Temp 36.8 Pulse 72 58 Resp 16 B/P (MAP) 115/57 (76) Pulse Ox 98 O2 Delivery Room Air 05/12/21 00:00 Intake Total 2000 ml Balance 2000 ml Capillary Refill : Less Than 3 Seconds Skin: normal color, warm/dry Data Review Labs Laboratory Tests 05/11/21 16:35: Influenza Type A (RT-PCR) Not Detected, Influenza Type B (RT-PCR) Not Detected, SARS-CoV-2 RNA (RT-PCR) Not Detected 05/11/21 16:40: White Blood Count 8.7, Red Blood Count 4.99, Hemoglobin 15.3, Hematocrit 45, Mean Corpuscular Volume 90, Mean Corpuscular Hemoglobin 31, Mean Corpuscular Hemoglobin Concent 34, Red Cell Distribution Width 14.8H, Platelet Count 664H, Mean Platelet Volume 9.5, Immature Granulocyte % (Auto) 1, Neutrophils (%) (Auto) 79H, Lymphocytes (%) (Auto) 7L, Monocytes (%) (Auto) 12, Eosinophils (%) (Auto) 1, Basophils (%) (Auto) 1, Neutrophils # (Auto) 6.9, Lymphocytes # (Auto) 0.6L, Monocytes # (Auto) 1.1H, Eosinophils # (Auto) 0.1, Basophils # (Auto) 0.0, Immature Granulocyte # (Auto) 0.1, Neutrophils % (Manual) 88, Lymphocytes % (Manual) 8, Monocytes % (Manual) 4, Eosinophils % (Manual) 0, Basophils % (Manual) 0, Band Neutrophils 0, Blood Morphology Comment NORMAL, Erythrocyte S edimentation Rate 13, Prothrombin Time 15.4H, INR Comment 1.2, Activated Partial Thromboplast Time 29, D-Dimer 0.49, Sodium Level 139, Potassium Level 3.9, Chloride Level 101, Carbon Dioxide Level 22, Anion Gap 16H, Blood Urea Nitrogen 14, Creatinine 1.04, Estimat Glomerular Filtration Rate 52, BUN/Creatinine Ratio 13, Glucose Level 142H, Lactic Acid Level 3.12*H, Calcium Level 7.9L, Corrected Calcium 8.1L, Magnesium Level 1.7, Total Bilirubin 0.9, Aspartate Amino Transf (AST/SGOT) 43H, Alanine Aminotransferase (ALT/SGPT) 63H, Alkaline Phosphatase 93, Total Creatine Kinase 20L, Myoglobin 23.4, Troponin I 0.068H, C-Reactive Protein High Sensitivity 4.60H, B-Type Natriuretic Peptide 253.6H, Total Protein 7.2, Albumin 3.8, Procalcitonin 0.09 05/11/21 18:36: Urine Color YELLOW, Urine Clarity CLEAR, Urine pH 6.0, Urine Specific [place] 1.015L, Urine Protein NEGATIVE, Urine Glucose (UA) NEGATIVE, Urine Ketones NEGATIVE, Urine Nitrite NEGATIVE, Urine Bilirubin NEGATIVE, Urine Urobilinogen 1.0, Urine Leukocyte Esterase NEGATIVE, Urine RBC (Auto) NEGATIVE, Urine RBC NONE, Urine WBC 0-2, Urine Squamous Epithelial Cells NONE, Urine Crystals NONE, Urine Bacteria NEGATIVE, Urine Casts NONE, Urine Mucus NEGATIVE, Urine Culture Indicated CULTURE PENDING 05/11/21 18:55: Lactic Acid Level 1.56 05/11/21 19:33: 05/11/21 22:35: Troponin I 0.092H 05/12/21 04:55: Troponin I 0.067H, White Blood Count 6.7, Red Blood Count 4.08, Hemoglobin 12.4, Hematocrit 38, Mean Corpuscular Volume 93, Mean Corpuscular Hemoglobin 30, Mean Corpuscular Hemoglobin Concent 33, Red Cell Distribution Width 15.1H, Platelet Count 488H, Mean Platelet Volume 9.7, Immature Granulocyte % (Auto) 1, Neutrophils (%) (Auto) 70, Lymphocytes (%) (Auto) 12, Monocytes (%) (Auto) 16H, Eosinophils (%) (Auto) 1, Basophils (%) (Auto) 1, Neutrophils # (Auto) 4.7, Lymphocytes # (Auto) 0.8L, Monocytes # (Auto) 1.0, Eosinophils # (Auto) 0.0, Basophils # (Auto) 0.1, Immature Granulocyte # (Auto) 0.1, Sodium Level 140, Potassium Level 3.9, Chloride Level 106, Carbon Dioxide Level 22, Anion Gap 12, Blood Urea Nitrogen 15, Creatinine 0.99, Estimat Glomerular Filtration Rate 55, BUN/Creatinine Ratio 15, Glucose Level 103, Calcium Level 7.8L, C-Reactive Protein High Sensitivity 8.41H, Triglycerides Level 97, Cholesterol Level 90, LDL Cholesterol Direct 52, VLDL Cholesterol 19, HDL Cholesterol 23L Laboratory Tests 05/11/21 16:40 05/12/21 04:55 Radiology NAME: [facility] REC#: [id number] PT STATUS: REG ER : 1950 PHYSICIAN: VENU HAYDEN MD ADMIT DATE: 05/11/21/ER Signed Date of Exam:05/11/21 CHEST 1 VIEW, AP/PA ONLY EXAMINATION: Chest radiograph, portable AP view. DATE: 05/11/2021 6:09 PM INDICATION: 70-year-old female, bodyaches, chills, cough. COMPARISON: December 26, 2018. FINDINGS: Stable overall appearance of the cardiomediastinal silhouette. There is no identified pneumothorax. There is no large pleural effusion. There is no identified focal airspace consolidation. IMPRESSION: No identified acute cardiopulmonary abnormality. Dictated by: Dictated on workstation # [id number] Dict: 05/11/[id number] Trans: 05/11/[id number] [facility] [id number] Interpreted by: MICHELLE OSULLIVAN MD Electronically signed by: MICHELLE OSULLIVAN MD 05/11/219 A/P-Cardiology Assessment/Admission Diagnosis Paroxysmal supraventricular tachycardia-was evaluated and treated in the ER on June 25, 2018, converted with adenosine. EKG today reveals sinus rhythm. Prior to that she had one other episode in August 2017. Chest pain nonspecific etiology, atypical in presentation, resolved. Nonobstructive coronary artery disease per cardiac catheterization September [address] Hernandez Hyperlipidemia Mild bilateral carotid stenosis, last ultrasound was done in June 2018 Gastroesophageal reflux disease History of cholecystectomy, partial colectomy, bowel repair, bilateral knee replacement. EVA MELENDEZ [facility] May 12, 2021 07:52
[2021-05-12] MEDS ORDERED: OMEGA 3 (FISH OIL) 1000 MG CAP PO SCH (08:00)
[2021-05-12] MEDS ORDERED: OMEG-154 PO (08:46)
[2021-05-12] MEDS ORDERED: HYDR500C2 PO (08:46)
[2021-05-12] MEDS ORDERED: ALEN70TA80 PO (08:48)
--- NOTE | 2021-05-12 08:53 | History & Physical ---
History of Present Illness History of Present Illness Reason for visit/HPI PT IS A 70 Y/O FEMALE WHO IS A NEW PATIENT IN MY MEDICAL PRACTICE. SHE REPORTEDLY WAS GETTING READY TO GO TO THE HAIR DRESSERS, FELT HER HEART RACING, WENT BACK INTO HER HOME, PERFORMED VALSALVA AND OTHER MANEUVERS TO GET HER HEART RATE UNDER CONTROL, AND FELT HER HEART EVENTUALLY SETTLE DOWN. HOWEVER SHORTLY THEREAFTER SHE BEGAN TO EXPERIENCE SHAKING CHILLS, AND DEVELOPED A FEVER. SHE CALLED HER SON WHO BROUGHT HER INTO THE HOSPITAL FOR EVALUATION. SHE WAS FOUND TO HAVE A SLIGHTLY ELEVATED TROPONIN ON ER EVAL AND SHE WAS ADMITTED TO THE HOSPITAL WITH POSSIBLE SEPSIS AND RULE OUT OF CARDIAC EVENT. Date of Admission May 11, 2021 at 19:52 Date Seen by a Provider: May 12, 2021 Time Seen by a Provider: 08:50 Attending Physician Scott Palmer MD Admitting Physician Scott Palmer MD Consult DR. MCGRAW Allergies and Home Medications Allergies Coded Allergies: No Known Drug Allergies (Verified , 04/01/19) Home Medications Alendronate Sodium 70 Mg Tablet, 70 MG PO SUN, (Reported) Last Action: Reviewed Aspirin 81 Mg Tablet., 81 MG PO DAILY, (Reported) Last Action: Reviewed Atorvastatin Calcium 10 Mg Tablet, 10 MG PO DAILY, (Reported) Last Action: Reviewed Hydroxyurea 500 Mg Capsule, 500 MG PO DAILY, (Reported) Last Action: Reviewed Metoprolol Succinate 25 Mg Tab.er.24h, 25 MG PO DAILY, (Reported) Last Action: Reviewed [place]-3S/Dha/Epa/Fish Oil 1 Each Capsule.dr, 2 EACH PO DAILY, (Reported) Last Action: Reviewed Pantoprazole Sodium 40 Mg Tablet., 40 MG PO DAILY, (Reported) Last Action: Reviewed Patient Home Medication List Home Medication List Reviewed: Yes Past Zjulfsf-Bfycll-Ivehmw Hx Patient Social History Marrital Status: Number of Children: 3 Number of living children: 3 Living Status: LIVES AT HOME ALONE Employed/Student: retired Tobacco Use?: No Smoking Status: Never a Smoker Smokeless Tobacco Frequency: Never a User Use of E-Cig and/or Vaping dev: No Substance use?: No Alcohol Use?: No Pt feels they are or have been: No Immunizations Up To Date Date of Influenza Vaccine: Sep 05, 2017 First/Initial COVID19 Vaccinat: 02/12/21 Second COVID19 Vaccination Anibal: 12/25/20 Tetanus Booster (TDap): Unknown Hepatitis A: No Hepatitis B: No Date of Pneumonia Vaccine: Nov 23, 2015 Seasonal Allergies Seasonal Allergies: Yes Current Status status: No status: No Advance Directives: Yes Advance Directive Location: Home Communicates: Verbally Primary Language: Andorran Preferred Spoken Language: Andorran Is interpretation needed?: No Implanted or Applied Medical D: Orthopedic hardware Past Medical History Surgeries: Abdominal, Bowel Surgery, Cardiac, Section, Gallbladder, J oint Replacement, Orthopedic Currently Using CPAP: No Currently Using BIPAP: No High Cholesterol, Irregular Heartbeat 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: Menopausal Gastroesophageal Reflux, Obstructive Bowel Arthritis Blood Disorders: No Adverse Reaction/Blood Tranf: No Family Medical History Reviewed Nursing Family Hx Cancer 19 MOTHER (LARYNX AND SPINE ) Family history: Cardiovascular disease 19 FATHER Review of Systems Constitutional: chills, fever; No malaise, No weakness EENTM: No hearing loss, No hoarseness, No throat pain Respiratory: No cough, No dyspnea on exertion, No short of breath Cardiovascular: No chest pain; palpitations Gastrointestinal: No abdominal pain, No constipation, No diarrhea, No loss of appetite, No nausea, No vomiting Genitourinary: no symptoms reported; No hematuria Musculoskeletal: No back pain, No muscle weakness Skin: No lesions Psychiatric/Neurological: Denies Anxiety, Denies Depressed; Weakness All Other Systems Reviewed Negative Unless Noted: Yes Physical Exam Vital Signs Vital Signs - First Documented 05/11/21 16:25 Temp 39.2 Pulse 94 Resp 20 B/P (MAP) 113/68 (83) Pulse Ox 98 O2 Delivery Room Air Capillary Refill : Less Than 3 Seconds Height, Weight, BMI Height: 5'5.00" Weight: 160lbs. 0.0oz. 72.560294lp; 26.92 BMI Method:Stated General Appearance: No Apparent Distress, WD/WN Eyes: Bilateral Eye Normal Inspection, Bilateral Eye PERRL, Bilateral Eye EOMI HEENT: PERRL/EOMI, Normal ENT Inspection, Pharynx Normal Neck: Full Range of Motion, Non Tender, Supple Respiratory: Chest Non Tender, Lungs Clear, Normal Breath Sounds, No Accessory Muscle Use, No Respiratory Distress Cardiovascular: Regular Rate, Rhythm, No Edema, No Gallop, Normal Peripheral Pulses Gastrointestinal: Normal Bowel Sounds, No Organomegaly, No Pulsatile Mass, Non Tender, Soft Rectal: Deferred Back: Normal Inspection, No CVA Tenderness, No Vertebral Tenderness Extremity: Normal Capillary Refill, Normal Inspection, Normal Range of Motion, Non Tender, No Calf Tenderness, No Pedal Edema Neurologic/Psychiatric: Alert, Oriented x3, No Motor/Sensory Deficits, Normal Mood/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 MCGRAW - WILL DO ECHO TODAY - PENDING ECHO WILL CONSIDER STRESS TESTING. PALPITATIONS - RESUME METOPROLOL - MONITOR HEART RATE IN HOSPITAL THROMBOCYTHEMIA - CONTINUE WITH ASA DAILY Admission Diagnosis SEPSIS HX OF TICK EXPOSURE/BITES ELEVATED TROPONIN PALPITATIONS CHILLS FEVER THROMBOCYTHEMIA Admission Status: Observation SCOTT PALMER MD May 12, 2021 08:53
[2021-05-12] MEDS ORDERED: PANTOPRAZOLE 40 MG (PROTONIX) TAB PO SCH (09:00)
[2021-05-12] MEDS ORDERED: ASPIRIN E.C. 81 MG (ECOTRIN) TAB PO SCH (09:00)
[2021-05-12] MEDS ORDERED: HYDROXYUREA 500 MG CAP (HYDREA) PO SCH (09:00)
[2021-05-12] MEDS: ASPIRIN E.C. 81 MG (ECOTRIN) TAB PO SCH (09:41)
[2021-05-12] MEDS: OMEGA 3 (FISH OIL) 1000 MG CAP PO SCH ×2 (09:42→17:59)
[2021-05-12] MEDS: HYDROXYUREA 500 MG CAP (HYDREA) PO SCH (09:42)
[2021-05-12] MEDS: PANTOPRAZOLE 40 MG (PROTONIX) TAB PO SCH (09:42)
[2021-05-12] MEDS ORDERED: REGADENOSON 0.4 MG/5 ML SYR (LEXISCAN) IV ONE (09:45)
--- NOTE | 2021-05-12 10:29 | Consultation-Cardiology ---
HPI-Cardiology Cardiology Consultation: Date of Consultation 05/12/21 Time Seen by a Provider: 09:10 Date of Admission Attending Physician Marivel Palmer MD Admitting Physician Marivel Palmer MD Consulting Physician APURVA MCGRAW MD, MA, FACP, FACC, FSCAI, CCDS HPI: Chief Complaint: Reason for consultation: Elevated troponin HPI 70 yo woman who had sudden onset of palp yesterday am, lasted an hour, consisted of a feeling of a rapid heart beat, resolved with carrying out vagal maneuvers that she was taught several yrs ago to treat such episodes. Later during the day, she developed chills, malaise, some shortness of breath, and a feverish feeling; decided to come to the ER; states temp in ER at presentation was 102 deg F. ER physician also noted minimal troponin elevation. She was hospitalized. She denies cp Review of Systems-Cardiology Review of Systems Constitutional: malaise, tiredness; No weight loss, No weight gain Eyes: No vision change Ears/Nose/Throat: No ear discharge, No nasal drainage, No recent hearing loss Respiratory: As described under HPI Cardiovascular: As described under HPI Gastrointestinal: No diarrhea, No nausea, No vomiting Genitourinary: No dysuria, No hematuria, No urine frequency changes : No Musculoskeletal: No back pain, No joint pain Skin: No rash, No ulcerations Psychiatric/Neurological: No seizure, No focal weakness, No syncope ASD-Gfctbf-Xzxkmu Hx Patient Social History Smoking Status: Never a Smoker 2nd Hand Smoke Exposure: No Have you traveled recently?: No Alcohol Use?: No Pt feels they are or have been: No Immunizations Up To Date Tetanus Booster (TDap): Unknown Date of Pneumonia Vaccine: Nov 23, 2015 Date of Influenza Vaccine: Sep 05, 2017 Past Medical History PMH As described under Assessment. Family Medical History Family History: Cancer 19 MOTHER (LARYNX AND SPINE ) Family history: Cardiovascular disease 19 FATHER Allergies and Home Medications Allergies Coded Allergies: No Known Drug Allergies (Verified , 04/01/19) Home Medications Alendronate Sodium 70 Mg Tablet, 70 MG PO SUN, (Reported) Last Action: Reviewed Aspirin 81 Mg Tablet.dr, 81 MG PO DAILY, (Reported) Last Action: Reviewed Atorvastatin Calcium 10 Mg Tablet, 10 MG PO DAILY, (Reported) Last Action: Reviewed Hydroxyurea 500 Mg Capsule, 500 MG PO DAILY, (Reported) Last Action: Reviewed Metoprolol Succinate 25 Mg Tab.er.24h, 25 MG PO DAILY, (Reported) Last Action: Reviewed [place]-3S/Dha/Epa/Fish Oil 1 Each Capsule.dr, 2 EACH PO DAILY, (Reported) Last Action: Reviewed Pantoprazole Sodium 40 Mg Tablet.dr, 40 MG PO DAILY, (Reported) Last Action: Reviewed Patient Home Medication List Home Medication List Reviewed: Yes Physical Exam-Cardiology Physical Exam Vital Signs/I&O 05/11/21 05/11/21 05/12/21 05/12/21 22:13 22:19 00:55 01:00 Temp 36.2 Pulse 76 74 72 Resp 16 B/P (MAP) 100/54 (69) Pulse Ox 96 O2 Delivery Room Air Room Air 05/12/21 05/12/21 04:50 08:01 Temp 36.8 36.2 Pulse 58 67 Resp 16 18 B/P (MAP) 115/57 (76) 125/60 (81) Pulse Ox 98 99 O2 Delivery Room Air Room Air 05/12/21 00:00 Intake Total 2000 ml Balance 2000 ml Capillary Refill : Less Than 3 Seconds Constitutional: AAO x 3, well-developed, well-nourished HEENT: EOMI, hearing is well preserved; No xanthelasmas are seen Neck: carotid pulses are 2 + bilaterally Respiratory: No accessory muscle use; other (fair to good, bilateral air entry, diminished at the bases) Cardiovascular: regular rate-rhythm, S1 and S2, systolic murmur (soft MIGUEL at ca rd base) Gastrointestinal: No tender; soft; No guarding, No rebound; audible bowel sounds Extremities: No clubbing, No cyanosis, No significant edema Neurologic/Psychiatric: oriented x 3, other (moves all limbs equally) Skin: normal color, warm/dry Data Review Labs Laboratory Tests 05/11/21 16:35: Influenza Type A (RT-PCR) Not Detected, Influenza Type B (RT-PCR) Not Detected, SARS-CoV-2 RNA (RT-PCR) Not Detected 05/11/21 16:40: White Blood Count 8.7, Red Blood Count 4.99, Hemoglobin 15.3, Hematocrit 45, Mean Corpuscular Volume 90, Mean Corpuscular Hemoglobin 31, Mean Corpuscular Hemoglobin Concent 34, Red Cell Distribution Width 14.8H, Platelet Count 664H, Mean Platelet Volume 9.5, Immature Granulocyte % (Auto) 1, Neutrophils (%) (Auto) 79H, Lymphocytes (%) (Auto) 7L, Monocytes (%) (Auto) 12, Eosinophils (%) (Auto) 1, Basophils (%) (Auto) 1, Neutrophils # (Auto) 6.9, Lymphocytes # (Auto) 0.6L, Monocytes # (Auto) 1.1H, Eosinophils # (Auto) 0.1, Basophils # (Auto) 0.0, Immature Granulocyte # (Auto) 0.1, Neutrophils % (Manual) 88, Lymphocytes % (Manual) 8, Monocytes % (Manual) 4, Eosinophils % (Manual) 0, Basophils % (Manual) 0, Band Neutrophils 0, Blood Morphology Comment NORMAL, Erythrocyte Sedimentation Rate 13, Prothrombin Time 15.4H, INR Comment 1.2, Activated Partial Thromboplast Time 29, D-Dimer 0.49, Sodium Level 139, Potassium Level 3.9, Chloride Level 101, Carbon Dioxide Level 22, Anion Gap 16H, Blood Urea Nitrogen 14, Creatinine 1.04, Estimat Glomerular Filtration Rate 52, BUN/Creatinine Ratio 13, Glucose Level 142H, Lactic Acid Level 3.12*H, Calcium Level 7.9L, Corrected Calcium 8.1L, Magnesium Level 1.7, Total Bilirubin 0.9, Aspartate Amino Transf (AST/SGOT) 43H, Alanine Aminotransferase (ALT/SGPT) 63H, Alkaline Phosphatase 93, Total Creatine Kinase 20L, Myoglobin 23.4, Troponin I 0.068H, C-Reactive Protein High Sensitivity 4.60H, B-Type Natriuretic Peptide 253.6H, Total Protein 7.2, Albumin 3.8, Procalcitonin 0.09 05/11/21 18:36: Urine Color YELLOW, Urine Clarity CLEAR, Urine pH 6.0, Urine Specific [place] 1.015L, Urine Protein NEGATIVE, Urine Glucose (UA) NEGATIVE, Urine Ketones NEGATIVE, Urine Nitrite NEGATIVE, Urine Bilirubin NEGATIVE, Urine Urobilinogen 1.0, Urine Leukocyte Esterase NEGATIVE, Urine RBC (Auto) NEGATIVE, Urine RBC NONE, Urine WBC 0-2, Urine Squamous Epithelial Cells NONE, Urine Crystals NONE, Urine Bacteria NEGATIVE, Urine Casts NONE, Urine Mucus NEGATIVE, Urine Culture Indicated CULTURE PENDING 05/11/21 18:55: Lactic Acid Level 1.56 05/11/21 19:33: 05/11/21 22:35: Troponin I 0.092H 05/12/21 04:55: Troponin I 0.067H, White Blood Count 6.7, Red Blood Count 4.08, Hemoglobin 12.4, Hematocrit 38, Mean Corpuscular Volume 93, Mean Corpuscular Hemoglobin 30, Mean Corpuscular Hemoglobin Concent 33, Red Cell Distribution Width 15.1H, Platelet Count 488H, Mean Platelet Volume 9.7, Immature Granulocyte % (Auto) 1, Neutrophils (%) (Auto) 70, Lymphocytes (%) (Auto) 12, Monocytes (%) (Auto) 16H, Eosinophils (%) (Auto) 1, Basophils (%) (Auto) 1, Neutrophils # (Auto) 4.7, Lymphocytes # (Auto) 0.8L, Monocytes # (Auto) 1.0, Eosinophils # (Auto) 0.0, Basophils # (Auto) 0.1, Immature Granulocyte # (Auto) 0.1, Sodium Level 140, Potassium Level 3.9, Chloride Level 106, Carbon Dioxide Level 22, Anion Gap 12, Blood Urea Nitrogen 15, Creatinine 0.99, Estimat Glomerular Filtration Rate 55, BUN/Creatinine Ratio 15, Glucose Level 103, Calcium Level 7.8L, C-Reactive Protein High Sensitivity 8.41H, Triglycerides Level 97, Cholesterol Level 90, LDL Cholesterol Direct 52, VLDL Cholesterol 19, HDL Cholesterol 23L Laboratory Tests 05/11/21 16:40 05/12/21 04:55 A/P-Cardiology Assessment/Admission Diagnosis Minimal troponin elevation, likely due to 1-hour episode of PSVT on 05/11/21 - Paroxysmal supraventricular tachycardia diagnosed and treated in the ER on June 25, 2018, converted with adenosine Fever and chills of undetermined etiology, managed by the [facility] – [place], [place] Nonobstructive coronary artery disease per cardiac catheterization September [address] Hernandez Hyperlipidemia Mild bilateral carotid stenosis, last ultrasound was done in June 2018 Gastroesophageal reflux disease History of cholecystectomy, partial colectomy, bowel repair, bilateral knee replacement. Discussion and Recomendations * Echo today * MPI tomorrow * Monitor labs * Discussed her case with Dr Palmer today APURVA MCGRAW MD [facility] CCDS May 12, 2021 10:28
[2021-05-12] MEDS: ACETAMINOPHEN 500 MG TAB (TYLENOL) PO PRN ×2 (13:32→16:48)
[2021-05-12] MEDS: IBUPROFEN TABLET 200 MG TAB PO PRN (17:59)
[2021-05-12] MEDS ORDERED: ATORVASTATIN 10 MG TABLET PO SCH (21:00)
[2021-05-13] MEDS: ACETAMINOPHEN 500 MG TAB (TYLENOL) PO PRN (01:10)
[2021-05-13 03:30] VITALS: BP 100/55
[2021-05-13 05:23] LABS: HEMATOCRIT 39 % (35-52); HEMOGLOBIN 13.3 g/dL (11.5-16.0); MEAN CORPUSCULAR HEMOGLOBIN 31 pg (25-34); MEAN CORPUSCULAR HGB CONC 34 g/dL (32-36); MEAN CORPUSCULAR VOLUME 91 fL (80-99); MEAN PLATELET VOLUME 9.8 fL (9.0-12.2); PLATELET COUNT 439 10^3/uL (130-400); WHITE BLOOD COUNT 7.5 10^3/uL (4.3-11.0)
[2021-05-13 05:34] LABS: ALBUMIN 2.8 GM/DL (3.2-4.5); POTASSIUM 3.8 MMOL/L (3.6-5.0)
[2021-05-13 05:35] LABS: CALCIUM 7.6 MG/DL (8.5-10.1)
[2021-05-13 05:37] LABS: TOTAL PROTEIN 5.4 GM/DL (6.4-8.2)
[2021-05-13 05:39] LABS: BILIRUBIN,TOTAL 0.9 MG/DL (0.1-1.0)
[2021-05-13 05:40] LABS: CREATININE SERUM 0.95 MG/DL (0.60-1.30)
[2021-05-13 07:21] VITALS: BP 103/56
--- NOTE | 2021-05-13 08:52 | Discharge Summary ---
Diagnosis/Chief Complaint Date of Admission May 11, 2021 at 19:52 Date of Discharge Admission Diagnosis Admission Diagnosis SEPSIS HX OF TICK EXPOSURE/BITES ELEVATED TROPONIN PALPITATIONS CHILLS FEVER THROMBOCYTHEMIA Discharge Diagnosis SEPSIS HX OF TICK EXPOSURE/BITES ELEVATED TROPONIN PALPITATIONS CHILLS FEVER THROMBOCYTHEMIA Reason Hospital Visit PT IS A 70 Y/O FEMALE WHO IS A NEW PATIENT IN MY MEDICAL PRACTICE. SHE REPORTEDLY WAS GETTING READY TO GO TO THE HAIR DRESSERS, FELT HER HEART RACING, WENT BACK INTO HER HOME, PERFORMED VALSALVA AND OTHER MANEUVERS TO GET HER HEART RATE UNDER CONTROL, AND FELT HER HEART EVENTUALLY SETTLE DOWN. HOWEVER SHORTLY THEREAFTER SHE BEGAN TO EXPERIENCE SHAKING CHILLS, AND DEVELOPED A FEVER. SHE CALLED HER SON WHO BROUGHT HER INTO THE HOSPITAL FOR EVALUATION. SHE WAS FOUND TO HAVE A SLIGHTLY ELEVATED TROPONIN ON ER EVAL AND SHE WAS ADMITTED TO THE HOSPITAL WITH POSSIBLE SEPSIS AND RULE OUT OF CARDIAC EVENT. Discharge Summary Discharge Physical Examination Allergies: Coded Allergies: No Known Drug Allergies (Verified , 04/01/19) Vitals & I&Os Vital Signs Date Time Temp Pulse Resp B/P (MAP) Pulse Ox O2 Delivery O2 Flow Rate FiO2 05/13/21 07:21 37.4 73 18 103/56 (72) 97 Room Air Hospital Course SEPSIS HX OF TICK EXPOSURE/BITES ELEVATED TROPONIN PALPITATIONS CHILLS FEVER THROMBOCYTHEMIA SEPSIS WITH HX OF TICK EXPOSURE/BITES - CHECK TICK PANEL - START DOXYCYCLINE - MONITOR CULTURES FOR ORGANISM - TREAT FEVER WITH TYLENOL ELEVATED TROPONIN - CONSULT TO DR. MCGRAW - WILL DO ECHO TODAY - PENDING ECHO WILL CONSIDER STRESS TESTING. PALPITATIONS - RESUME METOPROLOL - MONITOR HEART RATE IN HOSPITAL THROMBOCYTHEMIA - CONTINUE WITH ASA DAILY Pending Labs Laboratory Tests 05/13/21 04:50: White Blood Count 7.5, Red Blood Count 4.35, Hemoglobin 13.3, Hematocrit 39, Mean Corpuscular Volume 91, Mean Corpuscular Hemoglobin 31, Mean Corpuscular Hemoglobin Concent 34, Red Cell Distribution Width 14.9, Platelet Count 439, Mean Platelet Volume 9.8, Sodium Level 140, Potassium Level 3.8, Chloride Level 103, Carbon Dioxide Level 23, Anion Gap 14, Blood Urea Nitrogen 12, Creatinine 0.95, Estimat Glomerular Filtration Rate 58, BUN/Creatinine Ratio 13, Glucose Level 104, Calcium Level 7.6, Corrected Calcium 8.6, Total Bilirubin 0.9, Aspartate Amino Transf (AST/SGOT) 41, Alanine Aminotransferase (ALT/SGPT) 67, Alkaline Phosphatase 90, Total Protein 5.4, Albumin 2.8 Discharge Instructions to patient/family Please see electronic discharge instructions given to patient. Discharge Medications Reviewed and agree with Discharge Medication list on patient's Discharge Instruction sheet SCOTT JOHNSON MD May 13, 2021 08:52
[2021-05-13] MEDS ORDERED: REGADENOSON 0.4 MG/5 ML SYR (LEXISCAN) IV ONE ×2 (09:00→13:44)
[2021-05-13] MEDS ORDERED: LACT1CAP87 PO (09:06)
[2021-05-13] MEDS ORDERED: CLIN300C12 PO (09:06)
[2021-05-13] MEDS ORDERED: CLINDAMYCIN 600 MG/50 ML IVPB 50 ML IV ONE (09:15)
[2021-05-13] MEDS: HYDROXYUREA 500 MG CAP (HYDREA) PO SCH (10:26)
[2021-05-13] MEDS: ASPIRIN E.C. 81 MG (ECOTRIN) TAB PO SCH (10:26)
[2021-05-13] MEDS: PANTOPRAZOLE 40 MG (PROTONIX) TAB PO SCH (10:27)
[2021-05-13] MEDS: OMEGA 3 (FISH OIL) 1000 MG CAP PO SCH (10:27)
[2021-05-13 11:36] VITALS: BP 112/60
--- NOTE | 2021-05-13 12:17 | Cardiology Progress Note ---
Progress Note-Cardiology Events since last exam Date Seen by Provider: May 13, 2021 Time Seen by Provider: 12:16 Events since last exam We are seeing her due to supraventricular tachycardia and elevated troponin level. She denies any further palpitations. She denies chest discomfort, dyspnea, syncope, or ankle edema. Certain portions of this document may have been dictated utilizing voice recognition technology. Inherent to this technology, typographical and grammatical errors may exist. As much as I am diligent to identify and correct these mistakes, some errors may remain in the document. Vitals Last set of Vitals Signs Vital Signs 05/13/21 11:36 Temp 37.1 Pulse 73 Resp 18 B/P (MAP) 112/60 (77) Pulse Ox 95 O2 Delivery Room Air Labs Labs Laboratory Tests 05/13/21 04:50 Exam Vital Signs Vital Signs Date Time Temp Pulse Resp B/P (MAP) Pulse Ox O2 Delivery O2 Flow Rate FiO2 05/13/21 11:36 37.1 73 18 112/60 (77) 95 Room Air Physical Exam General: Alert. No acute distress. Eye: No xanthelasma. HENT: Normocephalic. Neck: Jugular venous pressure does not appear elevated. Respiratory: Lungs are clear to auscultation. Respirations are non-labored. Breath sounds are equal. Symmetrical chest wall expansion. Cardiovascular: Normal rate. Regular rhythm. No murmur. No gallop. No edema. Gastrointestinal: Soft. Normal bowel sounds. Skin: Warm. Dry. Neurologic: Alert and oriented to person, place, time. Cranial nerves 3-11 gr ossly intact. Psychiatric: Cooperative. Appropriate mood & affect. Labs Laboratory Tests Test 05/13/21 04:50 Range/Units White Blood Count 7.5 4.3-11.0 10^3/uL Red Blood Count 4.35 3.80-5.11 10^6/uL Hemoglobin 13.3 11.5-16.0 g/dL Hematocrit 39 35-52 % Mean Corpuscular Volume 91 80-99 fL Mean Corpuscular Hemoglobin 31 25-34 pg Mean Corpuscular Hemoglobin Concent 34 32-36 g/dL Red Cell Distribution Width 14.9 H 10.0-14.5 % Platelet Count 439 H 130-400 10^3/uL Mean Platelet Volume 9.8 9.0-12.2 fL Sodium Level 140 135-145 MMOL/L Potassium Level 3.8 3.6-5.0 MMOL/L Chloride Level 103 98-107 MMOL/L Carbon Dioxide Level 23 21-32 MMOL/L Anion Gap 14 5-14 MMOL/L Blood Urea Nitrogen 12 7-18 MG/DL Creatinine 0.95 0.60-1.30 MG/DL Estimat Glomerular Filtration Rate 58 BUN/Creatinine Ratio 13 Glucose Level 104 70-105 MG/DL Calcium Level 7.6 L 8.5-10.1 MG/DL Corrected Calcium 8.6 8.5-10.1 MG/DL Total Bilirubin 0.9 0.1-1.0 MG/DL Aspartate Amino Transf (AST/SGOT) 41 H 5-34 U/L Alanine Aminotransferase (ALT/SGPT) 67 H 0-55 U/L Alkaline Phosphatase 90 40-136 U/L Total Protein 5.4 L 6.4-8.2 GM/DL Albumin 2.8 L 3.2-4.5 GM/DL Diagnosis/Problems Diagnosis/Problems (1) Elevated troponin Status: Acute Assessment & Plan: Her troponin level was mildly elevated. This was possibly a type II non-ST elevation myocardial infarction due to supraventricular tachycardia. She has no further symptoms. In light of her known, previous mild coronary artery disease we will proceed with a stress test later today. If this is unremarkable, she can be discharged home later today. She should continue on aspirin, beta-alida, and statin medication. (2) Supraventricular tachycardia Assessment & Plan: No signs of recurrence. She has been stable on beta-ailda until this recent episode. She believes this may have been brought on by severe seasonal allergies. (3) Coronary artery disease without angina pectoris Assessment & Plan: She had mild coronary artery disease at the time of cardiac catheterization in the past. She does not appear to be having any angina at this point in time. As above, in light of the elevated troponin level, we will proceed with a stress test. She should continue on guideline directed medical therapy with aspirin, beta-alida, and statin medication. (4) Mixed hyperlipidemia Assessment & Plan: Continue statin. JANA GOMEZ JR, MD May 13, 2021 12:17
[2021-05-13] MEDS ORDERED: LACTOBACILLUS ACIDOPHILUS (PROBIOTIC) CAPSULE PO SCH (13:00)
[2021-05-13 13:48] VITALS: BP 102/66
--- NOTE | 2021-05-13 15:44 | NUCLEAR STRESS TEST ---
REGADENOSON NUCLEAR STRESS Date of procedure: 05/13/2021. Primary care provider: Marivel Palmer MD Admitting physician: Marivel Palmer MD. INDICATION: Abnormal troponin level. BASELINE ELECTROCARDIOGRAM: Sinus rhythm with diffusely low voltage and poor R wave progression. STRESS TEST PROCEDURE: The patient was administered 0.4 mg of intravenous Regadenoson. The resting heart rate was 79 bpm and the peak heart rate was 111 bpm. The resting blood pressure was 102/66 mmHg and the minimum blood pressure was 102/66 mmHg. This represents a normal heart rate and a blunted blood pressure response to Regadenoson. The test was stopped due to the protocol. There was no chest discomfort during the test. There were no arrhythmias during the test. There were no significant stress induced electrocardiogram changes. NUCLEAR PROCEDURE: The patient was administered 11 mCi of intravenous technetium 99m Tetrofosmin at rest for the rest images. The patient was subsequently administered 32.3 mCi of intravenous technetium 99m Tetrofosmin at peak stress for the stress images. Following an appropriate wait after each injection, imaging was obtained. The images were subsequently processed and reformatted in the usual views. Gated imaging was obtained. The image quality was poor with significant motion artifact as well as the patient put both of her arms down by her side. CT attenuation correction was used as a adjunct to standard imaging. Both the corrected and uncorrected images were reviewed for interpretation. NUCLEAR RESULTS: There was a moderate sized, severe intensity, fixed basal to apical inferior defect with no ischemia. There was normal left ventricular chamber size with an end-diastolic volume of 46 mL and an end-systolic volume of 11 mL. There was no evidence of transient ischemic dilatation. The TID ratio was 1. There was inferior hypokinesis and a calculated ejection fraction of 75%. IMPRESSION: 1. Normal heart rate and a blunted blood pressure response to regadenoson. 2. There was no chest discomfort, arrhythmias, or electrocardiogram changes during the test. 3. There was a moderate sized, severe intensity, fixed basal to apical inferior defect with no evidence of ischemia. This entire defect corrected completely with CT attenuation correction. This could be due to artifact. However, even if this is a true defect, there is no evidence of ischemia. 4. There was inferior hypokinesis and overall normal left ventricular systolic function with a calculated ejection fraction of 75%. 5. This is an abnormal result although represents a low risk for future cardiac events. Certain portions of this document may have been dictated utilizing voice recognition technology. Inherent to this technology, typographical and grammatical errors may exist. As much as I am diligent to identify and correct these mistakes, some errors may remain in the document. JANA GOMEZ JR, MD May 13, 2021 15:44
[2021-05-13 16:00] VITALS: BP 118/70
== END 2021-05-13 16:05 | disposition home or self-care (01) ==
LOC: EDUNIT# 16:05 → ER 16:07 → 4TH 19:52 → UNDOADMOB 19:52 → 4TH 21:37 → UNDODISOB 05-13 16:05
PROVIDERS: ADMIT Family Medicine; ATTEND Family Medicine
DX: A41.9 Sepsis, unspecified organism (principal); R50.9 Fever, unspecified; R74.8 Abnormal levels of other serum enzymes; R06.02 Shortness of breath; R00.2 Palpitations; D69.6 Thrombocytopenia, unspecified; E78.00 Pure hypercholesterolemia, unspecified; K21.9 Gastro-esophageal reflux disease without esophagitis; M19.90 Unspecified osteoarthritis, unspecified site; Z86.19 Personal history of other infectious and parasitic diseases; Z20.822 Contact with and (suspected) exposure to COVID-19; Z79.82 Long term (current) use of aspirin; Z79.899 Other long term (current) drug therapy; Z80.8 Family history of malignant neoplasm of other organs or systems; Z82.49 Family history of ischemic heart disease and other diseases of the circulatory system
CPT/HCPCS: 71045; 78452; 80048; 80053 ×2; 80061; 81000; 82550; 83605; 83735; 83874; 83880; 84145; 84484 ×2; 85007; 85025; 85027 ×2; 85379; 85610; 85652; 85730; 86141 ×2; 86618; 86666 ×2; 86668; 86757 ×2; 87040; 87088; 87636; 93005; 93017; 93041; 93306; 96361; 96374; 99284; A9502; G0378; 36415

== ENCOUNTER 2021-05-17 10:19 | Outpatient (CLI) | payer MEDICARE, OTHER ==
[~2021-05-17] VITALS: Ht 165.1 cm; Wt 76.6 kg
[~2021-05-17 10:19] MED LIST changes: +ALEN70TA80 PO; +CLIN300C12 PO; +HYDR500C2 PO; +LACT1CAP87 PO; +OMEG-154 PO
[2021-05-17] MEDS ORDERED: NS IV 1000 ML 1,000 ML ONE (11:49)
[2021-05-17] MEDS ORDERED: ONDANSETRON 4 MG/2 ML (SDV) Z0FRAN ONE (11:50)
[2021-05-17] MEDS ORDERED: ONDANSETRON 4 MG/2 ML (SDV) Z0FRAN IVP NR (12:30)
[2021-05-17] MEDS ORDERED: NS IV 1000 ML 1,000 ML IV SCH (12:30)
[2021-05-17 13:15] VITALS: BP 100/60
== END 2021-05-17 13:15 | disposition home or self-care (01) ==
LOC: SDC 10:19
PROVIDERS: ATTEND Family Medicine
DX: R11.2 Nausea with vomiting, unspecified (principal)
CPT/HCPCS: 96360; 96374

== ENCOUNTER 2021-06-01 13:19 | Outpatient (RCR) | payer MEDICARE, OTHER ==
[2021-03-08 09:52] LABS: BASOPHILS # (AUTO) 0.1 10^3/uL (0.0-0.1); BASOPHILS % (AUTO) 2 % (0-10); EOSINOPHILS # (AUTO) 0.3 10^3/uL (0.0-0.3); EOSINOPHILS % (AUTO) 4 % (0-10); HEMATOCRIT 46 % (35-52); HEMOGLOBIN 15.1 g/dL (11.5-16.0); LYMPHOCYTES # (AUTO) 1.6 10^3/uL (1.0-4.0); LYMPHOCYTES % (AUTO) 26 % (12-44); MEAN CORPUSCULAR HEMOGLOBIN 30 pg (25-34); MEAN CORPUSCULAR HGB CONC 33 g/dL (32-36); MEAN CORPUSCULAR VOLUME 91 fL (80-99); MEAN PLATELET VOLUME 9.9 fL (9.0-12.2); MONOCYTES # (AUTO) 0.8 10^3/uL (0.0-1.0); MONOCYTES % (AUTO) 13 % (0-12); NEUTROPHILS # (AUTO) 3.4 10^3/uL (1.8-7.8); NEUTROPHILS % (AUTO) 55 % (42-75); PLATELET COUNT 691 10^3/uL (130-400); WHITE BLOOD COUNT 6.2 10^3/uL (4.3-11.0)
[2021-03-08 10:14] LABS: ALBUMIN 3.8 GM/DL (3.2-4.5); BILIRUBIN,TOTAL 0.7 MG/DL (0.1-1.0); CALCIUM 8.7 MG/DL (8.5-10.1); CREATININE SERUM 0.97 MG/DL (0.60-1.30); POTASSIUM 4.1 MMOL/L (3.6-5.0); TOTAL PROTEIN 6.9 GM/DL (6.4-8.2)
[2021-06-01 13:34] LABS: BASOPHILS # (AUTO) 0.1 10^3/uL (0.0-0.1); BASOPHILS % (AUTO) 1 % (0-10); EOSINOPHILS # (AUTO) 0.1 10^3/uL (0.0-0.3); EOSINOPHILS % (AUTO) 1 % (0-10); HEMATOCRIT 42 % (35-52); HEMOGLOBIN 13.8 g/dL (11.5-16.0); LYMPHOCYTES # (AUTO) 1.1 10^3/uL (1.0-4.0); LYMPHOCYTES % (AUTO) 14 % (12-44); MEAN CORPUSCULAR HEMOGLOBIN 31 pg (25-34); MEAN CORPUSCULAR HGB CONC 33 g/dL (32-36); MEAN CORPUSCULAR VOLUME 95 fL (80-99); MEAN PLATELET VOLUME 9.4 fL (9.0-12.2); MONOCYTES # (AUTO) 1.1 10^3/uL (0.0-1.0); MONOCYTES % (AUTO) 15 % (0-12); NEUTROPHILS # (AUTO) 5.4 10^3/uL (1.8-7.8); NEUTROPHILS % (AUTO) 69 % (42-75); PLATELET COUNT 653 10^3/uL (130-400); WHITE BLOOD COUNT 7.9 10^3/uL (4.3-11.0)
[2021-06-01 13:51] LABS: ALBUMIN 3.5 GM/DL (3.2-4.5); BILIRUBIN,TOTAL 1.2 MG/DL (0.1-1.0); CALCIUM 9.3 MG/DL (8.5-10.1); CREATININE SERUM 1.09 MG/DL (0.60-1.30); POTASSIUM 4.3 MMOL/L (3.6-5.0)
== END 2021-06-06 | disposition home or self-care (01) ==
LOC: ONC 13:19
PROVIDERS: ATTEND Internal Medicine Hematology & Oncology
DX: D47.3 Essential (hemorrhagic) thrombocythemia (principal); I25.10 Atherosclerotic heart disease of native coronary artery without angina pectoris; K21.9 Gastro-esophageal reflux disease without esophagitis; E78.2 Mixed hyperlipidemia
CPT/HCPCS: 80053; 81270; 85025; G0463; 99213; 99214

== ENCOUNTER 2021-06-20 17:00 | Inpatient (IN) | payer MEDICARE, OTHER ==
[~2021-06-20] VITALS: Ht 165.1 cm; Wt 63.0 kg
[2021-06-20] MEDS ORDERED: ACETAMINOPHEN 500 MG TAB (TYLENOL) ONE (17:28)
[2021-06-20] MEDS ORDERED: ONDANSETRON 4 MG/2 ML (SDV) Z0FRAN ONE (17:29)
[2021-06-20 17:40] LABS: BASOPHILS # (AUTO) 0.1 10^3/uL (0.0-0.1); BASOPHILS % (AUTO) 1 % (0-10); EOSINOPHILS % (AUTO) 0 % (0-10); HEMATOCRIT 44 % (35-52); HEMOGLOBIN 14.5 g/dL (11.5-16.0); LYMPHOCYTES # (AUTO) 0.4 10^3/uL (1.0-4.0); LYMPHOCYTES % (AUTO) 4 % (12-44); MEAN CORPUSCULAR HEMOGLOBIN 32 pg (25-34); MEAN CORPUSCULAR HGB CONC 33 g/dL (32-36); MEAN CORPUSCULAR VOLUME 96 fL (80-99); MEAN PLATELET VOLUME 9.4 fL (9.0-12.2); MONOCYTES # (AUTO) 0.6 10^3/uL (0.0-1.0); MONOCYTES % (AUTO) 8 % (0-12); NEUTROPHILS # (AUTO) 7.1 10^3/uL (1.8-7.8); NEUTROPHILS % (AUTO) 86 % (42-75); PLATELET COUNT 559 10^3/uL (130-400); WHITE BLOOD COUNT 8.2 10^3/uL (4.3-11.0)
[2021-06-20] MEDS ORDERED: ACETAMINOPHEN 500 MG TAB (TYLENOL) PO ONE (17:45)
[2021-06-20] MEDS ORDERED: ONDANSETRON 4 MG/2 ML (SDV) Z0FRAN IVP ONE ×2 (17:45→20:15)
[2021-06-20 18:01] LABS: ALBUMIN 3.5 GM/DL (3.2-4.5); POTASSIUM 4.2 MMOL/L (3.6-5.0)
[2021-06-20 18:02] LABS: ANISOCYTOSIS MODERATE; BAND NEUTROPHILS 0 %; BASOPHILS % (MANUAL) 0 %; CALCIUM 8.6 MG/DL (8.5-10.1); EOSINOPHILS % (MANUAL) 0 %; LYMPHOCYTES % (MANUAL) 4 %; MONOCYTES % (MANUAL) 14 %; NEUTROPHILS % (MANUAL) 82 %
[2021-06-20 18:03] LABS: TOTAL PROTEIN 6.9 GM/DL (6.4-8.2)
[2021-06-20 18:05] LABS: BILIRUBIN,TOTAL 1.2 MG/DL (0.1-1.0)
[2021-06-20 18:07] LABS: CREATININE SERUM 1.07 MG/DL (0.60-1.30)
[2021-06-20 18:09] LABS: INR 1.1 (0.8-1.4); PROTHROMBIN TIME PATIENT 14.4 SEC (12.2-14.7)
[2021-06-20] MEDS ORDERED: LACTATED RINGERS 2,000 ML IV ONE (18:26)
--- NOTE | 2021-06-20 18:41 | Diagnostic Imaging Report ---
CHEST 1 VIEW, AP/PA ONLY Indication: Sepsis Comparison: 05/11/2021 Findings: No focal airspace disease in the visualized lungs. Please note that the posterior lower lobes are poorly evaluated by portable radiography. No pleural effusion or pneumothorax. Normal cardiomediastinal silhouette. Impression: 1. No acute cardiopulmonary process by portable radiography. Dictated by: Dictated on workstation # [id number]
[2021-06-20] MEDS ORDERED: LACTATED RINGERS 1,000 ML IV STA (18:53)
--- NOTE | 2021-06-20 18:59 | ED General ---
General Chief Complaint: Fever-Adult/Adol Stated Complaint: LETHARGIC/SHAKING/NAUSEA Nursing Triage Note: PT AMB TO RM 10 WITH COMPLAINT OF NAUSEA, SHAKING, AND GENERAL MALAISE. PT STATES SHE HAD SIMILAR SYMPTOMS ABOUT A MONTH AGO. REPORTS THEY THOUGHT INITAL SYMPTOMS WERE DUE TO DENTAL INFECTION. STATES SHE HAD TEETH PULLED. DENIES URINARY OR RESPIRATORY SYMPTOMS. REPORTS THAT SHE HAS LOST APPROX 15LBS AND HAIR LOSS SINCE INITIAL ONSET OF SYMPTOMS. Source of Information: Patient Exam Limitations: No Limitations History of Present Illness Date Seen by Provider: Jun 20, 2021 Time Seen by Provider: 18:00 Initial Comments Here with report of nausea, shaking, chills, fever, vomiting and overall not feeling well. This has been intermittent over the last month and a half. She said quite a bit of work-up and has not had any significant findings. Arrives with fever of 39.9 Celsius. She states that she had profound fatigue yesterday after going to a but had been a bit nauseated and had some diarrhea over the last 2 days. Overall she is not sure what is going on and they have not found underlying cause of her symptoms over the last month and a half despite work-up. She is vaccinated for Covid and has had multiple Covid test that are negative. Timing/Duration: 2-3 Days, Intermittent (Last 6 weeks) Severity: Moderate Associated Systoms: No Cough; Fever/Chills, Headaches, Malaise, Nausea/Vomiting; No Shortness of Air; Weakness Allergies and Home Medications Allergies Coded Allergies: ciprofloxacin (Verified Allergy, Unknown, 06/20/21) Patient Home Medication List Home Medication List Reviewed: Yes Aspirin (Aspirin EC) 81 Mg Tablet.dr, 81 MG PO DAILY, (Reported) Entered as Reported by: ARIANE CHRISTINE on 09/20/17 120 Last Action: Continued Atorvastatin Calcium (Atorvastatin Calcium) 10 Mg Tablet, 10 MG PO DAILY, (Reported) Entered as Reported by: ARIANE CHRISTINE on 09/20/17 120 Last Action: Held Hydroxyurea (Hydroxyurea) 500 Mg Capsule, 500 MG PO DAILY, (Reported) Entered as Reported by: CHARLIE GIBBS on 05/12/21 0846 Last Action: Held Magnesium Citrate (Magnesium Citrate) 100 Mg Tablet, 250 MG PO DAILY, (Reported) Entered as Reported by: GLENNA FOX on 06/21/21 0751 Last Action: Held Metoprolol Succinate (Metoprolol Succinate) 25 Mg Tab.er.24h, 25 MG PO DAILY, (Reported) Entered as Reported by: YONATHAN IGNACIO on 03/28/19 1408 Last Action: Held [place]-3S/Dha/Epa/Fish Oil (Fish Oil [place]-3 Softgel) 1 Each Capsule.dr, 2 EACH PO DAILY, (Reported) Entered as Reported by: CHARLIE GIBBS on 05/12/21 0846 Last Action: Held Pantoprazole Sodium (Protonix) 40 Mg Tablet.dr, 40 MG PO DAILY, (Reported) Entered as Reported by: ARIANE CHRISTINE on 09/20/17 1203 Last Action: Continued Discontinued Medications Alendronate Sodium (Alendronate Sodium) 70 Mg Tablet, 70 MG PO SUN, (Reported) Entered as Reported by: CHARLIE GIBBS on 05/12/21 0848 Last Action: Discontinued Clindamycin HCl (Clindamycin HCl) 300 Mg Capsule, 300 MG PO TID Prescribed by: SCOTT PALMER on 05/13/21 09 Last Action: Discontinued Lactobacillus Acidophilus (Acidophilus Lactobacilli) 1 Each Capsule, 1 EACH PO TID Discontinued Reason: No Longer Taking Prescribed by: SCOTT PALMER on 05/13/21905 Last Action: Discontinued Review of Systems Review of Systems Constitutional: see HPI, chills, fever, malaise, weakness EENTM: nose congestion; No throat pain Respiratory: No cough, No short of breath Cardiovascular: No chest pain, No edema Gastrointestinal: No abdominal pain; diarrhea, nausea, vomiting Genitourinary: no symptoms reported Musculoskeletal: No muscle pain; muscle weakness Skin: no symptoms reported Psychiatric/Neurological: No Symptoms Reported All Other Systems Reviewed Negative Unless Noted: Yes Past Meicnxt-Uaaldm-Xmqcxj Hx Patient Social History Tobacco Use?: No Use of E-Cig and/or Vaping dev: No Substance use?: No Alcohol Use?: No Pt feels they are or have been: No Immunizations Up To Date Tetanus Booster (TDap): Unknown First/Initial COVID19 Vaccinat: 11/27/20 Second COVID19 Vaccination Anibal: 12/25/20 Seasonal Allergies Seasonal Allergies: Yes Past Medical History Surgeries: Yes (c/s x3, bilat TKR, colon resection with colostomy then reversal, ) Abdominal, Bowel Surgery, Cardiac, Section, Gallbladder, Joint Replacement, Orthopedic Respiratory: No Currently Using CPAP: No Currently Using BIPAP: No Cardiac: Yes (PSVT; ) High Cholesterol, Irregular Heartbeat Neurological: No 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 Genitourinary: No Gastrointestinal: Yes (S/P COLON RESECTION FOR OBSTRUCTION; OPEN CHOLECYSTECTOMY) Gastroesophageal Reflux, Obstructive Bowel Musculoskeletal: Yes (DJD) Arthritis Endocrine: No HEENT: No Cancer: No Psychosocial: No Integumentary: No Blood Disorders: No Adverse Reaction/Blood Tranf: No Family Medical History Reviewed Nursing Family Hx Cancer 19 MOTHER (LARYNX AND SPINE ) Family history: Cardiovascular disease 19 FATHER Physical Exam-Suspected Sepsis Physical Exam Vital Signs Vital Signs - First Documented 06/20/21 17:19 Temp 39.9 Pulse 112 Resp 13 B/P (MAP) 139/50 (79) Pulse Ox 97 O2 Delivery Room Air Capillary Refill : Less Than 3 Seconds Blood Pressure Mean: 79 Height, Weight, BMI Height: 5'5.00" Weight: 160lbs. 0.0oz. [id number]; 24.00 BMI Method:Stated General Appearance: No Apparent Distress, WD/WN HEENT: PERRL/EOMI, Pharynx Normal, Other (Rhinorrhea noted) Neck: Non Tender, Supple Respiratory: Lungs Clear, Normal Breath Sounds Cardiovascular: No Murmur, Tachycardia Gastrointestinal: Non Tender, Soft Back: Normal Inspection, No CVA Tenderness, No Vertebral Tenderness Extremity: Normal Range of Motion, Non Tender Neurologic/Psychiatric: Alert, Oriented x3 Skin: normal color, warm/dry Focused Exam Lactate Level 06/20/21 23:15: Lactic Acid Level 2.16*H 06/21/21 05:17: Lactic Acid Level 1.15 06/21/21 10:08: Lactic Acid Level 1.39 Lactic Acid Level Progress/Results/Core Measures Suspected Sepsis SIRS Temperature: Pulse: 112 Respiratory Rate: 13 Laboratory Tests 06/20/21 17:24: White Blood Count 8.2 06/21/21 05:17: White Blood Count 8.2 Blood Pressure 139 /50 Mean: 79 06/20/21 23:15: Lactic Acid Level 2.16*H 06/21/21 05:17: Lactic Acid Level 1.15 06/21/21 10:08: Lactic Acid Level 1.39 Laboratory Tests 06/20/21 17:24: Creatinine 1.07, INR Comment 1.1, Platelet Count 559H, Total Bilirubin 1.2H 06/21/21 05:17: Creatinine 0.92, Platelet Count 594H, Total Bilirubin 0.9 Results/Orders Lab Results Laboratory Tests Test 06/20/21 17:24 06/20/21 19:19 06/20/21 20:34 06/20/21 23:15 Range/Units White Blood Count 8.2 4.3-11.0 10^3/uL Red Blood Count 4.56 3.80-5.11 10^6/uL Hemoglobin 14.5 11.5-16.0 g/dL Hematocrit 44 35-52 % Mean Corpuscular Volume 96 80-99 fL Mean Corpuscular Hemoglobin 32 25-34 pg Mean Corpuscular Hemoglobin Concent 33 32-36 g/dL Red Cell Distribution Width 18.3 H 10.0-14.5 % Platelet Count 559 H 130-400 10^3/uL Mean Platelet Volume 9.4 9.0-12.2 fL Immature Granulocyte % (Auto) 1 % Neutrophils (%) (Auto) 86 H 42-75 % Lymphocytes (%) (Auto) 4 L 12-44 % Monocytes (%) (Auto) 8 0-12 % Eosinophils (%) (Auto) 0 0-10 % Basophils (%) (Auto) 1 0-10 % Neutrophils # (Auto) 7.1 1.8-7.8 10^3/uL Lymphocytes # (Auto) 0.4 L 1.0-4.0 10^3/uL Monocytes # (Auto) 0.6 0.0-1.0 10^3/uL Eosinophils # (Auto) 0.0 0.0-0.3 10^3/uL Basophils # (Auto) 0.1 0.0-0.1 10^3/uL Immature Granulocyte # (Auto) 0.1 0.0-0.1 10^3/uL Neutrophils % (Manual) 82 % Lymphocytes % (Manual) 4 % Monocytes % (Manual) 14 % Eosinophils % (Manual) 0 % Basophils % (Manual) 0 % Band Neutrophils 0 % Anisocytosis MODERATE Prothrombin Time 14.4 12.2-14.7 SEC INR Comment 1.1 0.8-1.4 Activated Partial Thromboplast Time 32 24-35 SEC Sodium Level 131 L 135-145 MMOL/L Potassium Level 4.2 3.6-5.0 MMOL/L Chloride Level 98 98-107 MMOL/L Carbon Dioxide Level 16 L 21-32 MMOL/L Anion Gap 17 H 5-14 MMOL/L Blood Urea Nitrogen 19 H 7-18 MG/DL Creatinine 1.07 0.60-1.30 MG/DL Estimat Glomerular Filtration Rate 50 BUN/Creatinine Ratio 18 Glucose Level 198 H 70-105 MG/DL Lactic Acid Level 5.08 *H 3.11 *H 2.16 *H 0.50-2.00 MMOL/L Calcium Level 8.6 8.5-10.1 MG/DL Corrected Calcium 9.0 8.5-10.1 MG/DL Total Bilirubin 1.2 H 0.1-1.0 MG/DL Aspartate Amino Transf (AST/SGOT) 89 H 5-34 U/L Alanine Aminotransferase (ALT/SGPT) 75 H 0-55 U/L Alkaline Phosphatase 224 H 40-136 U/L Troponin I < 0.028 <0.028 NG/ML C-Reactive Protein High Sensitivity 7.96 H 0.00-0.50 MG/DL Total Protein 6.9 6.4-8.2 GM/DL Albumin 3.5 3.2-4.5 GM/DL Procalcitonin 0.48 H <0.10 NG/ML TSH [place] Testing 0.37 0.35-4.94 UIU/ML Influenza Type A (RT-PCR) Not Detected Not Detecte Influenza Type B (RT-PCR) Not Detected Not Detecte SARS-CoV-2 RNA (RT-PCR) Not Detected Not Detecte Urine Color YELLOW Urine Clarity CLEAR Urine pH 6.0 5-9 Urine Specific [place] 1.020 1.016-1.022 Urine Protein NEGATIVE NEGATIVE Urine Glucose (UA) NEGATIVE NEGATIVE Urine Ketones 2+ H NEGATIVE Urine Nitrite NEGATIVE NEGATIVE Urine Bilirubin NEGATIVE NEGATIVE Urine Urobilinogen 0.2 < = 1.0 MG/DL Urine Leukocyte Esterase NEGATIVE NEGATIVE Urine RBC (Auto) NEGATIVE NEGATIVE Urine RBC NONE /HPF Urine WBC 2-5 /HPF Urine Crystals PRESENT H /LPF Urine Amorphous Sediment FEW [place] URATES H /LPF Urine Bacteria TRACE /HPF Urine Casts NONE /LPF Urine Mucus SMALL H /LPF Urine Culture Indicated CULTURE PENDING Test 06/21/21 05:17 06/21/21 10:08 Range/Units White Blood Count 8.2 4.3-11.0 10^3/uL Red Blood Count 4.60 3.80-5.11 10^6/uL Hemoglobin 14.8 11.5-16.0 g/dL Hematocrit 48 35-52 % Mean Corpuscular Volume 105 H 80-99 fL Mean Corpuscular Hemoglobin 32 25-34 pg Mean Corpuscular Hemoglobin Concent 31 L 32-36 g/dL Red Cell Distribution Width 20.0 H 10.0-14.5 % Platelet Count 594 H 130-400 10^3/uL Mean Platelet Volume 10.3 9.0-12.2 fL Immature Granulocyte % (Auto) 1 % Neutrophils (%) (Auto) 87 H 42-75 % Lymphocytes (%) (Auto) 6 L 12-44 % Monocytes (%) (Auto) 6 0-12 % Eosinophils (%) (Auto) 0 0-10 % Basophils (%) (Auto) 1 0-10 % Neutrophils # (Auto) 7.1 1.8-7.8 10^3/uL Lymphocytes # (Auto) 0.5 L 1.0-4.0 10^3/uL Monocytes # (Auto) 0.5 0.0-1.0 10^3/uL Eosinophils # (Auto) 0.0 0.0-0.3 10^3/uL Basophils # (Auto) 0.0 0.0-0.1 10^3/uL Immature Granulocyte # (Auto) 0.1 0.0-0.1 10^3/uL Neutrophils % (Manual) 88 % Lymphocytes % (Manual) 6 % Monocytes % (Manual) 4 % Band Neutrophils 2 % Percent Immature Platelet Fraction 3.5 0.0-7.6 % Hypochromasia MARKED Acanthocytes MARKED Blood Morphology Comment NA Absolute Reticulocyte Count 92 H 24-90 10e9/uL Percent Reticulocyte Count 2.00 0.50-2.40 % Sodium Level 134 L 135-145 MMOL/L Potassium Level 3.6 3.6-5.0 MMOL/L Chloride Level 103 98-107 MMOL/L Carbon Dioxide Level 23 21-32 MMOL/L Anion Gap 8 5-14 MMOL/L Blood Urea Nitrogen 15 7-18 MG/DL Creatinine 0.92 0.60-1.30 MG/DL Estimat Glomerular Filtration Rate 60 BUN/Creatinine Ratio 16 Glucose Level 112 H 70-105 MG/DL Lactic Acid Level 1.15 1.39 0.50-2.00 MMOL/L Calcium Level 7.7 L 8.5-10.1 MG/DL Corrected Calcium 8.8 8.5-10.1 MG/DL Phosphorus Level 3.1 2.3-4.7 MG/DL Magnesium Level 1.8 1.6-2.4 MG/DL Total Bilirubin 0.9 0.1-1.0 MG/DL Aspartate Amino Transf (AST/SGOT) 127 H 5-34 U/L Alanine Aminotransferase (ALT/SGPT) 88 H 0-55 U/L Alkaline Phosphatase 189 H 40-136 U/L Total Protein 5.1 L 6.4-8.2 GM/DL Albumin 2.6 L 3.2-4.5 GM/DL Amylase Level 55 25-125 U/L Lipase 34 8-78 U/L Thyroid Stimulating Hormone (TSH) 0.45 0.35-4.94 UIU/ML Free Thyroxine 1.47 0.70-1.48 NG/DL Micro Results Microbiology 06/21/21 C. difficile GDH Antigen & Toxins - Final, Resulted 06/21/21 Stool Culture, Resulted Pending 06/20/21 Blood Culture - Preliminary, Resulted No growth 06/20/21 Blood Culture - Preliminary, Resulted No growth My Orders Orders - MERCY JEAN BAPTISTE MD Lactated Ringers (Lr 1000 Ml Iv Solution (06/20/21 18:26) Ed Iv/Invasive Line Start (06/20/21 18:53) Lactated Ringers (Lr 1000 Ml Iv Solution (06/20/21 19:00) Lactated Ringers (Lr 1000 Ml Iv Solution (06/20/21 18:53) Thyroid Analyzer (06/20/21 18:59) Ekg Tracing (06/20/21 18:59) Troponin I (06/20/21 18:59) Lactated Ringers (Lr 1000 Ml Iv Solution (06/20/21 20:15) Ondansetron Injection (Zofran Injectio (06/20/21 20:15) Famotidine Injection (Pepcid Injection) (06/20/21 20:10) Piperacillin Sodium/Tazobactam (Zosyn Vi (06/20/21 20:15) Ct Abdomen/Pelvis W (06/20/21 20:15) Ct Head Wo (06/20/21 20:15) Tick Panel With Lyme Eia (06/20/21 20:15) Doxycycline Injection (Vibramycin Inject (06/20/21 20:15) Iohexol Injection (Omnipaque 350 Mg/Ml 1 (06/20/21 20:45) Received Contrast (Hold Metformin- Contr (06/20/21 20:45) Ns (Ivpb) (Sodium Chloride 0.9% Ivpb Bag (06/20/21 20:45) Medications Given in ED Vital Signs/I&O 06/21/21 06/21/21 06/21/21 06/21/21 11:57 12:00 16:00 19:52 Temp 36.6 37.0 36.7 Pulse 83 80 82 Resp 15 16 18 B/P (MAP) 141/67 123/64 129/63 Pulse Ox 93 95 O2 Delivery Room Air Room Air Room Air 06/21/21 20:38 O2 Delivery Room Air 06/21/21 00:00 Intake Total 2000 ml Balance 2000 ml Capillary Refill : Less Than 3 Seconds Blood Pressure Mean: 79 Progress Note : Progress Note Initially seen by med student with report to me. I have seen and evaluated the patient. IV, labs, chest x-ray, EKG, Covid testing, UA with sepsis protocol initiated. LR 2 L bolus ordered after initial lactic acid 5. This will give 30 mL/kg IV bolus. 1855: Source still not clearly identified for infection. Covid is negative. Chest x-ray is negative. UA is pending. Monitor patient. 2011: I did discuss the case with Dr. Palmer. We will go ahead and get CT of the head as well as CT abdomen and pelvis with contrast. We have added tick panel as several family members of hers have had tickborne diseases. We will initiate Zosyn 4.5 g IV as well as doxycycline 100 mg IV. Patient's blood pressure ranging down to the 80s systolic. Patient is getting second liter of fluid now. 2131: CT scans showed no acute findings. Antibiotics have been initiated. Lactic acid down to 3. Blood pressure remaining above 90 systolic. Patient will be admitted to the ICU. Dr. Palmer accepts patient for admission, inpatient status. We will continue Zosyn for sepsis concerns as well as doxycycline for tickborne illness. Patient and family informed and agree with plan. ECG Initial ECG Impression Date: Jun 20, 2021 Initial ECG Impression Time: 19:08 Initial ECG Rate: 86 Initial ECG Rhythm: Normal Sinus Comment Sinus rhythm with normal but leftward axis. No evidence of ST elevation [place]. Similar to previous of 12/26/2018. Interpreted by me. Diagnostic Imaging Diagonstic Imaging: Xray Plain Films/CT/US/NM/MRI: chest [facility]. [place], [place] NAME: [facility] REC#: [id number] PT STATUS: REG ER : 1950 PHYSICIAN: VENU HAYDEN MD ADMIT DATE: 06/20/21/ER Signed Date of Exam:06/20/21 CHEST 1 VIEW, AP/PA ONLY CHEST 1 VIEW, AP/PA ONLY Indication: Sepsis Comparison: 05/11/2021 Findings: No focal airspace disease in the visualized lungs. Please note that the posterior lower lobes are poorly evaluated by portable radiography. No pleural effusion or pneumothorax. Normal cardiomediastinal silhouette. Impression: 1. No acute cardiopulmonary process by portable radiography. Dictated by: Dictated on workstation # [id number] Dict: 06/20/21 183 Trans: 06/20/211839 [facility] [id number] Interpreted by: DHRUV MONTES MD Electronically signed by: DHRUV MONTES MD 06/20/211839 Diagonstic Imaging: CT Plain Films/CT/US/NM/MRI: head Comments [facility], [facility]. [place], [place] NAME: [facility] REC#: [id number] PT STATUS: REG ER : 1950 PHYSICIAN: MERCY JEAN BAPTISTE MD ADMIT DATE: 06/20/21/ER Draft Date of Exam:06/20/21 CT HEAD WO PROCEDURE: CT head without contrast. TECHNIQUE: Multiple contiguous axial images were obtained through the brain without the use of intravenous contrast. Auto Exposure Controls were utilized during the CT exam to meet ALARA standards for radiation dose reduction. INDICATION: Vomiting and diarrhea. Unintentional weight loss. Shaking. COMPARISON: 12/26/2018. FINDINGS: No intracranial hyperdense hemorrhage or space-occupying mass. No hydrocephalus or midline shift. Lazar-white matter differentiation is well preserved. No skull fracture. Basilar cisterns are widely patent. Paranasal sinuses and mastoid air cells are clear. IMPRESSION: No acute intracranial process by CT. Dictated on workstation # [id number] Dict: 06/20/212112 Trans: 06/20/212117 [id number] [id number] Interpreted by: DHRUV MONTES MD Electronically signed by: Reviewed: Reviewed by Me Diagonstic Imaging: CT Plain Films/CT/US/NM/MRI: abdomen, pelvis Comments [facility] [place] [place] NAME: [facility] REC#: [id number] PT STATUS: REG ER : 1950 PHYSICIAN: MERCY JEAN BAPTISTE MD ADMIT DATE: 06/20/21/ER Draft Date of Exam:06/20/21 CT ABDOMEN/PELVIS W CT abdomen/pelvis with contrast. TECHNIQUE: Multiple contiguous axial images were obtained through the abdomen and pelvis after administration of intravenous contrast. All CT scans use one or more of the following dose optimizing techniques: automated exposure control, MA and/or KvP adjustment based on patient size and exam type or iterative reconstruction. INDICATION: Vomiting and diarrhea. Unintentional weight loss. COMPARISON: 03/21/2019. FINDINGS: Lower chest: Stable benign 4 mm right middle lobe pulmonary nodule. Otherwise, lung bases are clear. Peritoneum: No free intraperitoneal air or fluid. Liver and biliary system: The liver is normal. Cholecystectomy. Mild dilation of the common bile duct is unchanged and likely due to reservoir effect. Spleen and Pancreas: Spleen is normal. The pancreas enhances normally without mass lesion or peripancreatic inflammatory changes. Adrenals: Normal. tract: The kidneys enhance normally without suspicious mass or obstruction. Urinary bladder is distended without wall thickening. Uterus and ovaries are normal in appearance. GI tract: Small sliding-type hiatal hernia is unchanged. Stomach is otherwise decompressed, limiting assessment. No bowel obstruction. No pericolonic inflammatory change. Stable postoperative changes at the rectosigmoid colon with an anastomotic staple line present. Normal appendix. Vasculature and Lymph nodes: Normal caliber aorta. No abdominal or pelvic lymphadenopathy. Musculoskeletal: No concerning osseous lesion. Diastasis of the rectus abdominis is unchanged. IMPRESSION: No acute obstructive or inflammatory process. Dictated on workstation # [id number] Dict: 06/20/212115 Trans: 06/20/212121 [facility] [id number] Interpreted by: DHRUV MONTES MD Electronically signed by: Departure Communication (Admissions) Time/Spoke to Admitting Phy: 20:12 Impression Primary Impression: Fever of unknown origin Additional Impression: Severe sepsis Disposition: ADMITTED INPATIENT Condition: Stable Admissions Decision to Admit Reason: Admit from ER (General) Decision to Admit/Date: Jun 20, 2021 Time/Decision to Admit Time: 21:32 Departure-Patient Inst. Referrals: SCOTT PALMER MD (PCP/Family) Primary Care Physician MERCY JEAN BAPTISTE MD Jun 20, 2021 18:59
[2021-06-20] MEDS ORDERED: LACTATED RINGERS 1,000 ML IV ONE ×3 (19:00→23:37)
[2021-06-20 19:30] LABS: BILIRUBIN,URINE NEGATIVE (NEGATIVE); CLARITY,URINE CLEAR; COLOR,URINE YELLOW; GLUCOSE, URINE (UA) NEGATIVE (NEGATIVE); KETONES,URINE 2+ (NEGATIVE); LEUKOCYTE ESTERASE ,URINE NEGATIVE (NEGATIVE); NITRITE,URINE NEGATIVE (NEGATIVE); PROTEIN,URINE NEGATIVE (NEGATIVE)
[2021-06-20 19:40] LABS: TSH (THYROID ANALYZER) 0.37 UIU/ML (0.35-4.94)
[2021-06-20 19:46] LABS: AMORPHOUS SEDIMENT,UR FEW AMOR URATES /LPF; BACTERIA,URINE TRACE /HPF
[2021-06-20] MEDS ORDERED: FAMOTIDINE 20MG/2ML IV (PEPCID) IV STA (20:10)
[2021-06-20] MEDS ORDERED: DOXYCYCLINE INJECTION 100 MG in NS (IVPB) 100 ML IV ONE (20:15)
[2021-06-20] MEDS ORDERED: PIPERACILLIN SODIUM/TAZOBACTAM 4.5 GM in NS (IVPB) 100 ML IV ONE (20:15)
[2021-06-20] MEDS ORDERED: NS 100 ML (IVPB) BAG IV ONE (20:45)
[2021-06-20] MEDS ORDERED: IOHEXOL 350 MG/ML 100 ML (OMNIPAQUE 350) VIAL IV ONE (20:45)
[2021-06-20] MEDS ORDERED: HOLD METFORMIN - RECEIVED CONTRAST 20 ML VIAL IV SCH (20:45)
--- NOTE | 2021-06-20 21:18 | Diagnostic Imaging Report ---
PROCEDURE: CT head without contrast. TECHNIQUE: Multiple contiguous axial images were obtained through the brain without the use of intravenous contrast. Auto Exposure Controls were utilized during the CT exam to meet ALARA standards for radiation dose reduction. INDICATION: Vomiting and diarrhea. Unintentional weight loss. Shaking. COMPARISON: 12/26/2018. FINDINGS: No intracranial hyperdense hemorrhage or space-occupying mass. No hydrocephalus or midline shift. Lazar-white matter differentiation is well preserved. No skull fracture. Basilar cisterns are widely patent. Paranasal sinuses and mastoid air cells are clear. IMPRESSION: No acute intracranial process by CT. Dictated by: Dictated on workstation # [id number]
--- NOTE | 2021-06-20 21:22 | Diagnostic Imaging Report ---
CT abdomen/pelvis with contrast. TECHNIQUE: Multiple contiguous axial images were obtained through the abdomen and pelvis after administration of intravenous contrast. All CT scans use one or more of the following dose optimizing techniques: automated exposure control, MA and/or KvP adjustment based on patient size and exam type or iterative reconstruction. INDICATION: Vomiting and diarrhea. Unintentional weight loss. COMPARISON: 03/21/2019. FINDINGS: Lower chest: Stable benign 4 mm right middle lobe pulmonary nodule. Otherwise, lung bases are clear. Peritoneum: No free intraperitoneal air or fluid. Liver and biliary system: The liver is normal. Cholecystectomy. Mild dilation of the common bile duct is unchanged and likely due to reservoir effect. Spleen and Pancreas: Spleen is normal. The pancreas enhances normally without mass lesion or peripancreatic inflammatory changes. Adrenals: Normal. tract: The kidneys enhance normally without suspicious mass or obstruction. Urinary bladder is distended without wall thickening. Uterus and ovaries are normal in appearance. GI tract: Small sliding-type hiatal hernia is unchanged. Stomach is otherwise decompressed, limiting assessment. No bowel obstruction. No pericolonic inflammatory change. Stable postoperative changes at the rectosigmoid colon with an anastomotic staple line present. Normal appendix. Vasculature and Lymph nodes: Normal caliber aorta. No abdominal or pelvic lymphadenopathy. Musculoskeletal: No concerning osseous lesion. Diastasis of the rectus abdominis is unchanged. IMPRESSION: No acute obstructive or inflammatory process. Dictated by: Dictated on workstation # [id number]
[2021-06-20] MEDS ORDERED: CATHETER FLUSH 10 ML SYR IV PRN (23:45)
[2021-06-21] MEDS ORDERED: EPINEPHrine 1 MG INJECTION 4 MG in NS (IVPB) 248 ML IV SCH ×2
[2021-06-21] MEDS ORDERED: NOREPINEPHRINE 8 MG/250 ML 250 ML IV SCH
[2021-06-21] MEDS: LACTATED RINGERS 1,000 ML IV SCH ×4 (00:20→20:13)
[2021-06-21] MEDS: VASOPRESSIN INJECTION 20 UNIT in NS (IVPB) 100 ML IV SCH ×2 (00:20→08:45)
[2021-06-21] MEDS ORDERED: ACETAMINOPHEN 500 MG TAB (TYLENOL) ONE (01:08)
[2021-06-21] MEDS ORDERED: ACETAMINOPHEN 500 MG TAB (TYLENOL) PO ONE (01:15)
[2021-06-21 05:41] LABS: ALBUMIN 2.6 GM/DL (3.2-4.5); POTASSIUM 3.6 MMOL/L (3.6-5.0)
[2021-06-21 05:42] LABS: CALCIUM 7.7 MG/DL (8.5-10.1)
[2021-06-21 05:44] LABS: TOTAL PROTEIN 5.1 GM/DL (6.4-8.2)
[2021-06-21 05:45] LABS: BILIRUBIN,TOTAL 0.9 MG/DL (0.1-1.0)
[2021-06-21 05:47] LABS: CREATININE SERUM 0.92 MG/DL (0.60-1.30); PHOSPHORUS 3.1 MG/DL (2.3-4.7)
[2021-06-21] MEDS: PIPERACILLIN/TAZOBACTAM (BULK) 4.5 GM in NS (IVPB) 100 ML IV SCH ×3 (05:48→22:06)
[2021-06-21 05:50] LABS: MAGNESIUM 1.8 MG/DL (1.6-2.4)
[2021-06-21] MEDS: MAGNESIUM 1 GM/100 ML IVPB 100 ML IV SCH (05:53)
[2021-06-21] MEDS: POTASSIUM CL 10MEQ/50ML IVPB 50 ML IV SCH (05:53)
[2021-06-21] MEDS: KCL 20 MEQ TAB (K-DUR) PO SCH (05:54)
[2021-06-21] MEDS ORDERED: CATHETER FLUSH 10 ML SYR IV SCH (06:00)
[2021-06-21] MEDS ORDERED: MAGN100T6 PO (07:51)
[2021-06-21] MEDS ORDERED: KCL 20 MEQ TAB (K-DUR) PO ONE (08:00)
[2021-06-21] MEDS: DOXYCYCLINE INJECTION 100 MG in NS (IVPB) 100 ML IV SCH ×2 (08:49→20:13)
--- NOTE | 2021-06-21 09:02 | History & Physical ---
History of Present Illness History of Present Illness Reason for visit/HPI PT IS A 70 Y/O FEMALE WHO IS KNOWN TO ME FROM CLINIC. SHE PRESENTED TO THE ER AFTER HAVING 1-2 DAYS OF NOT FEELING WELL AND THEN SHE HAD AN EPISODE OF NAUSEA, STOMACH UPSET AND NAUSEA WITH CHILLS. SHE WAS FOUND TO HAVE A TEMPERATURE ABOVE 39 CELSIUS AND AN ELEVATED LACTIC ACID LEVEL. PT WAS ADMITTED IN APRIL, HAD A DENTAL ABSCESS, WAS TREATED WITH CLINDAMYCIN FROM WHICH SHE HAD AN ALLERGIC REACTION, AND THE INFECTED TEETH WERE PULLED. 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 WHICH PROGRESSED UNTIL SHE WAS SEEN IN THE ER LAST NIGHT. Date of Admission Jun 20, 2021 at 21:32 Date Seen by a Provider: Jun 21, 2021 Time Seen by a Provider: 08:50 Attending Physician Scott Palmer MD Admitting Physician Scott Palmer MD Consult EICU Allergies and Home Medications Allergies Coded Allergies: ciprofloxacin (Verified Allergy, Unknown, 06/20/21) Patient Home Medication List Home Medication List Reviewed: Yes Aspirin (Aspirin EC) 81 Mg Tablet.dr, 81 MG PO DAILY, (Reported) Entered as Reported by: ARIANE CHRISTINE on 09/20/17 1203 Last Action: Continued Atorvastatin Calcium (Atorvastatin Calcium) 10 Mg Tablet, 10 MG PO DAILY, (Reported) Entered as Reported by: ARIANE CHRISTINE on 09/20/17 1203 Last Action: Held Hydroxyurea (Hydroxyurea) 500 Mg Capsule, 500 MG PO DAILY, (Reported) Entered as Reported by: CHARLIE GIBBS on 05/12/21 0846 Last Action: Held Magnesium Citrate (Magnesium Citrate) 100 Mg Tablet, 250 MG PO DAILY, (Reported) Entered as Reported by: GLENNA FOX on 06/21/21 0751 Last Action: Held Metoprolol Succinate (Metoprolol Succinate) 25 Mg Tab.er.24h, 25 MG PO DAILY, (Reported) Entered as Reported by: YONATHNA IGNACIO on 03/28/19 1408 Last Action: Held [place]-3S/Dha/Epa/Fish Oil (Fish Oil [place]-3 Softgel) 1 Each Capsule.dr, 2 EACH PO DAILY, (Reported) Entered as Reported by: CHARLIE GIBBS on 05/12/21 0846 Last Action: Held Pantoprazole Sodium (Protonix) 40 Mg Tablet.dr, 40 MG PO DAILY, (Reported) Entered as Reported by: ARIANE CHRISTINE on 09/20/17 1203 Last Action: Continued Discontinued Medications Alendronate Sodium (Alendronate Sodium) 70 Mg Tablet, 70 MG PO SUN, (Reported) Entered as Reported by: CHARLIE GIBBS on 05/12/21 0848 Last Action: Discontinued Clindamycin HCl (Clindamycin HCl) 300 Mg Capsule, 300 MG PO TID Prescribed by: SCOTT PALMER on 05/13/21905 Last Action: Discontinued Lactobacillus Acidophilus (Acidophilus Lactobacilli) 1 Each Capsule, 1 EACH PO TID Discontinued Reason: No Longer Taking Prescribed by: SCOTT PALMER on 05/13/21905 Last Action: Discontinued Past Vuxgarf-Rfwyho-Lhpcpq Hx Patient Social History Marrital Status: Number of Children: 3 Number of living children: 3 Living Status: LIVES BY HERSELF Employed/Student: retired Tobacco Use?: No Smoking Status: Never a Smoker Use of E-Cig and/or Vaping dev: No Substance use?: No Alcohol Use?: No Pt feels they are or have been: No Immunizations Up To Date Date of Influenza Vaccine: Sep 05, 2017 First/Initial COVID19 Vaccinat: 11/27/20 Second COVID19 Vaccination Anibal: 12/25/20 Tetanus Booster (TDap): Unknown Hepatitis A: No Hepatitis B: No Date of Pneumonia Vaccine: Nov 23, 2015 Seasonal Allergies Seasonal Allergies: Yes Current Status Advance Directives: No Primary Language: Com[place]an Preferred Spoken Language: [place]an Implanted or Applied Medical D: Orthopedic hardware (BILATERAL KNEES) Past Medical History Surgeries: Abdominal, Bowel Surgery, Cardiac, Section, Gallbladder, Joint Replacement, Orthopedic Currently Using CPAP: No Currently Using BIPAP: No High 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, 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: Menopausal Gastroesophageal Reflux, Obstructive Bowel (HX) Arthritis Are Your Blood Sugars Over 250: No Loss of Vision: Denies Did You Recieve Any Treatments: No Blood Disorders: No Adverse Reaction/Blood Tranf: No Family Medical History Reviewed Nursing Family Hx Cancer 19 MOTHER (LARYNX AND SPINE ) Family history: Cardiovascular disease 19 FATHER Cancer, CAD Over 55 Years Old, Hypertension Review of Systems Constitutional: chills; No diaphoresis; fever, malaise, weakness, weight loss EENTM: No hoarseness, No throat pain Respiratory: No cough, No dyspnea on exertion Cardiovascular: No chest pain, No edema, No palpitations Gastrointestinal: No abdominal pain, No constipation; diarrhea; No dysphagia, No heartburn; nausea; No vomiting Genitourinary: no symptoms reported Musculoskeletal: No back pain, No muscle pain, No muscle stiffness, No muscle cramps; muscle weakness Skin: no symptoms reported; No lesions, No rash Psychiatric/Neurological: Denies Anxiety, Denies Depressed All Other Systems Reviewed Negative Unless Noted: Yes Physical Exam Vital Signs Vital Signs - First Documented 06/20/21 17:19 Temp 39.9 Pulse 112 Resp 13 B/P (MAP) 139/50 (79) Pulse Ox 97 O2 Delivery Room Air Capillary Refill : Less Than 3 Seconds Height, Weight, BMI Height: 5'5.00" Weight: 160lbs. 0.0oz. [id number]; 24.76 BMI Method:Stated General Appearance: No Apparent Distress, WD/WN Eyes: Bilateral Eye Normal Inspection, Bilateral Eye PERRL, Bilateral Eye EOMI HEENT: PERRL/EOMI, Pharynx Normal Neck: Full Range of Motion, Normal Inspection, Non Tender, Supple Respiratory: Chest Non Tender, Lungs Clear, Normal Breath Sounds, No Accessory Muscle Use, No Respiratory Distress Cardiovascular: Regular Rate, Rhythm, No Murmur, Normal Peripheral Pulses Gastrointestinal: Normal Bowel Sounds, No Organomegaly, No Pulsatile Mass, Non Tender, Soft Rectal: Deferred Back: Normal Inspection, No CVA Tenderness, No Vertebral Tenderness Extremity: Normal Capillary Refill, Non Tender, No Calf Tenderness, Other (SURGICAL SCARS BILATERAL KNEES - NO WARMTH TO KNEES, NO INJURY, NO BRUISING) Neurologic/Psychiatric: Alert, Oriented x3, No Motor/Sensory Deficits, Normal Mood/Affect Skin: Normal Color, Warm/Dry Lymphatic: No Adenopathy Assessment/Plan Assessment and Plan FEVER OF UNKNOWN ORIGIN CHILLS DIARRHEA ANEMIA LEUKOPENIA ELEVATED LIVER ENZYMES LACTIC ACIDOSIS FEVER OF UNKNOWN ORIGIN WITH CHILLS AND LACTIC ACIDOSIS - PT ON ZOSYN - PT ON DOXYCYCLINE - CHECK TICK PANEL. - CHECK WEST NILE PANEL WELL. DIARRHEA WITH ELEVATED LIVER ENZYMES - CONSULT TO GEN SURGERY - ASKING FOR EGD, AND IF INDICATED THEY CAN EVAL FOR COLONOSCOPE. - H PYLORI ANTIBODY PENDING - STOOL FOR CDIFF, O AND P, CULTURE, CRYPTOSPORIDIUM WELL. ANEMIA - REPEAT LABS IN MORNING LEUKOPENIA - SEND PERIPHERAL SMEAR SINCE SHE HAS HAD THIS FEVER OF UNKNOWN ORIGIN. DVT PROPHYLAXIS WITH SCD'S AND LOVENOX GI PROHYLAXIS WITH PROTONIX AND PROBIOTICS Admission Diagnosis FEVER OF UNKNOWN ORIGIN CHILLS DIARRHEA ANEMIA LEUKOPENIA ELEVATED LIVER ENZYMES LACTIC ACIDOSIS Admission Status: Inpatient Order (span 2 midnights) Reason for Inpatient Admission: INPT ADMISSION FOR SEPSIS, MONITOR LABS AND IV ANTIBIOTICS FOR DETERMINATION OF SOURCE OF FEVER WILL REQUIRE AT LEST 48 -72 HOURS IN HOSPITAL. SCOTT PALMER MD Jun 21, 2021 09:02
--- NOTE | 2021-06-21 09:37 | Tele-ICU Consult ---
History of Present Illness History of Present Illness Date Seen by Provider: Jun 21, 2021 Time Seen by Provider: 09:36 Date of Admission 06/20/2021 Reason for Visit: SEPTIC SHOCK History of Present Illness Here with report of nausea, shaking, chills, fever, vomiting and overall not feeling well. This has been intermittent over the last month and a half. She said quite a bit of work-up and has not had any significant findings. Arrives with fever of 39.9 Celsius. She states that she had profound fatigue yesterday after going to a but had been a bit nauseated and had some diarrhea over the last 2 days. Overall she is not sure what is going on and they have not found underlying cause of her symptoms over the last month and a half despite work-up. She is vaccinated for Covid and has had multiple Covid test that are negative. SHE DENIES ANY RECENT TRAVEL, OR TICK BITES. now feeling better. Allergies and Home Medications Allergies Coded Allergies: ciprofloxacin (Verified Allergy, Unknown, 06/20/21) Home Medications Aspirin 81 Mg Tablet.dr, 81 MG PO DAILY, (Reported) Atorvastatin Calcium 10 Mg Tablet, 10 MG PO DAILY, (Reported) Hydroxyurea 500 Mg Capsule, 500 MG PO DAILY, (Reported) Magnesium Citrate 100 Mg Tablet, 250 MG PO DAILY, (Reported) Metoprolol Succinate 25 Mg Tab.er.24h, 25 MG PO DAILY, (Reported) [place]-3S/Dha/Epa/Fish Oil 1 Each Capsule.dr, 2 EACH PO DAILY, (Reported) Pantoprazole Sodium 40 Mg Tablet.dr, 40 MG PO DAILY, (Reported) Past Medical/Social/Family Hx Patient Social History Tobacco Use?: No Use of E-Cig and/or Vaping dev: No Substance use?: No Alcohol Use?: No Pt stated abuse/neglect: No Immunizations Up To Date Influenza Vaccine Up-to-Date: No; Not Current First/Initial COVID19 Vaccinat: 11/27/20 Second COVID19 Vaccination Anibal: 12/25/20 Tetanus Booster (TDap): Unknown Hepatitis A: No Hepatitis B: No TB Skin Test: None Date of Pneumonia Vaccine: Nov 23, 2015 Current Status Advance Directives: No Primary Language: Bulgarian Preferred Spoken Language: Bulgarian Review of Systems Constitutional: see HPI, fever, malaise Other PE PER ATTENDING Sepsis Event Evaluation Sepsis Stage: Sepsis Height, Weight, BMI Height: 5'5.00" Weight: 160lbs. 0.0oz. 72.288125jz; 24.76 BMI Method:Stated Exam Exam Patient acknowledged, consented, and participated in this virtual visit which was conducted using real time audio/video Vital Signs Date Time Temp Pulse Resp B/P (MAP) Pulse Ox O2 Delivery O2 Flow Rate FiO2 06/21/21 09:00 74 9 135/69 Room Air 06/21/21 08:38 Room Air 06/21/21 08:00 77 16 102/47 98 Room Air 06/21/21 07:51 36.4 06/21/21 07:00 64 17 97/50 94 Room Air 06/21/21 07:00 69 06/21/21 06:00 64 18 108/48 99 Room Air 06/21/21 05:00 75 10 117/54 91 Room Air 06/21/21 04:00 36.8 06/21/21 04:00 75 16 113/55 94 Room Air 06/21/21 03:47 Room Air 06/21/21 03:00 79 21 112/52 97 Room Air 06/21/21 02:00 85 21 114/52 Room Air 06/21/21 01:20 38.4 06/21/21 01:00 103 06/21/21 01:00 103 Room Air 06/21/21 00:45 80 24 132/50 90 Room Air 06/21/21 00:30 81 23 131/50 91 Room Air 06/21/21 00:15 79 20 138/52 91 Room Air 06/21/21 00:01 Room Air 06/21/21 00:00 78 14 132/58 91 Room Air 06/20/21 23:45 82 11 130/56 92 Room Air 06/20/21 23:30 76 12 124/53 89 Room Air 06/20/21 23:15 81 25 124/44 95 Room Air 06/20/21 23:05 74 06/20/21 23:00 37.0 75 20 110/61 96 Room Air 06/20/21 23:00 37.7 81 18 112/41 97 Room Air 06/20/21 17:19 39.9 112 13 139/50 (79) 97 Room Air I & O 06/21/21 07:00 Intake Total 3250 ml Output Total 600 ml Balance 2650 ml Height & Weight Height: 5'5.00" Weight: 160lbs. 0.0oz. 72.899479vv; 24.76 BMI Method:Stated General Appearance: No Apparent Distress, WD/WN HEENT: PERRL/EOMI, Pharynx Normal, Other (Rhinorrhea noted) Neck: Non Tender, Supple Respiratory: Lungs Clear, Normal Breath Sounds Cardiovascular: No Murmur, Tachycardia Capillary Refill: Less Than 3 Seconds Extremity: Normal Range of Motion, Non Tender Neurologic/Psychiatric: Alert, Oriented x3 Other comments PE PER ATTENDING PHYSICIAN Results Lab Laboratory Tests 06/20/21 17:24 06/21/21 05:17 Meds REVIEWED Radiology CXR AND ABD&PELVIS CT SCANS REVIEWED Assessment/Plan Assessment/Plan 1.MILD SEPSIS OF UNKNOWN SOURCE. AWAITING C/E AND SEROLOGIES. 2. LACTIC ACIDOSIS IMPROVED. PLAN. 1. AGREE WITH ANTIBIOTIC CHOICES 2. HYDRATE PATIENT AND FOLLOW C/S 3. [place] ANTIBIOTICS C/S AVAILABLE. 4. MAY TRANSFER PT TO MEDICAL FLOOR FROM CRITICAL CARE POINT OF VIEW Critical Care: Critically Ill Patient Time spent with patient (mins): 45 KALA MAURICIO MD Jun 21, 2021 09:37
--- NOTE | 2021-06-21 10:50 | Diagnostic Imaging Report ---
INDICATION: Fever, recent bilateral knee replacements EXAMINATION: Bilateral knees 06/21/2021 FINDINGS: 6 views of the knees. There are total knee arthroplasties bilaterally. These appear intact with no evidence for loosening. No fractures. Minimal fluid seen in the suprapatellar aspects of both knees. IMPRESSION: 1. Minimal joint fluid seen in both knees with no acute osseous abnormality. 2. Bilateral knee prostheses appear unremarkable. Dictated by: Dictated on workstation # [id number]
[2021-06-21 11:03] LABS: FREE T4 (FREE THYROXINE) 1.47 NG/DL (0.70-1.48)
[2021-06-21] MEDS ORDERED: HYDROcodone/APAP 5 MG/325 MG (LORTAB) TAB PO PRN (11:15)
[2021-06-21] MEDS ORDERED: fentaNYL INJ 100 MCG/2 ML AMP IVP PRN (11:15)
[2021-06-21 11:17] LABS: AMYLASE 55 U/L (25-125)
[2021-06-21 11:25] LABS: LIPASE 34 U/L (8-78)
[2021-06-21] MEDS: ONDANSETRON 4 MG/2 ML (SDV) Z0FRAN IV PRN ×2 (12:40→17:00)
[2021-06-21] MEDS: LACTOBACILLUS ACIDOPHILUS (PROBIOTIC) CAPSULE PO SCH ×2 (12:40→16:56)
--- NOTE | 2021-06-21 12:45 | CONSULTATION REPORT ---
DATE OF SERVICE: 06/21/2021 ATTENDING PRIMARY CARE PHYSICIAN: Marivel Palmer MD. HISTORY OF PRESENT ILLNESS: The patient is a 70-year-old female, who presented to the Emergency Department yesterday with a 1-day history of overall not feeling well as well as episodes of nausea and crampy abdominal pain. She eventually did have an episode of vomiting. She also did report having fevers and chills at home as well. She had had dental caries and these were extracted recently; however, these have healed well. A CT scan was performed, which did show contracted stomach as well as a possible hiatal hernia. There was also some ductal dilatation noted. Her liver function enzymes are mildly elevated as well. She had very similar symptoms approximately 2 months ago and was also worked up and these findings were again identified on CT scan. At this time now she is comfortable, does not report any abdominal pain as well as no nausea, no vomiting. She does have a history of gastroesophageal reflux disease. PAST MEDICAL HISTORY: Gastroesophageal reflux disease, osteoporosis, cardiac arrhythmia, hypercholesterolemia, coronary artery disease. PAST SURGICAL HISTORY: section x3, open cholecystectomy in 1995, open low anterior colorectal resection with end colostomy in 01/2012, reversal colostomy in 04/2012, right total knee arthroplasty in 2013, left total knee arthroplasty in 2013. ALLERGIES: CIPROFLOXACIN. MEDICATIONS: Aspirin 81 mg daily, atorvastatin 10 mg daily, hydroxyurea 500 mg daily, metoprolol 25 mg daily, Protonix 40 mg daily, alendronate 70 mg weekly. SOCIAL HISTORY: Negative smoke, negative alcohol. FAMILY HISTORY: Mother, metastatic thyroid cancer. VITAL SIGNS: Temperature 39.9, blood pressure 135/69, pulse 74, respirations 12, pulse ox 98% on room air. REVIEW OF SYSTEMS: Well-nourished female currently in no acute distress. She is not experiencing any shortness of breath or difficulty breathing. No chest pain, palpitations, diaphoresis. Crampy abdominal pain with associated nausea and vomiting and fever yesterday; however, none today. She states that she did have a bowel movement yesterday, which was normal in consistency, no red blood per rectum, no dark tarry stools. She reports having intermittent fevers and chills starting yesterday. No recent inadvertent weight loss. PHYSICAL EXAMINATION: CHEST: Good breath sounds bilaterally. HEART: Regular, no murmurs. EXTREMITIES: No lower extremity edema, negative Homans sign. HEENT: No scleral icterus. NECK: No cervical lymphadenopathy. ABDOMEN: Soft, nondistended, nontender. No peritoneal signs. No hernias. SKIN: Warm, dry. LABORATORY DATA: WBC 4.1, hemoglobin 11.3, hematocrit 35, platelets 313. Total bilirubin 0.9, AST 127, ALT 88, alkaline phosphatase 189, amylase 55, lipase 34. ASSESSMENT AND PLAN: A 70-year-old female with intermittent fevers and chills as well as crampy abdominal pain and nausea and vomiting. She had similar symptoms approximately [address] scan did not show any signs of obstruction as well as no intra-abdominal inflammatory changes or infections. The only abnormality detected was slight bile duct dilatation as well as elevated liver function enzymes. She did have an open cholecystectomy in 1989. This may represent a retained stone, which is unlikely; however, may also be a primary stone. However, we also cannot rule out malignancy and we will proceed with an MRCP and if any filling defects or lesions were identified, we would then refer her to gastroenterology for an ERCP. Job ID: [id number] DocumentID: [id number] Dictated Date: 06/21/2021 12:00:47 Robotic Machine Operator Date: 06/21/2021 12:44:42 Dictated By: KALYAN DALE MD [facility]
[2021-06-21 15:00] LABS: ABSOLUTE RETIC # 92 10e9/uL (24-90); BASOPHILS % (AUTO) 1 % (0-10); EOSINOPHILS % (AUTO) 0 % (0-10); HEMATOCRIT 48 % (35-52); HEMOGLOBIN 14.8 g/dL (11.5-16.0); LYMPHOCYTES # (AUTO) 0.5 10^3/uL (1.0-4.0); LYMPHOCYTES % (AUTO) 6 % (12-44); MEAN CORPUSCULAR HEMOGLOBIN 32 pg (25-34); MEAN CORPUSCULAR HGB CONC 31 g/dL (32-36); MEAN CORPUSCULAR VOLUME 105 fL (80-99); MEAN PLATELET VOLUME 10.3 fL (9.0-12.2); MONOCYTES # (AUTO) 0.5 10^3/uL (0.0-1.0); MONOCYTES % (AUTO) 6 % (0-12); NEUTROPHILS # (AUTO) 7.1 10^3/uL (1.8-7.8); NEUTROPHILS % (AUTO) 87 % (42-75); PLATELET COUNT 594 10^3/uL (130-400); WHITE BLOOD COUNT 8.2 10^3/uL (4.3-11.0)
[2021-06-21 15:32] LABS: ACANTHOCYTES MARKED; BAND NEUTROPHILS 2 %; HYPOCHROMASIA MARKED; LYMPHOCYTES % (MANUAL) 6 %; MONOCYTES % (MANUAL) 4 %; NEUTROPHILS % (MANUAL) 88 %
[2021-06-21] MEDS: PANTOPRAZOLE 40 MG (PROTONIX) VIAL IV SCH (20:13)
[2021-06-22] MEDS: PIPERACILLIN/TAZOBACTAM (BULK) 4.5 GM in NS (IVPB) 100 ML IV SCH ×3 (05:09→22:56)
[2021-06-22] MEDS: LACTATED RINGERS 1,000 ML IV SCH ×4 (05:10→22:58)
[2021-06-22 05:14] LABS: BASOPHILS % (AUTO) 1 % (0-10); EOSINOPHILS # (AUTO) 0.1 10^3/uL (0.0-0.3); EOSINOPHILS % (AUTO) 2 % (0-10); HEMATOCRIT 34 % (35-52); HEMOGLOBIN 11.7 g/dL (11.5-16.0); LYMPHOCYTES # (AUTO) 0.6 10^3/uL (1.0-4.0); LYMPHOCYTES % (AUTO) 21 % (12-44); MEAN CORPUSCULAR HEMOGLOBIN 32 pg (25-34); MEAN CORPUSCULAR HGB CONC 34 g/dL (32-36); MEAN CORPUSCULAR VOLUME 95 fL (80-99); MEAN PLATELET VOLUME 9.4 fL (9.0-12.2); MONOCYTES # (AUTO) 0.4 10^3/uL (0.0-1.0); MONOCYTES % (AUTO) 13 % (0-12); NEUTROPHILS # (AUTO) 1.8 10^3/uL (1.8-7.8); NEUTROPHILS % (AUTO) 61 % (42-75); PLATELET COUNT 306 10^3/uL (130-400)
[2021-06-22 05:26] LABS: ALBUMIN 2.6 GM/DL (3.2-4.5); POTASSIUM 3.6 MMOL/L (3.6-5.0)
[2021-06-22 05:27] LABS: CALCIUM 7.8 MG/DL (8.5-10.1)
[2021-06-22] MEDS: POTASSIUM CL 10MEQ/50ML IVPB 50 ML IV SCH (05:27)
[2021-06-22] MEDS: KCL 20 MEQ TAB (K-DUR) PO SCH (05:27)
[2021-06-22] MEDS: MAGNESIUM 1 GM/100 ML IVPB 100 ML IV SCH ×3 (05:27→09:00)
[2021-06-22 05:30] LABS: BILIRUBIN,TOTAL 0.9 MG/DL (0.1-1.0)
[2021-06-22 05:31] LABS: PHOSPHORUS 2.8 MG/DL (2.3-4.7)
[2021-06-22 05:32] LABS: CREATININE SERUM 0.8 MG/DL (0.60-1.30)
[2021-06-22 05:36] LABS: MAGNESIUM 1.7 MG/DL (1.6-2.4)
--- NOTE | 2021-06-22 08:22 | Progress Note ---
LEEANN PADILLA MED STUDENT 06/22/21 0822: Subjective Date Seen by a Provider: Jun 22, 2021 Time Seen by a Provider: 08:00 Subjective/Events-last exam Pt feeling much improved since her admission a couple days ago. Nausea resolved yesterday. Pt has been walking around and urinating a lot this am. Denies any SOB chest pain, dysuria, joint pain, or any recent skin changes before her admission. Review of Systems General: No Night Sweats, No Malaise HEENT: No Ear Pain, No Sinus Congestion Pulmonary: No Dyspnea, No Cough Cardiovascular: No: Chest Pain, Palpitations Gastrointestinal: No: Nausea, Vomiting, Abdominal Pain Genitourinary: No Dysuria, No Incontinence Neurological: No: Numbness, Confusion Focused Exam Lactate Level 06/20/21 23:15: Lactic Acid Level 2.16*H 06/21/21 05:17: Lactic Acid Level 1.15 06/21/21 10:08: Lactic Acid Level 1.39 Objective Exam Last Set of Vital Signs Vital Signs Date Time Temp Pulse Resp B/P (MAP) Pulse Ox O2 Delivery O2 Flow Rate FiO2 06/22/21 04:40 36.7 86 18 116/77 97 Room Air Capillary Refill : Less Than 3 Seconds I&O Intake and Output 06/22/21 00:00 Intake Total 3210 ml Output Total 600 ml Balance 2610 ml Intake Oral 1870 ml IV Total 1340 ml Output Urine Total 600 ml # Voids 9 # Bowel Movements 1 General: Alert, Oriented X3, Cooperative, No Acute Distress HEENT: Mucous Memb Moist/[place] Lungs: Clear to Auscultation, Normal Air Movement Heart: Regular Rate, No Murmurs Abdomen: Normal Bowel Sounds, No Tenderness Extremities: No Edema, Normal Pulses, No Tenderness/Swelling Results Lab Laboratory Tests 06/21/21 10:08: Lactic Acid Level 1.39, Amylase Level 55, Lipase 34, Thyroid Stimulating Hormone (TSH) 0.45, Free Thyroxine 1.47 06/22/21 04:50: White Blood Count 3.0L, Red Blood Count 3.61L, Hemoglobin 11.7#, Hematocrit 34L, Mean Corpuscular Volume 95, Mean Corpuscular Hemoglobin 32, Mean Corpuscular Hemoglobin Concent 34, Red Cell Distribution Width 18.1H, Platelet Count 306, Mean Platelet Volume 9.4, Immature Granulocyte % (Auto) 1, Neutrophils (%) (Auto) 61, Lymphocytes (%) (Auto) 21, Monocytes (%) (Auto) 13H, Eosinophils (%) (Auto) 2, Basophils (%) (Auto) 1, Neutrophils # (Auto) 1.8, Lymphocytes # (Auto) 0.6L, Monocytes # (Auto) 0.4, Eosinophils # (Auto) 0.1, Basophils # (Auto) 0.0, Immature Granulocyte # (Auto) 0.0, Sodium Level 136, Potassium Level 3.6, Chloride Level 103, Carbon Dioxide Level 24, Anion Gap 9, Blood Urea Nitrogen 9, Creatinine 0.80, Estimat Glomerular Filtration Rate 71, BUN/Creatinine Ratio 11, Glucose Level 93, Calcium Level 7.8L, Corrected Calcium 8.9, Phosphorus Level 2.8, Magnesium Level 1.7, Total Bilirubin 0.9, Aspartate Amino Transf (AST/SGOT) 130H, Alanine Aminotransferase (ALT/SGPT) 112H, Alkaline Phosphatase 195H, Total Protein 5.0L, Albumin 2.6L Microbiology 06/21/21 C. difficile GDH Antigen & Toxins - Final, Resulted 06/21/21 Stool Culture, Resulted Pending 06/20/21 MRSA Screen - Final, Complete MRSA not isolated 06/20/21 Blood Culture - Preliminary, Resulted No growth Assessment/Plan Assessment/Plan Assess & Plan/Chief Complaint FUO s/p severe sepsis - lactic acid of 5.08 in ER on 06/20 Abd/pelvic CT, head CT, CXR, u/a all neg on admission preliminary blood cultures neg. Pt up to date on screening procedures - colonoscopy approx 6 years ago normal. Pt was admitted with FUO in april - per pt had echo performed to r/o endocarditis. 06/22 thrombocytosis resolved. Tick panel pending - hx of tick illness in family tuleremia, H. Pylori, and [place] serology pending. Stool culture pending Zosyn and doxycline. Move to the floor today. Consider outpt WBC scan or PET scan. If further inpt workup neg. Biliary ectasia hx of open cholestectomy in 1989 Elevated LFTs and alk phos Dr. Ambriz consulted, appreciate recommendations. MRCP planned for today at noon per pt. Leukopenia. GERD PSVT hypercholestermia restart ambulatory metoprolol home meds DVT prophylaxis: ambulation and lovenox GI prophylaxis: protonix Lines and tubes: 2 x peripheral IV lines in place. SCOTT JOHNSON MD 06/22/21 0901: Subjective Subjective/Events-last exam WEST REPORTS THAT SHE IS FEELING MUCH BETTER, HAS NOT HAD ANY NAUSEA OR LOOSE STOOLS SINCE YESTERDAY. SHE DENIES ABDOMINAL DISCOMFORT AND SHE DENIES DYSURIA. SHE REPORTS THAT THE SYMPTOMS THAT BROUGHT HER INTO THE HOSPITAL HAVE IMPROVED SIGNIFICANTLY. Review of Systems General: No Chills, No Night Sweats, No Fatigue, No Malaise HEENT: No Head Aches, No Sore Throat Pulmonary: No Dyspnea, No Cough Cardiovascular: Palpitations (LAST NIGHT QUICKLY RESOLVED WITH VALSALVA MANEUVER); No: Chest Pain Gastrointestinal: No: Nausea, Vomiting, Abdominal Pain, Diarrhea Genitourinary: No Dysuria; Frequency; No Incontinence Musculoskeletal: No: back pain Neurological: No: Confusion Objective Exam General: Alert, Oriented X3, Cooperative, No Acute Distress HEENT: Atraumatic, Mucous Memb Moist/[place] Neck: Supple Lungs: Clear to Auscultation, Normal Air Movement Heart: Regular Rate Abdomen: Normal Bowel Sounds, No Tenderness Extremities: No Cyanosis, No Edema Neuro: Normal Speech, Cranial Nerves 3-12 NL Psych/Mental Status: Mental Status NL, Mood NL Assessment/Plan Assessment/Plan Assess & Plan/Chief Complaint FEVER OF UNKNOWN ORIGIN CHILLS DIARRHEA ANEMIA LEUKOPENIA ELEVATED LIVER ENZYMES LACTIC ACIDOSIS FEVER OF UNKNOWN ORIGIN WITH CHILLS AND LACTIC ACIDOSIS - PT ON ZOSYN - PT ON DOXYCYCLINE - CHECK TICK PANEL. - CHECKING WEST NILE PANEL WELL. DIARRHEA WITH ELEVATED LIVER ENZYMES - LFT'S INCREASED AGAIN TODAY - CONSULT TO GEN SURGERY - ASKING FOR EGD, AND IF INDICATED THEY CAN EVAL FOR COLONOSCOPY. - H PYLORI ANTIBODY PENDING - STOOL FOR CDIFF (NEGATIVE), O AND P, CULTURE, CRYPTOSPORIDIUM WELL - DR. DALE IS PLANNING ON MRCP, AND POSSIBLE ERCP WITH GI IN [place]. ANEMIA - STABLE LEUKOPENIA - SENT PERIPHERAL SMEAR SINCE SHE HAS HAD THIS FEVER OF UNKNOWN ORIGIN. DVT PROPHYLAXIS WITH SCD'S AND LOVENOX GI PROHYLAXIS WITH PROTONIX AND PROBIOTICS Supervisory-Addendum Brief Verification & Attestation Participated in pt care: history, MDM, physical Personally performed: exam, history, MDM, supervision of care Care discussed with: Medical Student Procedures: n/a Results interpretation: Verified all documentation AGREE WITH STUDENT NOTE, SEE MY NOTE FOR DOCUMENTATION OF MY ENCOUNTER WITH PT LEEANN PADILLA MED STUDENT Jun 22, 2021 08:22 SCOTT JOHNSON MD Jun 22, 2021 09:01
[2021-06-22] MEDS: LACTOBACILLUS ACIDOPHILUS (PROBIOTIC) CAPSULE PO SCH ×3 (08:53→17:19)
[2021-06-22] MEDS ORDERED: PANTOPRAZOLE 40 MG (PROTONIX) TAB PO SCH (09:00)
[2021-06-22] MEDS ORDERED: KCL 20 MEQ TAB (K-DUR) PO ONE (09:00)
[2021-06-22] MEDS: PANTOPRAZOLE 40 MG (PROTONIX) VIAL IV SCH ×2 (09:18→20:29)
[2021-06-22] MEDS ORDERED: ONDA4TAB11 PO (09:56)
[2021-06-22] MEDS: DOXYCYCLINE INJECTION 100 MG in NS (IVPB) 100 ML IV SCH ×2 (11:13→20:39)
--- NOTE | 2021-06-22 13:57 | Diagnostic Imaging Report ---
PROCEDURE: MR imaging cholangiography-pancreatography. TECHNIQUE: Multiplanar imaging of the abdomen was performed on a 1.5 Alejandra magnet without contrast. 3D reconstructions were made for the MRCP INDICATION: Nausea. Shakiness. COMPARISON: 06/20/2021. FINDINGS: The liver is normal in size. No focal hepatic lesions are seen. No evidence of hepatic steatosis on in and out of phase imaging. The portal vein demonstrates intact flow void. The gallbladder is surgically absent. The common bile duct measures 0.7 cm at the danielito hepatis. No filling defects are seen within the common bile duct. The pancreatic duct is not dilated and measures 0.3 cm in the head of the pancreas. No evidence of mass in the pancreas. No peripancreatic inflammatory changes. There is mild splenomegaly with the spleen measuring 13.1 cm. No focal splenic lesions are identified. The adrenal glands and kidneys demonstrate no acute abnormalities. The right kidney measures 9.6 cm in length and the left measures 9.4 cm. No evidence of acute hydronephrosis. No pathologically enlarged lymphadenopathy is seen in the abdomen. The included loops of bowel are nondistended. No evidence of free fluid or free air in the abdomen. IMPRESSION: 1. No evidence of choledocholithiasis. 2. No pancreatic ductal dilation. No findings to suggest mass in the head of the pancreas or peripancreatic inflammatory changes. 3. Mild splenomegaly. No focal splenic lesions. Dictated by: Dictated on workstation # [id number]
[2021-06-22] MEDS: ASPIRIN E.C. 81 MG (ECOTRIN) TAB PO SCH (14:00)
--- NOTE | 2021-06-22 16:08 | Conscious Sedation/ASA ---
Conscious Sedation Pre-Proced Time 16:00 ASA Score 2 For ASA 3 and 4: Consider anesthesia and medical clearance. Also, for patients with a history of failed moderate sedation consider anesthesia. Airway Lungs Heart ASA score ASA 1: a normal healthy patient ASA 2: a patient with a mild systemic disease (mid diabetes, controlled hypertension, obesity ASA 3: a patient with a severe systemic disease that limits activity (angina, COPD, prior Myocardial infarction) ASA 4: a patient with an incapacitating disease that is a constant threat to life (CHF, renal failure) ASA 5: a moribund patient not expected to survive 24 hrs. (ruptured aneurysm) ASA 6: a declared brain- patient whose organs are being harvested. For emergent operations, add the letter E after the classification Mallampati Classification Grade 2 Sedation Plan Analgesia, Amnesia, Plan communicated to team members, Discussed options with patient/fam, Discussed risks with patient/fam The patient is an appropriate candidate to undergo the planned procedure, sedation, and anesthesia. The patient immediately re-assessed prior to indication. KALYAN DALE MD Jun 22, 2021 16:07
--- NOTE | 2021-06-22 16:09 | Progress Note-Pre Operative ---
Pre-Operative Progress Note H&P Reviewed The H&P was reviewed, patient examined and no changes noted. Date Seen by Provider: Jun 22, 2021 Time Seen by Provider: 16:00 Date H&P Reviewed: Jun 22, 2021 Time H&P Reviewed: 16:00 Pre-Operative Diagnosis: abdominal pain, nausea, elevated LFT's KALYAN DALE MD Jun 22, 2021 16:09
[2021-06-23 04:46] LABS: BASOPHILS % (AUTO) 1 % (0-10); EOSINOPHILS # (AUTO) 0.1 10^3/uL (0.0-0.3); EOSINOPHILS % (AUTO) 4 % (0-10); HEMATOCRIT 34 % (35-52); HEMOGLOBIN 11.4 g/dL (11.5-16.0); LYMPHOCYTES # (AUTO) 0.8 10^3/uL (1.0-4.0); LYMPHOCYTES % (AUTO) 24 % (12-44); MEAN CORPUSCULAR HEMOGLOBIN 32 pg (25-34); MEAN CORPUSCULAR HGB CONC 33 g/dL (32-36); MEAN CORPUSCULAR VOLUME 96 fL (80-99); MEAN PLATELET VOLUME 9.7 fL (9.0-12.2); MONOCYTES # (AUTO) 0.6 10^3/uL (0.0-1.0); MONOCYTES % (AUTO) 16 % (0-12); NEUTROPHILS # (AUTO) 1.9 10^3/uL (1.8-7.8); NEUTROPHILS % (AUTO) 55 % (42-75); PLATELET COUNT 326 10^3/uL (130-400); WHITE BLOOD COUNT 3.4 10^3/uL (4.3-11.0)
[2021-06-23 04:58] LABS: ALBUMIN 2.6 GM/DL (3.2-4.5); POTASSIUM 3.8 MMOL/L (3.6-5.0)
[2021-06-23 04:59] LABS: CALCIUM 7.8 MG/DL (8.5-10.1)
[2021-06-23 05:00] LABS: TOTAL PROTEIN 4.9 GM/DL (6.4-8.2)
[2021-06-23 05:02] LABS: BILIRUBIN,TOTAL 0.8 MG/DL (0.1-1.0)
[2021-06-23 05:03] LABS: PHOSPHORUS 3.2 MG/DL (2.3-4.7)
[2021-06-23 05:04] LABS: CREATININE SERUM 0.73 MG/DL (0.60-1.30)
[2021-06-23 05:07] LABS: MAGNESIUM 1.9 MG/DL (1.6-2.4)
[2021-06-23] MEDS: KCL 20 MEQ TAB (K-DUR) PO SCH (05:07)
[2021-06-23] MEDS: POTASSIUM CL 10MEQ/50ML IVPB 50 ML IV SCH (05:07)
[2021-06-23] MEDS: MAGNESIUM 1 GM/100 ML IVPB 100 ML IV SCH (05:08)
[2021-06-23] MEDS: LACTATED RINGERS 1,000 ML IV SCH ×2 (05:57→14:08)
[2021-06-23] MEDS: PIPERACILLIN/TAZOBACTAM (BULK) 4.5 GM in NS (IVPB) 100 ML IV SCH ×2 (06:26→14:00)
[2021-06-23] MEDS: ASPIRIN E.C. 81 MG (ECOTRIN) TAB PO SCH (08:16)
[2021-06-23] MEDS: LACTOBACILLUS ACIDOPHILUS (PROBIOTIC) CAPSULE PO SCH ×3 (08:16→17:17)
--- NOTE | 2021-06-23 08:22 | Progress Note ---
LEEANN PADILLA MED STUDENT 06/23/21 0822: Subjective Date Seen by a Provider: Jun 23, 2021 Time Seen by a Provider: 07:50 Subjective/Events-last exam Pt improved today. Agrees she is back at her baseline. ERCP from 06/22 negative for retained gallstones. Review of Systems General: No Chills, No Night Sweats HEENT: No Sinus Congestion, No Sore Throat Pulmonary: No Dyspnea, No Cough Cardiovascular: No: Chest Pain, Palpitations Gastrointestinal: No: Nausea, Vomiting, Abdominal Pain Genitourinary: No Dysuria, No Incontinence Musculoskeletal: back pain; No: leg pain Neurological: No: Numbness, Confusion Focused Exam Lactate Level 06/20/21 23:15: Lactic Acid Level 2.16*H 06/21/21 05:17: Lactic Acid Level 1.15 06/21/21 10:08: Lactic Acid Level 1.39 Objective Exam Last Set of Vital Signs Vital Signs Date Time Temp Pulse Resp B/P (MAP) Pulse Ox O2 Delivery O2 Flow Rate FiO2 06/23/21 07:50 36.4 75 20 140/68 96 Room Air Capillary Refill : Less Than 3 Seconds I&O Intake and Output 06/22/21 23:59 Intake Total 1560 ml Output Total 400 ml Balance 1160 ml Intake Oral 1460 ml IV Total 100 ml Output Urine Total 400 ml # Voids 6 Results Lab Laboratory Tests 06/23/21 04:20: White Blood Count 3.4L, Red Blood Count 3.56L, Hemoglobin 11.4L, Hematocrit 34L, Mean Corpuscular Volume 96, Mean Corpuscular Hemoglobin 32, Mean Corpuscular Hemoglobin Concent 33, Red Cell Distribution Width 18.2H, Platelet Count 326, Mean Platelet Volume 9.7, Immature Granulocyte % (Auto) 2, Neutrophils (%) (Auto) 55, Lymphocytes (%) (Auto) 24, Monocytes (%) (Auto) 16H, Eosinophils (%) (Auto) 4, Basophils (%) (Auto) 1, Neutrophils # (Auto) 1.9, Lymphocytes # (Auto) 0.8L, Monocytes # (Auto) 0.6, Eosinophils # (Auto) 0.1, Basophils # (Auto) 0.0, Immature Granulocyte # (Auto) 0.1, Sodium Level 136, Potassium Level 3.8, Chloride Level 103, Carbon Dioxide Level 23, Anion Gap 10, Blood Urea Nitrogen 10, Creatinine 0.73, Estimat Glomerular Filtration Rate 78, BUN/Creatinine Ratio 14, Glucose Level 100, Calcium Level 7.8L, Corrected Calcium 8.9, Phosphorus Level 3.2, Magnesium Level 1.9, Total Bilirubin 0.8, Aspartate Amino Transf (AST/SGOT) 109H, Alanine Aminotransferase (ALT/SGPT) 108H, Alkaline Phosphatase 237H, Total Protein 4.9L, Albumin 2.6L Microbiology 06/21/21 Blood Culture - Preliminary, Resulted No growth 06/21/21 Urine Culture - Final, Complete NO GROWTH 06/21/21 Cryptosporidium/Giardia - Final, Complete 06/20/21 MRSA Screen - Final, Complete MRSA not isolated Assessment/Plan Assessment/Plan Assess & Plan/Chief Complaint FUO s/p severe sepsis - lactic acid of 5.08 in ER on 06/20 Abd/pelvic CT, head CT, CXR, u/a all neg on admission Pt up to date on screening procedures - colonoscopy approx 6 years ago normal. Pt was admitted with FUO in april - per pt had echo performed to r/o endocarditis. Pancultures neg. Tick panel & H. pylori serology neg. tuleremia & [place] serology pending. TPO AB pending. Zosyn and doxycline. Consider outpt WBC scan or PET scan. If further inpt workup neg. Biliary ectasia hx of open cholestectomy in 1989 Elevated LFTs and alk phos Dr. Ambriz consulted, appreciate recommendations. 06/22 MRCP normal - no findings to explain labs. Possible etiologies include sphincter of oddi dysfunction, or home med reaction (pt takes a stain and recently started hydroxyurea). normocytic anemia Leukopenia. Patient recently started on hydroxyurea because 'bone marrow was overworking' GERD PSVT hypercholestermia home meds DVT prophylaxis: ambulation and lovenox GI prophylaxis: protonix and probiotics Lines and tubes: 1 x peripheral IV lines in place. SCOTT JOHNSON MD 07/14/21 1225: Subjective Date Seen by a Provider: Jun 23, 2021 Time Seen by a Provider: 08:45 Subjective/Events-last exam PT FEELING BETTER, SHE REPORTS THAT SHE HAS NO ABDOMINAL PAIN - DIARRHEA IMPROVED, FEVERS HAVE IMPROVED WELL Review of Systems General: No Chills, No Night Sweats, No Fatigue HEENT: No Sinus Congestion, No Sore Throat Pulmonary: No Dyspnea, No Cough Cardiovascular: No: Chest Pain, Palpitations Gastrointestinal: Diarrhea (IMPROVED); No: Nausea, Abdominal Pain Genitourinary: No Dysuria Neurological: No: Numbness, Confusion Objective Exam General: Alert, Oriented X3, Cooperative, No Acute Distress HEENT: Atraumatic, PERRLA Neck: Supple Lungs: Clear to Auscultation, Normal Air Movement Heart: Regular Rate Abdomen: Normal Bowel Sounds, Soft, No Tenderness Extremities: No Clubbing, No Cyanosis Skin: No Rashes, No Breakdown Neuro: Normal Speech, Strength at 5/5 X4 Ext, Cranial Nerves 3-12 NL Psych/Mental Status: Mental Status NL, Mood NL Assessment/Plan Assessment/Plan Assess & Plan/Chief Complaint FEVER OF UNKNOWN ORIGIN CHILLS DIARRHEA ANEMIA LEUKOPENIA ELEVATED LIVER ENZYMES LACTIC ACIDOSIS FEVER OF UNKNOWN ORIGIN WITH CHILLS AND LACTIC ACIDOSIS - PT ON ZOSYN - PT ON DOXYCYCLINE - CHECK TICK PANEL. - CHECKING WEST NILE PANEL WELL. DIARRHEA WITH ELEVATED LIVER ENZYMES - LFT'S INCREASED AGAIN TODAY - CONSULT TO GEN SURGERY - APPRECIATE CONSULT - SEE HIS REPORT - H PYLORI ANTIBODY PENDING - STOOL FOR CDIFF (NEGATIVE), O AND P, CULTURE, CRYPTOSPORIDIUM WELL ANEMIA - STABLE LEUKOPENIA - SENT PERIPHERAL SMEAR SINCE SHE HAS HAD THIS FEVER OF UNKNOWN ORIGIN. AGREE WITH STUDENT NOTE - PT HAS BEEN ON HYDROXYUREA - THE RARE SIDE EFFECT PROFILE IS SIMILAR TO WEST'S SYMPTOMS - WILL STOP THIS MEDICATION AND MONITOR SYMPTOMS - WEST HAS INDICATED SHE WILL NOT TAKE ANYTHING ELSE IF THIS IS THE CAUSE OF HER SYMPTOMS DVT PROPHYLAXIS WITH SCD'S AND LOVENOX GI PROHYLAXIS WITH PROTONIX AND PROBIOTICS Supervisory-Addendum Brief Verification & Attestation Participated in pt care: history, MDM, physical Personally performed: exam, history, MDM, supervision of care Care discussed with: Medical Student Procedures: n/a Results interpretation: Verified all documentation SEE MY DOCUMENTATION LEEANN PADILLA MED STUDENT Jun 23, 2021 08:22 SCOTT JOHNSON MD Jul 14, 2021 12:25
[2021-06-23] MEDS: PANTOPRAZOLE 40 MG (PROTONIX) VIAL IV SCH (10:01)
[2021-06-23] MEDS: DOXYCYCLINE INJECTION 100 MG in NS (IVPB) 100 ML IV SCH (10:25)
[2021-06-23] MEDS ORDERED: LACTATED RINGERS 1,000 ML IV STA (15:18)
[2021-06-23] MEDS ORDERED: LACTATED RINGERS 1,000 ML IV ONE (15:24)
[2021-06-23] MEDS ORDERED: HURRICAINE EXT TUBE (BENZOCAINE) XX PRN (15:30)
[2021-06-23] MEDS ORDERED: LIDOCAINE JELLY 2% 6 ML SYRINGE MM PRN (15:30)
[2021-06-23] MEDS ORDERED: proPOfol 200 MG/20 ML (DIPRIVAN) VIAL IV ONE (15:53)
[2021-06-23 16:45] VITALS: BP 103/55
--- NOTE | 2021-06-23 16:47 | Anesthesia-General Post-Op ---
MAC Patient Condition Mental Status/LOC: Same as Preop Cardiovascular: Satisfactory Nausea/Vomiting: Absent Respiratory: Satisfactory Pain: Controlled Complications: Absent Post Op Complications Complications None Follow Up Care/Instructions Patient Instructions None needed. Anesthesiology Discharge Order Discharge Order Patient is doing well, no complaints, stable vital signs, no apparent adverse anesthesia problems. No complications reported per nursing. ALETA SAUCEDO CRNA Jun 23, 2021 16:47
[2021-06-23 16:50] VITALS: BP 119/59
[2021-06-23 16:55] VITALS: BP 124/58
--- NOTE | 2021-06-23 17:10 | Progress Note-Post Operative ---
Post-Operative Progess Note Surgeon (s)/Telegraph Office Telephone Clerk (s) Surgeon KALYAN DALE MD Telegraph Office Telephone Clerk: none Pre-Operative Diagnosis abdominal pain, nausea, elevated LFT's Post-Operative Diagnosis reflux esophagitis(stage 2), mild esoph stricture, small Hh(2cm), moderate gastritis. Procedure & Operative Findings Date of Procedure 06/23/21 Procedure Performed/Findings EGD with bx and balloon dilatation. Anesthesia Type mac Estimated Blood Loss Estimated blood loss (mL): minimal Specimens/Packing Specimens Removed ge jxn, antrum KALYAN DALE MD Jun 23, 2021 17:10
--- NOTE | 2021-06-23 18:58 | Physician Query Clarification ---
Physician Query-General Query to Physician: The medical record reflects the following clinical evidence: Clinical Indicators: Admission VS/LABS: HR 112, RR 13, BP 139/50, SpO2 97% sat on room air T 39.9, WBC 8.2 decreased to 3.0, Lactic acid, lactic acid 5.08 decreased to 3.11, Source of infection yet to be determined Risk Factor(s): Advanced Age, Chronic Medical Conditions Treatment: Tylenol, Zofran IV, 5 L lactated Ringer's, Zosyn IV, doxycycline IV Question: Do you agree with the impression of Severe Sepsis with septic shock per Dr. Enoc Soto and Dr. Hua Hernadez? 1. Yes; will document Severe sepsis with septic shock present on admission, now resolved, in the Progress Notes 2. No; will continue current documentation in the Progress Notes 3. Other; will document explanation of clinical findings 4. Clinically undetermined; no explanation for clinical findings Please clarify and document your clinical opinion in the Progress Notes and Discharge Summary including the definitive and/or presumptive diagnosis, (suspected or probable), related to the above clinical findings. Please include clinical findings supporting your diagnosis. In responding to this query, please exercise your independent professional judgment. The purpose of this communication is to more accurately reflect the complexity of your patients condition. The fact that a question is asked does not imply that any particular answer is desired or expected. Please remember a lack of response to the above will prompt a phone page by CDI/coding staff Thank you for timely response to this clarification. Nisha Mcelroy MSN, RN Clinical Truck Shop Supervisor [phone] [email or web address] PHYSICIAN RESPONSE: Based on the clinical findings in the record, please respond to the query above on this document as an addendum. Physician Response: Physician Response 2. No; will continue current documentation in the Progress Notes SHE WAS HAVING AN ADVERSE MEDICATION REACTION If you have questions please contact: [employer]: Ext: Thank you for your time and cooperation. Clinical Truck Shop Supervisor/Str[employer] This is a permanent part of the medical record NISHA MCELROY Jun 23, 2021 18:58 SCOTT JOHNSON MD Jul 14, 2021 12:28
--- NOTE | 2021-06-23 19:13 | Discharge Summary ---
Diagnosis/Chief Complaint Date of Admission Jun 20, 2021 at 21:32 Date of Discharge Discharge Date: Jun 23, 2021 Discharge Time: 19:00 Admission Diagnosis Admission Diagnosis FEVER OF UNKNOWN ORIGIN CHILLS DIARRHEA ANEMIA LEUKOPENIA ELEVATED LIVER ENZYMES LACTIC ACIDOSIS Discharge Diagnosis FEVER DUE TO ADVERSE MEDICATION REACTION TO HYDROXYUREA CHILLS DIARRHEA ANEMIA LEUKOPENIA ELEVATED LIVER ENZYMES LACTIC ACIDOSIS ESOPHAGEAL REFLUX ESOPHAGEAL STRICTURE MYELOPROLIFERATIVE DISORDER Reason Hospital Visit PT IS A 70 Y/O FEMALE WHO IS KNOWN TO ME FROM CLINIC. SHE PRESENTED TO THE ER AFTER HAVING 1-2 DAYS OF NOT FEELING WELL AND THEN SHE HAD AN EPISODE OF NAUSEA, STOMACH UPSET AND NAUSEA WITH CHILLS. SHE WAS FOUND TO HAVE A TEMPERATURE ABOVE 39 CELSIUS AND AN ELEVATED LACTIC ACID LEVEL. PT WAS ADMITTED IN APRIL, HAD A DENTAL ABSCESS, WAS TREATED WITH CLINDAMYCIN FROM WHICH SHE HAD AN ALLERGIC REACTION, AND THE INFECTED TEETH WERE PULLED. 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 WHICH PROGRESSED UNTIL SHE WAS SEEN IN THE ER LAST NIGHT. Discharge Summary Procedures: EGD WITH STRICTURE DILATION Consultations Discharge Physical Examination Allergies: Coded Allergies: ciprofloxacin (Verified Allergy, Unknown, 06/20/21) clindamycin (Verified Allergy, Unknown, 06/22/21) Vitals & I&Os General Appearance: Alert, Oriented X3, Cooperative, No Acute Distress HEENT: Atraumatic, PERRLA, EOMI, Mucous Memb Moist/[place] Respiratory: Clear to Auscultation, Normal Air Movement Cardiovascular: Regular Rate Abdominal: Normal Bowel Sounds, Soft, No Tenderness, No Hepatosplenomegaly Extremities: No Clubbing, No Cyanosis, No Edema Skin: No Rashes, No Breakdown, No Significant Lesion Neuro: Normal Speech, Strength at 5/5 X4 Ext, Cranial Nerves 3-12 NL Psych/Mental Status: Mental Status NL, Mood NL Hospital Course Was the Problem List Reviewed?: Yes FEVER DUE TO ADVERSE MEDICATION REACTION TO HYDROXYUREA CHILLS DIARRHEA ANEMIA LEUKOPENIA ELEVATED LIVER ENZYMES LACTIC ACIDOSIS ESOPHAGEAL REFLUX ESOPHAGEAL STRICTURE MYELOPROLIFERATIVE DISORDER ' DOCUMENTED SEVERE SEPSIS ON ADMISSION - STARTED ON IV ANTIBIOTICS - HOWEVER ONCE WE STOPPED HER HYDROXYUREA, SHE STARTED TO HAVE IMPROVEMENT IN HER SYMPTOMS - UPON FURTHER REVIEW - HER PREVIOUS PROBLEMS AND PREVIOUS ADMISSION WAS SHORTLY AFTER SHE HAD BEEN STARTED ON THE HYDROXYUREA - BOTH EPISODES STARTED AFTER SHE WAS OUTSIDE IN THE HEAT AND GOT A LITTLE OVERHEATED AND DEHYDRATED, I WILL HAVE HER STAY OFF OF THE HYDROXYUREA AND WE WILL RE-EVAL HER SYMPTOMS IN ABOUT A WEEK FROM DISCHARGE. SHE HAD CT ABD/PELVIS, UA, TICK PANEL, WEST NILE PANEL, REPEAT PERIPHERAL SMEAR - ALL NEGATIVE. EGD SHOWED STRICTURE - WAS DILATED AND SHE WILL BE TREATED WITH PPI FOR REFLUX. LIVER PANEL IMPROVING - WILL MONITOR OUTPATIENT PSVT - RESUME HOME REGIMEN Discharge Condition at discharge IMPROVED - FEVERS AND DIARRHEA RESOLVED Instructions to patient/family Please see electronic discharge instructions given to patient. Discharge Medications Reviewed and agree with Discharge Medication list on patient's Discharge Instruction sheet SCOTT JOHNSON MD Jun 23, 2021 19:13
[2021-06-23] MEDS ORDERED: LACT1CAP7 PO (19:15)
[2021-06-23] MEDS ORDERED: DOXY100T2 PO (19:15)
--- NOTE | 2021-06-23 19:19 | Discharge Inst-Simple/Standard ---
Discharge Inst-Standard Reconcile Patient Problems Problems Reviewed?: Yes Discharge Medications New, Converted or Re-Newed RX: Transmitted to Pharmacy Patient Instructions/Follow Up Plan of Care/Instructions/FU: 10 day follow up with [facility] 4 weeks with kido's office Activity as Tolerated: Yes Discharge Diet: Regular Diet Health Concerns: reaction to hydroxyurea Return to The Hospital For: any return of fever, chills or other symptoms SCOTT JOHNSON MD Jun 23, 2021 19:19
--- NOTE | 2021-07-08 00:43 | OPERATIVE REPORT ---
DATE OF SERVICE: ATTENDING PRIMARY CARE PHYSICIAN: Marivel Palmer MD. PREOPERATIVE DIAGNOSES: Crampy abdominal pain, nausea and vomiting, elevated liver function enzymes. POSTOPERATIVE DIAGNOSES: Reflux esophagitis stage II, mild distal esophageal stricture, small hiatal hernia 2 cm in size, mild gastritis. PROCEDURE: EGD with biopsy and balloon dilatation. SURGEON: Kalyan Dale MD. ANESTHESIA: Monitored anesthesia care. ESTIMATED BLOOD LOSS: Minimal. FINDINGS: Reflux esophagitis stage II, mild distal esophageal stricture, small hiatal hernia 2 cm in size, mild gastritis. DISPOSITION: The patient tolerated the procedure well. INDICATIONS: The patient is a 70-year-old female, who presented to the Emergency Department with a 1-day history of overall not feeling well with episodes of crampy abdominal pain and nausea as well as eventual episode of vomiting. She also did report having fevers and chills at home. A CT scan was performed, which showed a contracted stomach as well as possible hiatal hernia. There was also ductal dilatation noted as well as elevation of liver function enzymes. She has very similar symptoms two months previous with the similar CT scan findings. She was admitted and an MRCP was performed, which did not show any choledocholithiasis as well as no pancreatic ductal dilatation or any findings to suggest a mass at the head of the pancreas nor any peripancreatic inflammatory changes. Upon this admission, her liver function enzymes did improve to closer to normal. Due to her symptoms, we will proceed with an EGD. DESCRIPTION OF PROCEDURE: The patient was brought to the endoscopy suite, laid in the left lateral decubitus position. After adequate IV pain and sedative medications and monitored anesthesia care, the mouthpiece was applied. The endoscope was placed in the mouth, visualizing the pharynx and hypopharyngeal region. Vocal cords, epiglottis and vallecula identified and appeared to be normal. The endoscope was then gently intubated into the esophageal opening and esophagus insufflated. The endoscope was then advanced to the first, second and third portion of esophagus at the level of GE junction, a reflux esophagitis stage II identified as well as a mild distal esophageal stricture. A biopsy was taken with forceps with visualization of good hemostasis. The endoscope was then advanced in the stomach and endoscope retroflexed, visualizing a small hiatal hernia approximately 2 cm in size. There was a moderate gastritis noted. No formal ulcerations, polyps, or any neoplasms. A biopsy was taken of the antrum to rule out H. pylori with visualization of good hemostasis. The endoscope was then advanced to the pylorus and the first and second portion of the duodenum, which appeared normal with no distal obstructions. The balloon was then placed in the stomach and pulled back to the area of the stricture. We then pulled the balloon to the area of the stricture and then proceeded with graded dilatation from 2, 4, then 6 atmospheres of pressure with moderate resistance. This was approximately 20 mm in luminal diameter and left this in place for approximately 60 seconds. The balloon was desufflated and then removed with visualization of good hemostasis as well as no mucosal tears. The endoscope was then slowly withdrawn while taking a second look and suctioning of residual air with no additional findings. The patient tolerated the procedure well. We will recommend the necessary lifestyle and diet accommodation including small and more frequent meals, avoidance of eating at night as well as head elevation while lying supine. She also needs to avoid caffeinated beverages, spicy, greasy and acidic foods as well as continue to take PPI acid clinical education specialist on a daily basis. Job ID: [id number] DocumentID: [id number] Dictated Date: 07/07/2021 16:11:30 It Service Manager Date: 07/08/2021 00:42:12 Dictated By: KALYAN DALE MD
== END 2021-06-23 19:45 | disposition home or self-care (01) | DRG 864 ==
LOC: EDUNIT# 17:00 → ER 17:03 → ICU 21:32 → CSD 06-21 12:59 → 4TH 06-22 16:47
PROVIDERS: ADMIT Family Medicine; ATTEND Family Medicine
PROC: 0DB48ZX Excision of Esophagogastric Junction, Via Natural or Artificial Opening Endoscopic, Diagnostic (ICD-10-PCS; 2021-06-23)
PROC: 0DB78ZX Excision of Stomach, Pylorus, Via Natural or Artificial Opening Endoscopic, Diagnostic (ICD-10-PCS; 2021-06-23)
PROC: 0D758ZZ Dilation of Esophagus, Via Natural or Artificial Opening Endoscopic (ICD-10-PCS; principal; 2021-06-23 16:08)
DX: R50.2 Drug induced fever (principal); E87.2 Acidosis; I47.1 Supraventricular tachycardia; C94.6 Myelodysplastic disease, not elsewhere classified; R19.7 Diarrhea, unspecified; K21.00 Gastro-esophageal reflux disease with esophagitis, without bleeding; K44.9 Diaphragmatic hernia without obstruction or gangrene; K22.2 Esophageal obstruction; K29.70 Gastritis, unspecified, without bleeding; R74.8 Abnormal levels of other serum enzymes; D64.9 Anemia, unspecified; K21.9 Gastro-esophageal reflux disease without esophagitis; E78.00 Pure hypercholesterolemia, unspecified; M19.90 Unspecified osteoarthritis, unspecified site; M81.0 Age-related osteoporosis without current pathological fracture; I25.10 Atherosclerotic heart disease of native coronary artery without angina pectoris; Z79.82 Long term (current) use of aspirin; Z88.1 Allergy status to other antibiotic agents; Z20.822 Contact with and (suspected) exposure to COVID-19; T45.1X5A Adverse effect of antineoplastic and immunosuppressive drugs, initial encounter
CPT/HCPCS: 36415; 70450; 71045; 74177; 74181; 80053; 81000; 82150; 83605; 83690; 83735; 84100; 84145; 84439; 84443; 84484; 85007; 85025; 85027; 85045; 85055; 85610; 85730; 86141; 86376; 86618; 86666; 86668; 86677; 86757; 86788; 86789; 87015; 87040; 87045; 87046; 87081; 87088; 87324; 87328; 87329; 87449; 87636; 87899; 88305; 93005; 96361; 96365; 96375; 96376